=== PATIENT | male | born 1940 | race Caucasian/White ===

== ENCOUNTER 2017-06-15 11:55 | Day surgery (SDC) | payer MEDICARE, OTHER ==
[~2017-06-15] VITALS: Ht 180.3 cm; Wt 89.0 kg
[~2017-06-15 11:55] MED LIST: ACETAMINOPHEN500 MG PO; ASPI325EC PO; Aspir 8181 MG PO; CETI5 PO; CHLO25A; CHLO25A PO; CLAR500 PO; CLIN300 PO; ESOM20 PO; FEXPSEER PO; Hair, Skin & N1 EACH PO; LEVFLO500 PO; Multi-Day Vita1 EACH PO; OMEP20ER PO; ONDA8 PO; OXYC10TA19 PO; Oxycodone-Apap1 EAC3; PROC10; RITUXIMAB; TREANDA25 MG IV
[2017-06-15] MEDS ORDERED: Omeprazole20 M1 PO (12:49)
[2017-06-15] MEDS ORDERED: CITA20 PO (12:49)
[2017-06-15] MEDS ORDERED: FLONASE ALLERG9.9 ML INH (12:50)
[2018-02-11] MEDS ORDERED: Celexa20 MG PO (09:24)
[2018-02-11] MEDS ORDERED: Lomotil Tablet1 EACH PO (09:26)
[2018-02-14] MEDS ORDERED: Zofran4 MG PO (14:33)
[2018-02-14] MEDS ORDERED: CIPR500 PO (14:34)
[2018-02-14] MEDS ORDERED: VANC125 PO (14:34)
[2018-02-14] MEDS ORDERED: SACC250C PO (14:34)
[2018-03-08] MEDS ORDERED: PRED20 PO (10:24)
== END 2017-06-15 14:35 | disposition home or self-care (01) ==
LOC: ORSCSDS 11:55
PROVIDERS: Ophthalmology
PROC: 08RK3JZ Replacement of Left Lens with Synthetic Substitute, Percutaneous Approach (ICD-10-PCS; principal; 2017-06-15 13:30)
DX: H25.12 Age-related nuclear cataract, left eye (principal); Z85.72 Personal history of non-Hodgkin lymphomas; Z79.82 Long term (current) use of aspirin; Z79.899 Other long term (current) drug therapy
CPT/HCPCS: J0171; J2250; J3010; J7040; V2632

== ENCOUNTER 2017-06-30 23:08 | Inpatient (IN) | payer MEDICARE, OTHER ==
[~2017-06-30] VITALS: Ht 182.9 cm; Wt 90.6 kg
[~2017-06-30 23:08] MED LIST changes: +CITA20 PO; +FLONASE ALLERG9.9 ML INH; +Omeprazole20 M1 PO
[2017-06-30 23:32] LABS: BASOPHILS ABSOLUTE AUTO 0.01 K/mm3 (0.00-0.23); BASOPHILS PERCENT AUTO 0 % (0-2); EOSINOPHILS ABSOLUTE AUTO 0.05 K/mm3 (0.00-0.68); EOSINOPHILS PERCENT AUTO 1 % (0-6); Hematocrit 32.8 % (37.0-53.0); Hemoglobin 10.8 g/dL (13.5-17.5); IMMATURE GRAN ABSOLUTE AUTO 0.05 K/mm3 (0.00-0.10); IMMATURE GRAN PERCENT AUTO 1 % (0-1); LYMPHOCYTES PERCENT AUTO 8 % (21-46); MONOCYTES ABSOLUTE AUTO 0.93 K/mm3 (0.16-1.47); MONOCYTES PERCENT AUTO 19 % (4-13); Mean Corpuscular HGB 29.4 pg (26.0-34.0); Mean Corpuscular HGB Conc 32.9 g/dL (31.5-36.5); Mean Corpuscular Volume 89 fL (80-100); Mean Platelet Volume 8.5 fL (9.1-12.4); NEUTROPHILS PERCENT AUTO 71 % (41-73); Platelet Count 204 K/mm3 (150-400); RDW Coefficient Variation 13.5 % (11.7-14.2); RDW Standard Deviation 44.4 fL (35.1-46.3); Red Blood Cell Count 3.67 M/mm3 (4.30-5.90); White Blood Cell Count 4.94 K/mm3 (4.00-11.30)
[2017-06-30 23:47] LABS: Alanine Aminotransfer (ALT/SGP 15 U/L (12-78); Albumin, Blood 2.3 g/dL (3.4-5.0); Albumin/Globulin Ratio 0.5 (0.8-1.8); Alk Phos 73 U/L (50-136); Anion Gap 6 mmol/L (6-16); Aspartate Aminotrans (AST/SGOT 23 U/L (12-37); Bilirubin, Total 0.3 mg/dL (0.1-1.0); Blood Urea Nitrogen 13 mg/dL (8-24); Bun/Creatinine Ratio 19.9 (12.0-20.0); CO2, Blood 28 mmol/L (21-32); Calcium, Blood 7.9 mg/dL (8.5-10.1); Chloride, Blood 101 mmol/L (98-108); Creatinine, Blood 0.65 mg/dL (0.60-1.20); Globulin, Blood 4.6 g/dL (2.2-4.0); Glomerular Filtration Rate >60 (60-); Glucose, Blood 102 mg/dL (70-99); Potassium, Blood 4.3 mmol/L (3.5-5.5); Sodium, Blood 135 mmol/L (136-145); Total Protein, Blood 6.9 g/dL (6.4-8.2)
[2017-06-30 23:50] LABS: Influenza A Negative (NEGATIVE); Influenza B Negative (NEGATIVE)
[2017-07-01] LABS: International Normalized Ratio 1.03; Prothrombin Time Results 10.7 Sec (9.7-11.5)
[2017-07-01 00:09] LABS: Troponin I <0.015 ng/mL (0.000-0.040)
[2017-07-01 00:53] LABS: Source, Urine Clean Catch
[2017-07-01 00:55] LABS: Bilirubin, Urine Neg (Neg); Blood, Urine 1+ (Neg); Glucose Qualitative, Urine Neg (Neg); Ketones, Urine 2+ (Neg); Leukocyte Esterase, Urine Neg (Neg); Nitrite, Urine Neg (Neg); Protein, Urine 2+ (Neg); Urobilinogen, Urine NORM (Normal); pH, Urine 6.5 (5.0-8.0)
[2017-07-01 01:03] LABS: Amorphous Light (0-Heavy); Appearance, Urine Clear (Clear); Bacteria Not Seen /hpf; Color, Urine Yellow (P-Yellow); Mucus Light (0-Heavy); Red Blood Cells, Urine Rare /hpf (0-2); Squamous Epithelial Cells Rare /hpf (Few); White Blood Cells, Urine Not Seen /hpf (0-5)
[2017-07-01 06:18] LABS: BASOPHILS ABSOLUTE AUTO 0.01 K/mm3 (0.00-0.23); BASOPHILS PERCENT AUTO 0 % (0-2); EOSINOPHILS ABSOLUTE AUTO 0.01 K/mm3 (0.00-0.68); EOSINOPHILS PERCENT AUTO 0 % (0-6); Hematocrit 29.4 % (37.0-53.0); Hemoglobin 9.9 g/dL (13.5-17.5); IMMATURE GRAN ABSOLUTE AUTO 0.03 K/mm3 (0.00-0.10); IMMATURE GRAN PERCENT AUTO 1 % (0-1); LYMPHOCYTES PERCENT AUTO 17 % (21-46); MONOCYTES ABSOLUTE AUTO 0.63 K/mm3 (0.16-1.47); MONOCYTES PERCENT AUTO 22 % (4-13); Mean Corpuscular HGB 29.7 pg (26.0-34.0); Mean Corpuscular HGB Conc 33.7 g/dL (31.5-36.5); Mean Corpuscular Volume 88 fL (80-100); Mean Platelet Volume 8.6 fL (9.1-12.4); NEUTROPHILS ABSOLUTE AUTO 1.71 K/mm3 (1.96-9.15); NEUTROPHILS PERCENT AUTO 59 % (41-73); Platelet Count 201 K/mm3 (150-400); RDW Coefficient Variation 13.5 % (11.7-14.2); RDW Standard Deviation 43.5 fL (35.1-46.3); Red Blood Cell Count 3.33 M/mm3 (4.30-5.90); White Blood Cell Count 2.89 K/mm3 (4.00-11.30)
[2017-07-01 06:28] LABS: Alanine Aminotransfer (ALT/SGP 13 U/L (12-78); Albumin, Blood 2.1 g/dL (3.4-5.0); Albumin/Globulin Ratio 0.5 (0.8-1.8); Alk Phos 66 U/L (50-136); Anion Gap 8 mmol/L (6-16); Aspartate Aminotrans (AST/SGOT 15 U/L (12-37); Bilirubin, Total 0.2 mg/dL (0.1-1.0); Blood Urea Nitrogen 12 mg/dL (8-24); Bun/Creatinine Ratio 18.8 (12.0-20.0); CO2, Blood 26 mmol/L (21-32); Chloride, Blood 103 mmol/L (98-108); Creatinine, Blood 0.64 mg/dL (0.60-1.20); Globulin, Blood 4.2 g/dL (2.2-4.0); Glomerular Filtration Rate >60 (60-); Glucose, Blood 102 mg/dL (70-99); Potassium, Blood 3.8 mmol/L (3.5-5.5); Sodium, Blood 137 mmol/L (136-145); Total Protein, Blood 6.3 g/dL (6.4-8.2)
[2017-07-02 05:14] LABS: Hematocrit 30.2 % (37.0-53.0); Hemoglobin 10.1 g/dL (13.5-17.5); Mean Corpuscular HGB 29.5 pg (26.0-34.0); Mean Corpuscular HGB Conc 33.4 g/dL (31.5-36.5); Mean Corpuscular Volume 88 fL (80-100); Mean Platelet Volume 8.6 fL (9.1-12.4); Platelet Count 195 K/mm3 (150-400); RDW Coefficient Variation 13.7 % (11.7-14.2); RDW Standard Deviation 44.1 fL (35.1-46.3); Red Blood Cell Count 3.42 M/mm3 (4.30-5.90); White Blood Cell Count 3.91 K/mm3 (4.00-11.30)
[2017-07-03 05:13] LABS: Hemoglobin 10.4 g/dL (13.5-17.5); Mean Corpuscular HGB 29.1 pg (26.0-34.0); Mean Corpuscular HGB Conc 33.5 g/dL (31.5-36.5); Mean Corpuscular Volume 87 fL (80-100); Mean Platelet Volume 8.6 fL (9.1-12.4); Platelet Count 195 K/mm3 (150-400); RDW Coefficient Variation 13.6 % (11.7-14.2); RDW Standard Deviation 43.2 fL (35.1-46.3); Red Blood Cell Count 3.58 M/mm3 (4.30-5.90); White Blood Cell Count 3.65 K/mm3 (4.00-11.30)
[2017-07-04] MEDS ORDERED: LEVO750 PO (10:46)
[2017-07-04] MEDS ORDERED: Pred Forte1 ML LEFTEYE (10:46)
[2018-02-11] MEDS ORDERED: Celexa20 MG PO (09:24)
[2018-02-11] MEDS ORDERED: Lomotil Tablet1 EACH PO (09:26)
[2018-02-14] MEDS ORDERED: Zofran4 MG PO (14:33)
[2018-02-14] MEDS ORDERED: VANC125 PO (14:34)
[2018-02-14] MEDS ORDERED: CIPR500 PO (14:34)
[2018-02-14] MEDS ORDERED: SACC250C PO (14:34)
[2018-03-08] MEDS ORDERED: PRED20 PO (10:24)
== END 2017-07-04 12:09 | disposition home health service (06) | DRG 871 ==
LOC: ER 23:08 → MEDS 23:09 → ENPENDDIS 07-04 10:11 → MEDS 07-04 12:09
PROVIDERS: Emergency Medicine; Internal Medicine; Physician Assistant
DX: A41.9 Sepsis, unspecified organism (principal); J18.9 Pneumonia, unspecified organism; C85.90 Non-Hodgkin lymphoma, unspecified, unspecified site; K21.9 Gastro-esophageal reflux disease without esophagitis; Z88.1 Allergy status to other antibiotic agents; Z88.0 Allergy status to penicillin; Z79.82 Long term (current) use of aspirin; Z79.899 Other long term (current) drug therapy
CPT/HCPCS: 36415; 71046; 80053; 81001; 83605; 83615; 84165; 84436; 84443; 84484; 85025; 85027; 85610; 85651; 85730; 85810; 86334; 87040; 87070; 87076; 87086; 87205; 87804; 93005; 93010; 96365; 96375; 97116; 97161; 99285; G0378; G8978; G8979; J0456; J0696; J1650; J1956; J3370; J3490; J7030; J7050

== ENCOUNTER 2017-08-30 12:12 | Inpatient (IN) | payer MEDICARE, OTHER ==
[~2017-08-30] VITALS: Ht 182.9 cm; Wt 88.1 kg
[~2017-08-30 12:12] MED LIST changes: +LEVO750 PO; +Pred Forte1 ML LEFTEYE
[2017-08-30 14:15] LABS: Hematocrit 34.9 % (37.0-53.0); Hemoglobin 11.4 g/dL (13.5-17.5); Mean Corpuscular HGB 29.4 pg (26.0-34.0); Mean Corpuscular HGB Conc 32.7 g/dL (31.5-36.5); Mean Corpuscular Volume 90 fL (80-100); Mean Platelet Volume 8.7 fL (9.1-12.4); Platelet Count 238 K/mm3 (150-400); RDW Coefficient Variation 14.2 % (11.7-14.2); RDW Standard Deviation 46.8 fL (35.1-46.3); Red Blood Cell Count 3.88 M/mm3 (4.30-5.90); White Blood Cell Count 3.31 K/mm3 (4.00-11.30)
[2017-08-30] MEDS ORDERED: CITA20 PO (14:19)
[2017-08-30 14:24] LABS: International Normalized Ratio 1.03; Prothrombin Time Results 10.7 Sec (9.7-11.5)
[2017-08-30 14:35] LABS: BAND PERCENT MAN 2 % (0-8); BASOPHILS PERCENT MAN 0 % (0-2); EOSINOPHILS ABSOLUTE MAN 0.03 K/mm3 (0.00-0.68); EOSINOPHILS PERCENT MAN 1 % (0-6); LYMPHOCYTES ABSOLUTE MAN 0.43 K/mm3 (0.84-5.20); LYMPHOCYTES PERCENT MAN 13 % (21-46); MONOCYTES ABSOLUTE MAN 0.43 K/mm3 (0.16-1.47); MONOCYTES PERCENT MAN 13 % (4-13); NEUTROPHILS ABSOLUTE MAN 2.41 K/mm3 (1.96-9.15); SEG NEUTROPHILS PERCENT MAN 71 % (41-73); TOTAL CELLS COUNTED 100
[2017-08-30 14:41] LABS: Alanine Aminotransfer (ALT/SGP 12 U/L (12-78); Albumin, Blood 2.7 g/dL (3.4-5.0); Albumin/Globulin Ratio 0.6 (0.8-1.8); Alk Phos 86 U/L (50-136); Anion Gap 5 mmol/L (6-16); Aspartate Aminotrans (AST/SGOT 17 U/L (12-37); Bilirubin, Total 0.3 mg/dL (0.1-1.0); Blood Urea Nitrogen 12 mg/dL (8-24); Bun/Creatinine Ratio 17.8 (12.0-20.0); CO2, Blood 27 mmol/L (21-32); Calcium, Blood 8.7 mg/dL (8.5-10.1); Chloride, Blood 106 mmol/L (98-108); Creatinine, Blood 0.67 mg/dL (0.60-1.20); Globulin, Blood 4.4 g/dL (2.2-4.0); Glomerular Filtration Rate >60 (60-); Glucose, Blood 90 mg/dL (70-99); Potassium, Blood 3.9 mmol/L (3.5-5.5); Sodium, Blood 138 mmol/L (136-145); Total Protein, Blood 7.1 g/dL (6.4-8.2)
[2017-08-31 04:38] LABS: BASOPHILS ABSOLUTE AUTO 0.02 K/mm3 (0.00-0.23); BASOPHILS PERCENT AUTO 1 % (0-2); EOSINOPHILS ABSOLUTE AUTO 0.02 K/mm3 (0.00-0.68); EOSINOPHILS PERCENT AUTO 1 % (0-6); Hematocrit 29.6 % (37.0-53.0); IMMATURE GRAN ABSOLUTE AUTO 0.02 K/mm3 (0.00-0.10); IMMATURE GRAN PERCENT AUTO 1 % (0-1); LYMPHOCYTES ABSOLUTE AUTO 0.86 K/mm3 (0.84-5.20); LYMPHOCYTES PERCENT AUTO 21 % (21-46); MONOCYTES ABSOLUTE AUTO 0.93 K/mm3 (0.16-1.47); MONOCYTES PERCENT AUTO 22 % (4-13); Mean Corpuscular HGB 29.4 pg (26.0-34.0); Mean Corpuscular HGB Conc 33.8 g/dL (31.5-36.5); Mean Platelet Volume 8.7 fL (9.1-12.4); NEUTROPHILS ABSOLUTE AUTO 2.31 K/mm3 (1.96-9.15); NEUTROPHILS PERCENT AUTO 55 % (41-73); Platelet Count 230 K/mm3 (150-400); RDW Coefficient Variation 14.4 % (11.7-14.2); RDW Standard Deviation 46.1 fL (35.1-46.3); White Blood Cell Count 4.16 K/mm3 (4.00-11.30)
[2017-08-31 04:52] LABS: Mean Corpuscular Volume 87 fL (80-100)
[2017-08-31 05:11] LABS: Very Low Density Lipoprot Chol 14 mg/dL (6-32)
[2017-08-31 05:20] LABS: Alanine Aminotransfer (ALT/SGP 10 U/L (12-78); Albumin, Blood 2.4 g/dL (3.4-5.0); Albumin/Globulin Ratio 0.6 (0.8-1.8); Alk Phos 77 U/L (50-136); Anion Gap 5 mmol/L (6-16); Aspartate Aminotrans (AST/SGOT 14 U/L (12-37); Bilirubin, Total 0.4 mg/dL (0.1-1.0); Blood Urea Nitrogen 13 mg/dL (8-24); Bun/Creatinine Ratio 21.5 (12.0-20.0); CHOL/HDL RATIO 3.1; CO2, Blood 26 mmol/L (21-32); Calcium, Blood 8.1 mg/dL (8.5-10.1); Chloride, Blood 104 mmol/L (98-108); Cholesterol 99 mg/dL (50-200); Creatinine, Blood 0.61 mg/dL (0.60-1.20); Glomerular Filtration Rate >60 (60-); Glucose, Blood 88 mg/dL (70-99); HDL Cholesterol 32 mg/dL (>39); LDL/HDL RATIO 1.7; Low Density Lipoprotein Chol 53 mg/dL (0-110); Potassium, Blood 3.7 mmol/L (3.5-5.5); Sodium, Blood 135 mmol/L (136-145); Thyroid Stimulating Hormone 0.648 uIU/mL (0.360-4.800); Total Protein, Blood 6.4 g/dL (6.4-8.2); Triglycerides 71 mg/dL (30-160)
[2017-09-01 05:01] LABS: BASOPHILS ABSOLUTE AUTO 0.02 K/mm3 (0.00-0.23); BASOPHILS PERCENT AUTO 1 % (0-2); EOSINOPHILS ABSOLUTE AUTO 0.16 K/mm3 (0.00-0.68); EOSINOPHILS PERCENT AUTO 4 % (0-6); Hemoglobin 10.5 g/dL (13.5-17.5); IMMATURE GRAN ABSOLUTE AUTO 0.02 K/mm3 (0.00-0.10); IMMATURE GRAN PERCENT AUTO 1 % (0-1); LYMPHOCYTES ABSOLUTE AUTO 0.51 K/mm3 (0.84-5.20); LYMPHOCYTES PERCENT AUTO 14 % (21-46); MONOCYTES ABSOLUTE AUTO 0.85 K/mm3 (0.16-1.47); MONOCYTES PERCENT AUTO 23 % (4-13); Mean Corpuscular HGB 29.2 pg (26.0-34.0); Mean Corpuscular HGB Conc 32.8 g/dL (31.5-36.5); Mean Corpuscular Volume 89 fL (80-100); Mean Platelet Volume 9.6 fL (9.1-12.4); NEUTROPHILS ABSOLUTE AUTO 2.12 K/mm3 (1.96-9.15); NEUTROPHILS PERCENT AUTO 58 % (41-73); Platelet Count 234 K/mm3 (150-400); RDW Coefficient Variation 14.4 % (11.7-14.2); RDW Standard Deviation 45.9 fL (35.1-46.3); Red Blood Cell Count 3.59 M/mm3 (4.30-5.90); White Blood Cell Count 3.68 K/mm3 (4.00-11.30)
[2017-09-01 06:08] LABS: Anion Gap 5 mmol/L (6-16); Blood Urea Nitrogen 16 mg/dL (8-24); Bun/Creatinine Ratio 22.6 (12.0-20.0); CO2, Blood 27 mmol/L (21-32); Calcium, Blood 8.2 mg/dL (8.5-10.1); Chloride, Blood 105 mmol/L (98-108); Creatinine, Blood 0.71 mg/dL (0.60-1.20); Glomerular Filtration Rate >60 (60-); Glucose, Blood 92 mg/dL (70-99); Sodium, Blood 137 mmol/L (136-145)
[2017-09-01 06:29] LABS: Percent Saturation 15.4 % (20.0-50.0)
[2017-09-02 05:22] LABS: BASOPHILS ABSOLUTE AUTO 0.02 K/mm3 (0.00-0.23); BASOPHILS PERCENT AUTO 1 % (0-2); EOSINOPHILS ABSOLUTE AUTO 0.14 K/mm3 (0.00-0.68); EOSINOPHILS PERCENT AUTO 4 % (0-6); Hematocrit 31.3 % (37.0-53.0); Hemoglobin 10.3 g/dL (13.5-17.5); IMMATURE GRAN ABSOLUTE AUTO 0.01 K/mm3 (0.00-0.10); IMMATURE GRAN PERCENT AUTO 0 % (0-1); LYMPHOCYTES ABSOLUTE AUTO 0.51 K/mm3 (0.84-5.20); LYMPHOCYTES PERCENT AUTO 15 % (21-46); MONOCYTES ABSOLUTE AUTO 0.72 K/mm3 (0.16-1.47); MONOCYTES PERCENT AUTO 22 % (4-13); Mean Corpuscular HGB 29.4 pg (26.0-34.0); Mean Corpuscular HGB Conc 32.9 g/dL (31.5-36.5); Mean Corpuscular Volume 89 fL (80-100); Mean Platelet Volume 8.7 fL (9.1-12.4); NEUTROPHILS ABSOLUTE AUTO 1.94 K/mm3 (1.96-9.15); NEUTROPHILS PERCENT AUTO 58 % (41-73); Platelet Count 220 K/mm3 (150-400); RDW Coefficient Variation 14.5 % (11.7-14.2); RDW Standard Deviation 46.5 fL (35.1-46.3); White Blood Cell Count 3.34 K/mm3 (4.00-11.30)
[2017-09-02 05:44] LABS: Anion Gap 5 mmol/L (6-16); Blood Urea Nitrogen 16 mg/dL (8-24); CO2, Blood 28 mmol/L (21-32); Calcium, Blood 8.2 mg/dL (8.5-10.1); Chloride, Blood 104 mmol/L (98-108); Glomerular Filtration Rate >60 (60-); Glucose, Blood 84 mg/dL (70-99); Potassium, Blood 4.1 mmol/L (3.5-5.5); Sodium, Blood 137 mmol/L (136-145)
[2017-09-02] MEDS ORDERED: Tylenol325 MG PO (11:18)
[2017-09-02] MEDS ORDERED: ATOR40TA PO (11:19)
== END 2017-09-02 13:30 | disposition home health service (06) | DRG 69 ==
LOC: ER 12:12 → PCU 12:13 → MEDS 17:45 → PCU 18:00 → MEDS 08-31 14:06 → PCU 08-31 14:07 → MEDS 08-31 18:44
PROVIDERS: Emergency Medicine; Internal Medicine
DX: G45.9 Transient cerebral ischemic attack, unspecified (principal); C85.90 Non-Hodgkin lymphoma, unspecified, unspecified site; R47.01 Aphasia; C61 Malignant neoplasm of prostate; K21.9 Gastro-esophageal reflux disease without esophagitis; R47.81 Slurred speech; R29.810 Facial weakness; I10 Essential (primary) hypertension; H91.90 Unspecified hearing loss, unspecified ear; Z88.1 Allergy status to other antibiotic agents; Z88.0 Allergy status to penicillin; Z79.82 Long term (current) use of aspirin; Z79.899 Other long term (current) drug therapy
CPT/HCPCS: 36415; 70450; 70496; 70498; 70551; 80048; 80053; 80061; 82728; 83540; 83550; 84443; 85025; 85610; 93005; 93010; 93306; 97116; 97162; 97166; 97530; 97535; 99285; C1751; G8978; G8979; G8980; G8987; G8988; G8989; J1650; J7030; Q9967

== ENCOUNTER 2017-09-22 11:03 | Emergency (ER) | payer MEDICARE, OTHER ==
[~2017-09-22] VITALS: Ht 182.9 cm; Wt 91.2 kg
[~2017-09-22 11:03] MED LIST changes: +ATOR40TA PO; +Tylenol325 MG PO
[2017-09-22] MEDS ORDERED: DESV50 PO (12:17)
[2017-09-22] MEDS ORDERED: Fludrocortison0.1 MG PO (12:17)
[2017-09-22] MEDS ORDERED: Coq-10100 MG PO (12:18)
[2017-09-22] MEDS ORDERED: CENTRUM COMPLE1 EACH PO (12:18)
[2017-09-22 13:33] LABS: BASOPHILS ABSOLUTE AUTO 0.02 K/mm3 (0.00-0.23); BASOPHILS PERCENT AUTO 1 % (0-2); EOSINOPHILS PERCENT AUTO 2 % (0-6); Hematocrit 29.9 % (37.0-53.0); IMMATURE GRAN ABSOLUTE AUTO 0.04 K/mm3 (0.00-0.10); IMMATURE GRAN PERCENT AUTO 1 % (0-1); LYMPHOCYTES PERCENT AUTO 19 % (21-46); MONOCYTES ABSOLUTE AUTO 1.04 K/mm3 (0.16-1.47); MONOCYTES PERCENT AUTO 25 % (4-13); Mean Corpuscular HGB 28.8 pg (26.0-34.0); Mean Corpuscular HGB Conc 33.4 g/dL (31.5-36.5); Mean Corpuscular Volume 86 fL (80-100); Mean Platelet Volume 8.6 fL (9.1-12.4); NEUTROPHILS PERCENT AUTO 52 % (41-73); Platelet Count 226 K/mm3 (150-400); RDW Coefficient Variation 14.1 % (11.7-14.2); RDW Standard Deviation 44.1 fL (35.1-46.3); Red Blood Cell Count 3.47 M/mm3 (4.30-5.90)
[2017-09-22 13:44] LABS: International Normalized Ratio 1.07; Prothrombin Time Results 11.1 Sec (9.7-11.5)
[2017-09-22 13:51] LABS: Alanine Aminotransfer (ALT/SGP 12 U/L (12-78); Albumin, Blood 2.3 g/dL (3.4-5.0); Albumin/Globulin Ratio 0.6 (0.8-1.8); Alk Phos 79 U/L (50-136); Anion Gap 7 mmol/L (6-16); Aspartate Aminotrans (AST/SGOT 14 U/L (12-37); Bilirubin, Total 0.2 mg/dL (0.1-1.0); Blood Urea Nitrogen 11 mg/dL (8-24); Bun/Creatinine Ratio 18.3 (12.0-20.0); CO2, Blood 27 mmol/L (21-32); Chloride, Blood 105 mmol/L (98-108); Globulin, Blood 3.9 g/dL (2.2-4.0); Glomerular Filtration Rate >60 (60-); Glucose, Blood 95 mg/dL (70-99); Potassium, Blood 3.8 mmol/L (3.5-5.5); Sodium, Blood 139 mmol/L (136-145); Total Protein, Blood 6.2 g/dL (6.4-8.2)
[2017-09-22] MEDS ORDERED: CLOP75 PO (15:41)
== END 2017-09-22 16:25 | disposition home or self-care (01) ==
LOC: ER 11:03
PROVIDERS: Physician Assistant
DX: G45.9 Transient cerebral ischemic attack, unspecified (principal); K21.9 Gastro-esophageal reflux disease without esophagitis; Z88.0 Allergy status to penicillin; Z88.1 Allergy status to other antibiotic agents; Z79.899 Other long term (current) drug therapy; Z79.82 Long term (current) use of aspirin
CPT/HCPCS: 36415; 70450; 80053; 81000; 82947; 84484; 85025; 85610; 93005; 93010; 99284

== ENCOUNTER 2017-09-24 23:10 | Emergency (ER) | payer MEDICARE, OTHER ==
[~2017-09-24] VITALS: Ht 180.3 cm; Wt 91.2 kg
[~2017-09-24 23:10] MED LIST changes: +CENTRUM COMPLE1 EACH PO; +CLOP75 PO; +Coq-10100 MG PO; +DESV50 PO; +Fludrocortison0.1 MG PO
== END 2017-09-25 00:41 | disposition home or self-care (01) ==
LOC: ER 23:10
DX: S40.011A Contusion of right shoulder, initial encounter (principal); K21.9 Gastro-esophageal reflux disease without esophagitis; Z88.0 Allergy status to penicillin; Z88.1 Allergy status to other antibiotic agents; Z79.899 Other long term (current) drug therapy; Z79.82 Long term (current) use of aspirin; Z79.01 Long term (current) use of anticoagulants; Z86.73 Personal history of transient ischemic attack (TIA), and cerebral infarction without residual deficits; W01.0XXA Fall on same level from slipping, tripping and stumbling without subsequent striking against object, initial encounter
CPT/HCPCS: 71046; 99284

== ENCOUNTER 2017-10-03 10:24 | Inpatient (IN) | payer MEDICARE, OTHER ==
[~2017-10-03] VITALS: Ht 180.3 cm; Wt 86.8 kg
[2017-10-03] MEDS ORDERED: ASPI81CH PO (10:52)
[2017-10-03 11:01] LABS: BASOPHILS ABSOLUTE AUTO 0.02 K/mm3 (0.00-0.23); BASOPHILS PERCENT AUTO 0 % (0-2); EOSINOPHILS ABSOLUTE AUTO 0.18 K/mm3 (0.00-0.68); EOSINOPHILS PERCENT AUTO 4 % (0-6); Hematocrit 31.8 % (37.0-53.0); Hemoglobin 10.6 g/dL (13.5-17.5); IMMATURE GRAN ABSOLUTE AUTO 0.02 K/mm3 (0.00-0.10); IMMATURE GRAN PERCENT AUTO 0 % (0-1); LYMPHOCYTES ABSOLUTE AUTO 0.67 K/mm3 (0.84-5.20); LYMPHOCYTES PERCENT AUTO 15 % (21-46); MONOCYTES ABSOLUTE AUTO 0.84 K/mm3 (0.16-1.47); MONOCYTES PERCENT AUTO 19 % (4-13); Mean Corpuscular HGB 28.7 pg (26.0-34.0); Mean Corpuscular HGB Conc 33.3 g/dL (31.5-36.5); Mean Platelet Volume 8.4 fL (9.1-12.4); NEUTROPHILS ABSOLUTE AUTO 2.77 K/mm3 (1.96-9.15); NEUTROPHILS PERCENT AUTO 62 % (41-73); Platelet Count 301 K/mm3 (150-400); RDW Coefficient Variation 13.9 % (11.7-14.2); RDW Standard Deviation 43.8 fL (35.1-46.3); Red Blood Cell Count 3.69 M/mm3 (4.30-5.90)
[2017-10-03 11:03] LABS: Mean Corpuscular Volume 86 fL (80-100)
[2017-10-03 11:26] LABS: Alanine Aminotransfer (ALT/SGP 17 U/L (12-78); Albumin, Blood 2.3 g/dL (3.4-5.0); Albumin/Globulin Ratio 0.5 (0.8-1.8); Alk Phos 76 U/L (50-136); Anion Gap 5 mmol/L (6-16); Aspartate Aminotrans (AST/SGOT 31 U/L (12-37); Bilirubin, Total 0.3 mg/dL (0.1-1.0); Blood Urea Nitrogen 12 mg/dL (8-24); Bun/Creatinine Ratio 20.9 (12.0-20.0); CO2, Blood 29 mmol/L (21-32); Calcium, Blood 8.2 mg/dL (8.5-10.1); Chloride, Blood 98 mmol/L (98-108); Creatinine, Blood 0.58 mg/dL (0.60-1.20); Globulin, Blood 4.5 g/dL (2.2-4.0); Glomerular Filtration Rate >60 (60-); Glucose, Blood 95 mg/dL (70-99); Potassium, Blood 4.1 mmol/L (3.5-5.5); Sodium, Blood 132 mmol/L (136-145); Total Protein, Blood 6.8 g/dL (6.4-8.2)
[2017-10-03 14:11] LABS: Source, Urine Catheter
[2017-10-03 14:19] LABS: Bilirubin, Urine Neg (Neg); Blood, Urine Neg (Neg); Glucose Qualitative, Urine Neg (Neg); Ketones, Urine Neg (Neg); Leukocyte Esterase, Urine Neg (Neg); Nitrite, Urine Neg (Neg); Protein, Urine Neg (Neg); Specific Gravity, Urine 1.015 (1.003-1.022); Urobilinogen, Urine NORM (Normal)
[2017-10-03 14:39] LABS: Appearance, Urine Clear (Clear); Color, Urine Pale Yellow (P-Yellow)
[2017-10-04 08:29] LABS: BASOPHILS ABSOLUTE AUTO 0.02 K/mm3 (0.00-0.23); BASOPHILS PERCENT AUTO 1 % (0-2); EOSINOPHILS ABSOLUTE AUTO 0.19 K/mm3 (0.00-0.68); EOSINOPHILS PERCENT AUTO 5 % (0-6); Hematocrit 31.6 % (37.0-53.0); Hemoglobin 10.5 g/dL (13.5-17.5); IMMATURE GRAN ABSOLUTE AUTO 0.02 K/mm3 (0.00-0.10); IMMATURE GRAN PERCENT AUTO 1 % (0-1); LYMPHOCYTES ABSOLUTE AUTO 0.59 K/mm3 (0.84-5.20); LYMPHOCYTES PERCENT AUTO 14 % (21-46); MONOCYTES ABSOLUTE AUTO 0.68 K/mm3 (0.16-1.47); MONOCYTES PERCENT AUTO 16 % (4-13); Mean Corpuscular HGB 29.1 pg (26.0-34.0); Mean Corpuscular HGB Conc 33.2 g/dL (31.5-36.5); Mean Corpuscular Volume 88 fL (80-100); Mean Platelet Volume 8.2 fL (9.1-12.4); NEUTROPHILS ABSOLUTE AUTO 2.69 K/mm3 (1.96-9.15); NEUTROPHILS PERCENT AUTO 64 % (41-73); Platelet Count 300 K/mm3 (150-400); RDW Coefficient Variation 13.9 % (11.7-14.2); RDW Standard Deviation 44.4 fL (35.1-46.3); Red Blood Cell Count 3.61 M/mm3 (4.30-5.90); White Blood Cell Count 4.19 K/mm3 (4.00-11.30)
[2017-10-04 08:46] LABS: Anion Gap 8 mmol/L (6-16); Blood Urea Nitrogen 12 mg/dL (8-24); Bun/Creatinine Ratio 20.4 (12.0-20.0); CO2, Blood 26 mmol/L (21-32); Calcium, Blood 8.2 mg/dL (8.5-10.1); Chloride, Blood 98 mmol/L (98-108); Creatinine, Blood 0.59 mg/dL (0.60-1.20); Glomerular Filtration Rate >60 (60-); Glucose, Blood 95 mg/dL (70-99); Potassium, Blood 4.2 mmol/L (3.5-5.5); Sodium, Blood 132 mmol/L (136-145)
[2017-10-05 06:32] LABS: Hemoglobin 9.8 g/dL (13.5-17.5); Mean Corpuscular HGB 29.3 pg (26.0-34.0); Mean Corpuscular HGB Conc 33.8 g/dL (31.5-36.5); Mean Corpuscular Volume 87 fL (80-100); Mean Platelet Volume 8.2 fL (9.1-12.4); Platelet Count 313 K/mm3 (150-400); RDW Coefficient Variation 13.7 % (11.7-14.2); RDW Standard Deviation 43.2 fL (35.1-46.3); Red Blood Cell Count 3.34 M/mm3 (4.30-5.90); White Blood Cell Count 8.48 K/mm3 (4.00-11.30)
[2017-10-05 07:05] LABS: Anion Gap 4 mmol/L (6-16); Blood Urea Nitrogen 20 mg/dL (8-24); Bun/Creatinine Ratio 30.9 (12.0-20.0); CO2, Blood 30 mmol/L (21-32); Calcium, Blood 8.3 mg/dL (8.5-10.1); Chloride, Blood 101 mmol/L (98-108); Creatinine, Blood 0.65 mg/dL (0.60-1.20); Glomerular Filtration Rate >60 (60-); Glucose, Blood 103 mg/dL (70-99); Potassium, Blood 4.1 mmol/L (3.5-5.5); Sodium, Blood 135 mmol/L (136-145)
[2017-10-05 18:07] LABS: Alanine Aminotransfer (ALT/SGP 16 U/L (12-78); Albumin, Blood 2.2 g/dL (3.4-5.0); Albumin/Globulin Ratio 0.5 (0.8-1.8); Alk Phos 72 U/L (50-136); Anion Gap 9 mmol/L (6-16); Aspartate Aminotrans (AST/SGOT 23 U/L (12-37); Bilirubin, Total 0.3 mg/dL (0.1-1.0); Blood Urea Nitrogen 21 mg/dL (8-24); Bun/Creatinine Ratio 32.5 (12.0-20.0); CO2, Blood 26 mmol/L (21-32); Calcium, Blood 8.3 mg/dL (8.5-10.1); Chloride, Blood 100 mmol/L (98-108); Creatinine, Blood 0.65 mg/dL (0.60-1.20); Globulin, Blood 4.2 g/dL (2.2-4.0); Glomerular Filtration Rate >60 (60-); Glucose, Blood 102 mg/dL (70-99); Potassium, Blood 4.4 mmol/L (3.5-5.5); Sodium, Blood 135 mmol/L (136-145); Total Protein, Blood 6.4 g/dL (6.4-8.2)
[2017-10-06 06:17] LABS: BASOPHILS ABSOLUTE AUTO 0.02 K/mm3 (0.00-0.23); BASOPHILS PERCENT AUTO 0 % (0-2); EOSINOPHILS ABSOLUTE AUTO 0.36 K/mm3 (0.00-0.68); EOSINOPHILS PERCENT AUTO 6 % (0-6); Hemoglobin 9.6 g/dL (13.5-17.5); IMMATURE GRAN ABSOLUTE AUTO 0.02 K/mm3 (0.00-0.10); IMMATURE GRAN PERCENT AUTO 0 % (0-1); LYMPHOCYTES ABSOLUTE AUTO 0.38 K/mm3 (0.84-5.20); LYMPHOCYTES PERCENT AUTO 7 % (21-46); MONOCYTES ABSOLUTE AUTO 0.65 K/mm3 (0.16-1.47); MONOCYTES PERCENT AUTO 11 % (4-13); Mean Corpuscular HGB 28.7 pg (26.0-34.0); Mean Corpuscular HGB Conc 33.1 g/dL (31.5-36.5); Mean Corpuscular Volume 87 fL (80-100); Mean Platelet Volume 8.3 fL (9.1-12.4); NEUTROPHILS ABSOLUTE AUTO 4.25 K/mm3 (1.96-9.15); NEUTROPHILS PERCENT AUTO 75 % (41-73); Platelet Count 303 K/mm3 (150-400); RDW Coefficient Variation 14.4 % (11.7-14.2); RDW Standard Deviation 45.2 fL (35.1-46.3); Red Blood Cell Count 3.34 M/mm3 (4.30-5.90); White Blood Cell Count 5.68 K/mm3 (4.00-11.30)
[2017-10-06 06:33] LABS: Anion Gap 7 mmol/L (6-16); Blood Urea Nitrogen 22 mg/dL (8-24); Bun/Creatinine Ratio 31.3 (12.0-20.0); CO2, Blood 27 mmol/L (21-32); Calcium, Blood 7.8 mg/dL (8.5-10.1); Chloride, Blood 102 mmol/L (98-108); Glomerular Filtration Rate >60 (60-); Glucose, Blood 94 mg/dL (70-99); Potassium, Blood 4.3 mmol/L (3.5-5.5); Sodium, Blood 136 mmol/L (136-145)
[2017-10-06] MEDS ORDERED: LEVFLO500 PO (09:31)
== END 2017-10-06 17:03 | DRG 194 ==
LOC: ER 10:24 → MEDS 15:23
PROVIDERS: Emergency Medicine; Internal Medicine; Internal Medicine Hematology & Oncology
PROC: 02HV33Z Insertion of Infusion Device into Superior Vena Cava, Percutaneous Approach (ICD-10-PCS; principal; 2017-10-04)
DX: J18.9 Pneumonia, unspecified organism (principal); E87.1 Hypo-osmolality and hyponatremia; C88.0 Waldenstrom macroglobulinemia; E86.0 Dehydration; K21.9 Gastro-esophageal reflux disease without esophagitis; F32.9 Major depressive disorder, single episode, unspecified; R53.81 Other malaise; F41.9 Anxiety disorder, unspecified; Z86.73 Personal history of transient ischemic attack (TIA), and cerebral infarction without residual deficits; Z79.02 Long term (current) use of antithrombotics/antiplatelets; Z79.82 Long term (current) use of aspirin; Z79.52 Long term (current) use of systemic steroids; Z79.899 Other long term (current) drug therapy; Z88.0 Allergy status to penicillin; Z88.8 Allergy status to other drugs, medicaments and biological substances; Z91.81 History of falling; Z85.46 Personal history of malignant neoplasm of prostate
CPT/HCPCS: 36415; 71046; 80048; 80053; 81003; 85025; 85027; 87040; 92610; 93005; 93010; 94640; 94760; 96361; 96365; 96368; 97162; 97165; 97530; 97535; 99285; G8978; G8979; G8987; G8988; G8996; G8997; G8998; J0696; J1100; J1650; J1956; J7030; J7050; J9070

== ENCOUNTER 2017-10-23 19:00 | Emergency (ER) | payer MEDICARE, OTHER ==
[~2017-10-23] VITALS: Ht 182.9 cm; Wt 81.7 kg
[~2017-10-23 19:00] MED LIST changes: +ASPI81CH PO
== END 2017-10-23 21:07 | disposition home or self-care (01) ==
LOC: ER 19:00
DX: S20.419A Abrasion of unspecified back wall of thorax, initial encounter (principal); K21.9 Gastro-esophageal reflux disease without esophagitis; Z88.0 Allergy status to penicillin; Z88.1 Allergy status to other antibiotic agents; Z79.899 Other long term (current) drug therapy; Z79.82 Long term (current) use of aspirin; Z79.01 Long term (current) use of anticoagulants; Z86.73 Personal history of transient ischemic attack (TIA), and cerebral infarction without residual deficits; W19.XXXA Unspecified fall, initial encounter; Y92.002 Bathroom of unspecified non-institutional (private) residence as the place of occurrence of the external cause
CPT/HCPCS: 72080; 99283

== ENCOUNTER 2017-11-04 09:33 | Emergency (ER) | payer MEDICARE, OTHER ==
[~2017-11-04] VITALS: Ht 180.3 cm; Wt 81.7 kg
[2017-11-04 10:08] LABS: BASOPHILS ABSOLUTE AUTO 0.02 K/mm3 (0.00-0.23); BASOPHILS PERCENT AUTO 1 % (0-2); EOSINOPHILS ABSOLUTE AUTO 0.43 K/mm3 (0.00-0.68); EOSINOPHILS PERCENT AUTO 10 % (0-6); Hematocrit 32.5 % (37.0-53.0); Hemoglobin 10.9 g/dL (13.5-17.5); IMMATURE GRAN ABSOLUTE AUTO 0.03 K/mm3 (0.00-0.10); IMMATURE GRAN PERCENT AUTO 1 % (0-1); LYMPHOCYTES ABSOLUTE AUTO 0.65 K/mm3 (0.84-5.20); LYMPHOCYTES PERCENT AUTO 16 % (21-46); MONOCYTES ABSOLUTE AUTO 0.74 K/mm3 (0.16-1.47); MONOCYTES PERCENT AUTO 18 % (4-13); Mean Corpuscular HGB 29.4 pg (26.0-34.0); Mean Corpuscular HGB Conc 33.5 g/dL (31.5-36.5); Mean Corpuscular Volume 88 fL (80-100); Mean Platelet Volume 8.8 fL (9.1-12.4); NEUTROPHILS ABSOLUTE AUTO 2.32 K/mm3 (1.96-9.15); NEUTROPHILS PERCENT AUTO 55 % (41-73); Platelet Count 243 K/mm3 (150-400); RDW Coefficient Variation 15.1 % (11.7-14.2); RDW Standard Deviation 48.6 fL (35.1-46.3); Red Blood Cell Count 3.71 M/mm3 (4.30-5.90); White Blood Cell Count 4.19 K/mm3 (4.00-11.30)
[2017-11-04 10:24] LABS: Alanine Aminotransfer (ALT/SGP 13 U/L (12-78); Albumin, Blood 2.4 g/dL (3.4-5.0); Albumin/Globulin Ratio 0.7 (0.8-1.8); Alk Phos 81 U/L (50-136); Anion Gap 7 mmol/L (6-16); Aspartate Aminotrans (AST/SGOT 14 U/L (12-37); Bilirubin, Total 0.4 mg/dL (0.1-1.0); Blood Urea Nitrogen 11 mg/dL (8-24); Bun/Creatinine Ratio 20.4 (12.0-20.0); CO2, Blood 29 mmol/L (21-32); Calcium, Blood 8.1 mg/dL (8.5-10.1); Chloride, Blood 105 mmol/L (98-108); Creatinine, Blood 0.54 mg/dL (0.60-1.20); Ethanol (Alcohol), Blood, Med <3 mg/dL; Globulin, Blood 3.6 g/dL (2.2-4.0); Glomerular Filtration Rate >60 (60-); Glucose, Blood 88 mg/dL (70-99); International Normalized Ratio 1.04; Potassium, Blood 4.1 mmol/L (3.5-5.5); Prothrombin Time Results 10.7 Sec (9.7-11.5); Sodium, Blood 141 mmol/L (136-145); Troponin I <0.015 ng/mL (0.000-0.040)
[2017-11-04 12:40] LABS: Source, Urine Clean Catch
[2017-11-04 12:47] LABS: Bilirubin, Urine Neg (Neg); Blood, Urine Neg (Neg); Glucose Qualitative, Urine Neg (Neg); Ketones, Urine Neg (Neg); Leukocyte Esterase, Urine Neg (Neg); Nitrite, Urine Neg (Neg); Protein, Urine Neg (Neg); Specific Gravity, Urine 1.015 (1.003-1.022); Urobilinogen, Urine NORM (Normal)
[2017-11-04 13:05] LABS: Color, Urine Yellow (P-Yellow)
[2017-11-04 13:06] LABS: Appearance, Urine Cloudy (Clear); Bacteria Not Seen /hpf; Red Blood Cells, Urine Not Seen /hpf (0-2); Squamous Epithelial Cells Few /hpf (Few); White Blood Cells, Urine Not Seen /hpf (0-5)
[2017-11-04 13:07] LABS: Amorphous Heavy (0-Heavy); Calcium Oxalate Crystals Rare /hpf
== END 2017-11-04 13:40 | disposition home or self-care (01) ==
LOC: ER 09:33
PROVIDERS: Emergency Medicine
DX: R07.9 Chest pain, unspecified (principal); E86.0 Dehydration; K21.9 Gastro-esophageal reflux disease without esophagitis; Z86.73 Personal history of transient ischemic attack (TIA), and cerebral infarction without residual deficits; Z88.0 Allergy status to penicillin; Z88.1 Allergy status to other antibiotic agents; Z79.899 Other long term (current) drug therapy; Z79.82 Long term (current) use of aspirin
CPT/HCPCS: 70450; 71046; 80053; 81001; 84484; 85025; 85610; 93005; 93010; 96360; 99284; G0480; J7030

== ENCOUNTER 2017-11-22 01:55 | Emergency (ER) | payer MEDICARE, OTHER ==
[~2017-11-22] VITALS: Ht 182.9 cm; Wt 90.7 kg
[2017-11-22 02:21] LABS: BASOPHILS ABSOLUTE AUTO 0.01 K/mm3 (0.00-0.23); BASOPHILS PERCENT AUTO 0 % (0-2); EOSINOPHILS ABSOLUTE AUTO 0.27 K/mm3 (0.00-0.68); EOSINOPHILS PERCENT AUTO 5 % (0-6); Hematocrit 32.3 % (37.0-53.0); Hemoglobin 10.5 g/dL (13.5-17.5); IMMATURE GRAN ABSOLUTE AUTO 0.04 K/mm3 (0.00-0.10); IMMATURE GRAN PERCENT AUTO 1 % (0-1); LYMPHOCYTES PERCENT AUTO 11 % (21-46); MONOCYTES ABSOLUTE AUTO 0.93 K/mm3 (0.16-1.47); MONOCYTES PERCENT AUTO 18 % (4-13); Mean Corpuscular HGB 28.5 pg (26.0-34.0); Mean Corpuscular HGB Conc 32.5 g/dL (31.5-36.5); Mean Corpuscular Volume 88 fL (80-100); NEUTROPHILS ABSOLUTE AUTO 3.43 K/mm3 (1.96-9.15); NEUTROPHILS PERCENT AUTO 65 % (41-73); NRBC ABSOLUTE 0.02 K/mm3 (0.00-0.02); NRBC Auto 0.4 /100 WBC (0.0-0.2); RDW Coefficient Variation 16.1 % (11.7-14.2); RDW Standard Deviation 52.5 fL (35.1-46.3); Red Blood Cell Count 3.69 M/mm3 (4.30-5.90); White Blood Cell Count 5.28 K/mm3 (4.00-11.30)
[2017-11-22 02:22] LABS: Mean Platelet Volume 10.3 fL (9.1-12.4); Platelet Count 194 K/mm3 (150-400)
[2017-11-22 02:37] LABS: Alanine Aminotransfer (ALT/SGP 15 U/L (12-78); Albumin, Blood 2.7 g/dL (3.4-5.0); Albumin/Globulin Ratio 0.8 (0.8-1.8); Alk Phos 90 U/L (50-136); Anion Gap 8 mmol/L (6-16); Aspartate Aminotrans (AST/SGOT 15 U/L (12-37); Bilirubin, Total 0.7 mg/dL (0.1-1.0); Blood Urea Nitrogen 12 mg/dL (8-24); Bun/Creatinine Ratio 20.4 (12.0-20.0); CO2, Blood 28 mmol/L (21-32); Calcium, Blood 8.7 mg/dL (8.5-10.1); Chloride, Blood 103 mmol/L (98-108); Creatinine, Blood 0.59 mg/dL (0.60-1.20); Globulin, Blood 3.4 g/dL (2.2-4.0); Glomerular Filtration Rate >60 (60-); Glucose, Blood 117 mg/dL (70-99); Potassium, Blood 3.8 mmol/L (3.5-5.5); Sodium, Blood 139 mmol/L (136-145); Total Protein, Blood 6.1 g/dL (6.4-8.2)
== END 2017-11-22 05:10 | disposition short-term general hospital (02) ==
LOC: ER 01:55
PROVIDERS: Emergency Medicine
DX: S06.5X0A Traumatic subdural hemorrhage without loss of consciousness, initial encounter (principal); W01.198A Fall on same level from slipping, tripping and stumbling with subsequent striking against other object, initial encounter; K21.9 Gastro-esophageal reflux disease without esophagitis; Z86.73 Personal history of transient ischemic attack (TIA), and cerebral infarction without residual deficits; Z88.0 Allergy status to penicillin; Z88.1 Allergy status to other antibiotic agents; Z79.899 Other long term (current) drug therapy; Z79.82 Long term (current) use of aspirin
CPT/HCPCS: 70450; 72125; 80053; 85025; 93005; 93010; 99285-25; J7030

== ENCOUNTER 2018-04-13 16:23 | Inpatient (IN) | payer MEDICARE, OTHER ==
[~2018-04-13] VITALS: Ht 188 cm; Wt 76.7 kg
[~2018-04-13 16:23] MED LIST changes: +CIPR500 PO; +Celexa20 MG PO; +Lomotil Tablet1 EACH PO; +PRED20 PO; +SACC250C PO; +VANC125 PO; +Zofran4 MG PO
[2018-04-13 19:09] LABS: BASOPHILS ABSOLUTE AUTO 0.03 K/mm3 (0.00-0.23); BASOPHILS PERCENT AUTO 1 % (0-2); EOSINOPHILS ABSOLUTE AUTO 0.37 K/mm3 (0.00-0.68); EOSINOPHILS PERCENT AUTO 6 % (0-6); Hematocrit 32.5 % (37.0-53.0); Hemoglobin 10.3 g/dL (13.5-17.5); IMMATURE GRAN ABSOLUTE AUTO 0.06 K/mm3 (0.00-0.10); IMMATURE GRAN PERCENT AUTO 1 % (0-1); LYMPHOCYTES ABSOLUTE AUTO 0.51 K/mm3 (0.84-5.20); LYMPHOCYTES PERCENT AUTO 9 % (21-46); MONOCYTES ABSOLUTE AUTO 1.22 K/mm3 (0.16-1.47); MONOCYTES PERCENT AUTO 21 % (4-13); Mean Corpuscular HGB 27.9 pg (26.0-34.0); Mean Corpuscular HGB Conc 31.7 g/dL (31.5-36.5); Mean Corpuscular Volume 88 fL (80-100); Mean Platelet Volume 8.9 fL (9.1-12.4); NEUTROPHILS ABSOLUTE AUTO 3.63 K/mm3 (1.96-9.15); NEUTROPHILS PERCENT AUTO 62 % (41-73); Platelet Count 332 K/mm3 (150-400); RDW Coefficient Variation 15.9 % (11.7-14.2); RDW Standard Deviation 51.5 fL (35.1-46.3); Red Blood Cell Count 3.69 M/mm3 (4.30-5.90); White Blood Cell Count 5.82 K/mm3 (4.00-11.30)
[2018-04-13 19:18] LABS: Alanine Aminotransfer (ALT/SGP 10 U/L (12-78); Albumin, Blood 2.2 g/dL (3.4-5.0); Albumin/Globulin Ratio 0.6 (0.8-1.8); Alk Phos 72 U/L (50-136); Anion Gap 6 mmol/L (6-16); Aspartate Aminotrans (AST/SGOT 8 U/L (12-37); Bilirubin, Total 0.5 mg/dL (0.1-1.0); Blood Urea Nitrogen 15 mg/dL (8-24); Bun/Creatinine Ratio 27.8 (12.0-20.0); CO2, Blood 30 mmol/L (21-32); Calcium, Blood 8.5 mg/dL (8.5-10.1); Chloride, Blood 99 mmol/L (98-108); Creatinine, Blood 0.54 mg/dL (0.60-1.20); Glomerular Filtration Rate >60 (60-); Glucose, Blood 100 mg/dL (70-99); Potassium, Blood 4.2 mmol/L (3.5-5.5); Sodium, Blood 135 mmol/L (136-145); Total Protein, Blood 6.2 g/dL (6.4-8.2)
[2018-04-13 19:26] LABS: International Normalized Ratio 1.02; Prothrombin Time Results 10.5 Sec (9.7-11.5)
[2018-04-13 20:18] LABS: Source, Urine Catheter
[2018-04-13 20:20] LABS: Bilirubin, Urine Neg (Neg); Blood, Urine 1+ (Neg); Glucose Qualitative, Urine Neg (Neg); Ketones, Urine Neg (Neg); Leukocyte Esterase, Urine Neg (Neg); Nitrite, Urine Neg (Neg); Protein, Urine 1+ (Neg); Specific Gravity, Urine 1.015 (1.003-1.022); Urobilinogen, Urine NORM (Normal); pH, Urine 6.5 (5.0-8.0)
[2018-04-13 20:26] LABS: Appearance, Urine Clear (Clear); Color, Urine Yellow (P-Yellow)
[2018-04-13 20:27] LABS: Hyaline Casts 0-2 /lpf (0-2)
[2018-04-13 20:28] LABS: Bacteria Not Seen /hpf; Squamous Epithelial Cells Not Seen /hpf (Few); White Blood Cells, Urine Not Seen /hpf (0-5)
[2018-04-13 21:18] LABS: Influenza A Negative (NEGATIVE); Influenza B Negative (NEGATIVE)
[2018-04-13 22:00] LABS: U Amphetamine Screen Not Detected; U Barbituate Screen Not Detected; U Benzodiazapine Screen Not Detected; U Buprenorphine Screen Not Detected; U Cannabinoids Screen Not Detected; U Cocaine Screen Not Detected; U Methadone Screen Not Detected; U Methamphetamine Screen Not Detected; U Opiates Screen Not Detected; U Oxycodone Screen Not Detected; U Phencyclidine Screen Not Detected; U Propoxyphene Screen Not Detected
[2018-04-14 05:24] LABS: Hematocrit 34.5 % (37.0-53.0); Hemoglobin 10.6 g/dL (13.5-17.5); Mean Corpuscular HGB 28.6 pg (26.0-34.0); Mean Corpuscular HGB Conc 30.7 g/dL (31.5-36.5); Mean Platelet Volume 8.6 fL (9.1-12.4); Platelet Count 294 K/mm3 (150-400); RDW Coefficient Variation 16.1 % (11.7-14.2); RDW Standard Deviation 55.6 fL (35.1-46.3)
[2018-04-14 05:26] LABS: Mean Corpuscular Volume 93 fL (80-100)
[2018-04-14 05:46] LABS: Anion Gap 6 mmol/L (6-16); Blood Urea Nitrogen 14 mg/dL (8-24); Bun/Creatinine Ratio 26.9 (12.0-20.0); CO2, Blood 28 mmol/L (21-32); Calcium, Blood 8.4 mg/dL (8.5-10.1); Chloride, Blood 102 mmol/L (98-108); Creatinine, Blood 0.52 mg/dL (0.60-1.20); Glomerular Filtration Rate >60 (60-); Glucose, Blood 90 mg/dL (70-99); Potassium, Blood 4.4 mmol/L (3.5-5.5); Sodium, Blood 136 mmol/L (136-145)
[2018-04-16 10:57] LABS: BASOPHILS ABSOLUTE AUTO 0.02 K/mm3 (0.00-0.23); BASOPHILS PERCENT AUTO 1 % (0-2); EOSINOPHILS ABSOLUTE AUTO 0.23 K/mm3 (0.00-0.68); EOSINOPHILS PERCENT AUTO 6 % (0-6); Hematocrit 31.3 % (37.0-53.0); Hemoglobin 10.1 g/dL (13.5-17.5); IMMATURE GRAN ABSOLUTE AUTO 0.03 K/mm3 (0.00-0.10); IMMATURE GRAN PERCENT AUTO 1 % (0-1); LYMPHOCYTES ABSOLUTE AUTO 0.39 K/mm3 (0.84-5.20); LYMPHOCYTES PERCENT AUTO 10 % (21-46); MONOCYTES PERCENT AUTO 22 % (4-13); Mean Corpuscular HGB 28.2 pg (26.0-34.0); Mean Corpuscular HGB Conc 32.3 g/dL (31.5-36.5); NEUTROPHILS ABSOLUTE AUTO 2.44 K/mm3 (1.96-9.15); NEUTROPHILS PERCENT AUTO 61 % (41-73); Platelet Count 304 K/mm3 (150-400); RDW Coefficient Variation 15.8 % (11.7-14.2); RDW Standard Deviation 50.3 fL (35.1-46.3); Red Blood Cell Count 3.58 M/mm3 (4.30-5.90); White Blood Cell Count 4.01 K/mm3 (4.00-11.30)
[2018-04-16 11:02] LABS: Mean Corpuscular Volume 87 fL (80-100)
[2018-04-16 11:20] LABS: Anion Gap 6 mmol/L (6-16); Blood Urea Nitrogen 11 mg/dL (8-24); Bun/Creatinine Ratio 24.7 (12.0-20.0); CO2, Blood 31 mmol/L (21-32); Calcium, Blood 8.4 mg/dL (8.5-10.1); Chloride, Blood 98 mmol/L (98-108); Creatinine, Blood 0.45 mg/dL (0.60-1.20); Glomerular Filtration Rate >60 (60-); Glucose, Blood 141 mg/dL (70-99); Potassium, Blood 3.8 mmol/L (3.5-5.5); Sodium, Blood 135 mmol/L (136-145)
== END 2018-04-19 12:19 | DRG 92 ==
LOC: ER 16:23 → MEDS 16:24 → ENPENDDIS 04-19 10:05 → MEDS 04-19 12:19
PROVIDERS: Emergency Medicine; Internal Medicine; Nurse Practitioner Acute Care; Physician Assistant
DX: G92 Toxic encephalopathy (principal); R65.10 Systemic inflammatory response syndrome (SIRS) of non-infectious origin without acute organ dysfunction; C85.90 Non-Hodgkin lymphoma, unspecified, unspecified site; T45.1X5A Adverse effect of antineoplastic and immunosuppressive drugs, initial encounter; C88.0 Waldenstrom macroglobulinemia; Z86.73 Personal history of transient ischemic attack (TIA), and cerebral infarction without residual deficits; K21.9 Gastro-esophageal reflux disease without esophagitis; Z85.46 Personal history of malignant neoplasm of prostate; Z51.5 Encounter for palliative care; F41.8 Other specified anxiety disorders; K59.00 Constipation, unspecified; F03.90 Unspecified dementia, unspecified severity, without behavioral disturbance, psychotic disturbance, mood disturbance, and anxiety; R13.10 Dysphagia, unspecified; D64.9 Anemia, unspecified
CPT/HCPCS: 36415; 70450; 71046; 74176; 80048; 80053; 81001; 82947; 83605; 85025; 85027; 85610; 87040; 87086; 87804; 92526; 92610; 93005; 93010; 94762; 97110; 97162; 97166; 97530; 99285-25; G8978; G8979; G8987; G8988; G8996; G8997; J1650; J7030

== ENCOUNTER 2018-05-14 14:01 | Inpatient (IN) | payer MEDICARE, OTHER ==
[~2018-05-14] VITALS: Ht 185.4 cm; Wt 76.0 kg
[2018-05-14] MEDS ORDERED: Trexall10 MG PO (14:18)
[2018-05-14 15:32] LABS: Hematocrit 34.6 % (37.0-53.0); Hemoglobin 11.1 g/dL (13.5-17.5); Mean Corpuscular HGB 27.7 pg (26.0-34.0); Mean Corpuscular HGB Conc 32.1 g/dL (31.5-36.5); Mean Corpuscular Volume 86 fL (80-100); Mean Platelet Volume 8.9 fL (9.1-12.4); Platelet Count 365 K/mm3 (150-400); RDW Coefficient Variation 16.2 % (11.7-14.2); RDW Standard Deviation 50.9 fL (35.1-46.3); Red Blood Cell Count 4.01 M/mm3 (4.30-5.90)
[2018-05-14 15:44] LABS: Alanine Aminotransfer (ALT/SGP 13 U/L (12-78); Albumin, Blood 2.5 g/dL (3.4-5.0); Albumin/Globulin Ratio 0.5 (0.8-1.8); Alk Phos 86 U/L (50-136); Anion Gap 7 mmol/L (6-16); Aspartate Aminotrans (AST/SGOT 12 U/L (12-37); Bilirubin, Total 0.5 mg/dL (0.1-1.0); Blood Urea Nitrogen 16 mg/dL (8-24); Bun/Creatinine Ratio 29.1 (12.0-20.0); CO2, Blood 28 mmol/L (21-32); Calcium, Blood 8.7 mg/dL (8.5-10.1); Chloride, Blood 96 mmol/L (98-108); Creatinine, Blood 0.55 mg/dL (0.60-1.20); Globulin, Blood 4.7 g/dL (2.2-4.0); Glomerular Filtration Rate >60 (60-); Glucose, Blood 177 mg/dL (70-99); International Normalized Ratio 1.03; Potassium, Blood 4.9 mmol/L (3.5-5.5); Prothrombin Time Results 10.6 Sec (9.7-11.5); Sodium, Blood 131 mmol/L (136-145); Total Protein, Blood 7.2 g/dL (6.4-8.2)
[2018-05-14 15:51] LABS: Troponin I <0.015 ng/mL (0.000-0.040)
[2018-05-14 15:55] LABS: BAND PERCENT MAN 1 % (0-8); BASOPHILS PERCENT MAN 0 % (0-2); EOSINOPHILS PERCENT MAN 0 % (0-6); LYMPHOCYTES PERCENT MAN 3 % (21-46); MONOCYTES ABSOLUTE MAN 0.92 K/mm3 (0.16-1.47); MONOCYTES PERCENT MAN 9 % (4-13); NEUTROPHILS ABSOLUTE MAN 9.06 K/mm3 (1.96-9.15); SEG NEUTROPHILS PERCENT MAN 87 % (41-73); TOTAL CELLS COUNTED 100
[2018-05-15 04:52] LABS: Source, Urine Clean Catch
[2018-05-15 04:54] LABS: Bilirubin, Urine Neg (Neg); Blood, Urine Neg (Neg); Glucose Qualitative, Urine Neg (Neg); Ketones, Urine Neg (Neg); Leukocyte Esterase, Urine Neg (Neg); Nitrite, Urine Neg (Neg); Protein, Urine 1+ (Neg); Urobilinogen, Urine NORM (Normal)
[2018-05-15 04:59] LABS: Appearance, Urine Clear (Clear); Color, Urine Yellow (P-Yellow)
--- NOTE | 2018-05-15 05:12 | NUR ---
*SHIFT SUMMARY* PATIENT IS ALERT AND ORIENTED. PATIENT HAS SUPPLEMENTAL OXYGEN AT BEDISDE THAT PT TAKES OFF AND ON NEEDED. PATIENT IS WEARING A CONTINUOUS PULSE OXIMETER. PATIENT HAS CPAP FOR SLEEP. PATIENT REQUESTED PAIN MEDICATIONS TWICE THROUGHOUT THE NIGHT AND WAS MEDICATED ORDERED. PATIENT ALSO HAD NAUSEA THIS MORNING AND WAS MEDICATED ORDERED SEE EMAR. PATIENT IS INCONTINENT AT TIMES. AT NIGHT HE REQUESTS TO USE THE URINAL. PATIENT IS REPORTED TO BE A SBA WITH FWW. PATIENT SLEPT THROUGHOUT MOST OF THE NIGHT. USES CALL LIGHT APPROPRIATELY. BED LOWERED AND LOCKED. RECIEVED ORDER FROM HOSPITALIST FOR PRM NYSTATIN POWDER FOR RASH UNDER PANNUS.
[2018-05-15 05:32] LABS: BASOPHILS ABSOLUTE AUTO 0.01 K/mm3 (0.00-0.23); BASOPHILS PERCENT AUTO 0 % (0-2); EOSINOPHILS ABSOLUTE AUTO 0.05 K/mm3 (0.00-0.68); EOSINOPHILS PERCENT AUTO 1 % (0-6); Hematocrit 27.1 % (37.0-53.0); Hemoglobin 8.6 g/dL (13.5-17.5); IMMATURE GRAN ABSOLUTE AUTO 0.02 K/mm3 (0.00-0.10); IMMATURE GRAN PERCENT AUTO 0 % (0-1); LYMPHOCYTES ABSOLUTE AUTO 0.68 K/mm3 (0.84-5.20); LYMPHOCYTES PERCENT AUTO 12 % (21-46); MONOCYTES ABSOLUTE AUTO 0.78 K/mm3 (0.16-1.47); MONOCYTES PERCENT AUTO 14 % (4-13); Mean Corpuscular HGB 27.6 pg (26.0-34.0); Mean Corpuscular HGB Conc 31.7 g/dL (31.5-36.5); Mean Corpuscular Volume 87 fL (80-100); Mean Platelet Volume 8.9 fL (9.1-12.4); NEUTROPHILS ABSOLUTE AUTO 3.97 K/mm3 (1.96-9.15); NEUTROPHILS PERCENT AUTO 72 % (41-73); Platelet Count 258 K/mm3 (150-400); RDW Coefficient Variation 16.2 % (11.7-14.2); RDW Standard Deviation 51.1 fL (35.1-46.3); Red Blood Cell Count 3.12 M/mm3 (4.30-5.90); White Blood Cell Count 5.51 K/mm3 (4.00-11.30)
[2018-05-15 05:48] LABS: Anion Gap 7 mmol/L (6-16); Blood Urea Nitrogen 14 mg/dL (8-24); Bun/Creatinine Ratio 28.2 (12.0-20.0); CO2, Blood 27 mmol/L (21-32); Calcium, Blood 8.1 mg/dL (8.5-10.1); Chloride, Blood 102 mmol/L (98-108); Glomerular Filtration Rate >60 (60-); Glucose, Blood 88 mg/dL (70-99); Potassium, Blood 3.8 mmol/L (3.5-5.5); Sodium, Blood 136 mmol/L (136-145)
--- NOTE | 2018-05-15 06:29 | NUR ---
*SHIFT SUMMARY* PATIENT BROUGHT TO THE FLOOR VIA STRETCHER FROM ER. PATIENT AWAKE BUT NOT SPEAKING TO STAFF. PATIENTS FAMILY WAS AT BEDSIDE, FAMILY STAYED TO ANSWER QUESTIONS. PATIENT NORMALLY LIVES AT HOME WITH AND DAUGHTER BUT HAS BEEN STAYING AT [facility]. PATIENT SLEPT MOST OF THE NIGHT. PATIENT DID WAKE UP AND PULL IV OUT OF LEFT THUMB. NEW IV STARTED IN RIGHT FOREARM. STOOL AND URINE SAMPLE SENT TO LAB ORDERED. PATIENT DOES NOT USE CALL LIGHT APPROPRIATELY. BED ALARM ON. PATIENT TOOK PILLS WHOLE. ER DOCTOR CONSULTED FOR DR. WAYNE IN ONCOLOGY. PATIENT IS ON 2L NASAL CANNULA. BED LOWERED AND LOCKED WITH CALL LIGHT IN REACH.
--- NOTE | 2018-05-15 19:05 | NUR ---
PATIENT VISITED BY DR. WAYNE. NEW MEDICATION ORDERED AND PLACED IN LOCKING DRAWER. FAMILY AT BEDSIDE MOST OF DAY. 4 BOWEL MOVEMENTS THIS SHIFT. WILL CONTINUE TO MONITOR
--- NOTE | 2018-05-16 04:54 | NUR ---
*SHIFT SUMMARY* PATIENT AWAKE AND RESPONDS TO QUESTIONS AT TIMES. PATIENT SLEPT THROUGHOUT THE NIGHT. PATIENT HAS A PRODUCTIVE COUGH. PATIENT SEEMS TO BE MORE AWAKE TODAY THAN YESTERDAY. PATIENT IS INCONTINENT. PATIENT DOES NOT USE CALL LIGHT. PATIENT DENIES ANY PAIN. NO NEW ACUTE CHANGES TO PATIENTS STATUS. BED LOWERED AND LOCKED. WITH CALL LIGHT IN REACH.
--- NOTE | 2018-05-16 17:02 | NUR ---
SHIFT SUMMARY- PT AXO TO SELF. PT WITHDRAWN WITH FLAT AFFECT. PT REFUSES TO ANSWER SOME QUESTIONS. DOES NOT USE CALL LIGHT. BED ALARM ON. BED IN LOWST POSITION. CALL LIGHT IN REACH. PT DENIES PAIN. DENIES N/V. DENIES SOB. RESP E/U ON 1L O2 NC. PT HAS BEEN TAKING HIS O2 OFF T/O THE DAY. PT REPEATEDLY REMINDED HE NEEDS TO KEEP HIS O2 ON. BEDREST AT THIS TIME. TURNS Q2H. FAMILY IN TO SEE PT TODAY. NO OTHER SIGNIFICANT CHANGES THIS SHIFT.
--- NOTE | 2018-05-17 06:31 | NUR ---
*SHIFT SUMMARY* PATIENT RESPONDS TO VERBAL STIMULI. PATIENT IS CONFUSED, HOWEVER PATIENT IS MORE RESPONSIVE TODAY THAN YESTERDAY. PATIENT ANSWERS QUESTIONS TODAY AND LAUGHED WITH STAFF. PATIENT ALSO FOLLOWED COMMANDS APPROPRIATELY. PATIENT SLEPT THROUGHOUT MOST OF THE NIGHT. PATIENT DID TRY TO GET OUT OF BED TWICE THROUGHOUT SHIFT STATING HE NEEDED TO GET INTO THE OTHER ROOM. BED ALARM HAS BEEN ON. CALL LIGHT IN REACH, PATIENT DOES NOT USE APPROPRIATELY. BED LOWERED AND LOCKED. NO NEW CHANGES TO PATIENTS STATUS.
--- NOTE | 2018-05-17 17:11 | NUR ---
SHIFT SUMMARY THE PATIENT PRESENTED THIS MORNING WITH VITALS WNL, A&O X2 AND LUNGS THAT WERE CLEAR, DIMINISHED THROUGHOUT. THE PATIENT HAS HAD TWO BM'S TODAY BOTH VERY FIRM AND FORMED. THE PATIENT HAS BEEN UP TO HIS CHAIR FOR MEALS. THE PATIENT'S FAMILY HAS BEEN IN TO VISIT TODAY FOR SEVERAL HOURS. THE PATIENT IS RESTING AT THIS TIME, WILL CONTINUE TO MONITOR.
--- NOTE | 2018-05-18 04:49 | NUR ---
SHIFT SUMMARY NO ACUTE CHANGES NOTED T/O NIGHT. PT BRIEF CHANGE Q 2 HRS AND REPOSITION. WILL CONTINUE TO MONITOR.
[2018-05-18] MEDS ORDERED: SACC250C PO (15:08)
--- NOTE | 2018-05-18 16:13 | NUR ---
PATIENT TRANSFER THE PATIENT WAS TRANSFERRED TO [facility] AFTER REPORT WAS CALLED TO HARLAN VALDIVIA. THE PATIENT WAS TRANSPORTED VIA AMBULANCE. THE PATIENT'S CHEMO MEDICATION WAS SENT WITH THE PATIENT.
== END 2018-05-18 16:02 | DRG 871 ==
LOC: ER 14:01 → MEDS 20:12 → ENPENDDIS 05-18 14:31 → MEDS 05-18 16:02
PROVIDERS: Emergency Medicine; Nurse Practitioner Acute Care; ADMIT Internal Medicine
DX: A41.9 Sepsis, unspecified organism (principal); J96.01 Acute respiratory failure with hypoxia; J69.0 Pneumonitis due to inhalation of food and vomit; A04.72 Enterocolitis due to Clostridium difficile, not specified as recurrent; C83.00 Small cell B-cell lymphoma, unspecified site; R65.20 Severe sepsis without septic shock; C88.0 Waldenstrom macroglobulinemia; K21.9 Gastro-esophageal reflux disease without esophagitis; Z88.1 Allergy status to other antibiotic agents; Z88.0 Allergy status to penicillin; Z88.8 Allergy status to other drugs, medicaments and biological substances; Z79.82 Long term (current) use of aspirin; Z79.02 Long term (current) use of antithrombotics/antiplatelets; Z79.52 Long term (current) use of systemic steroids; Z79.899 Other long term (current) drug therapy; Z86.73 Personal history of transient ischemic attack (TIA), and cerebral infarction without residual deficits; Z85.46 Personal history of malignant neoplasm of prostate
CPT/HCPCS: 36415; 71046; 80048; 80053; 83605; 83690; 84145; 84484; 85025; 85610; 87040; 87449; 87493; 93005; 93010; 96361; 96365; 96367; 97163; 97530; 99285-25; J0692; J0696; J1650; J7030; J7050; J8610

== ENCOUNTER 2018-09-22 23:44 | Emergency (ER) | payer MEDICARE, OTHER ==
[~2018-09-22] VITALS: Ht 182.9 cm; Wt 86.2 kg
[~2018-09-22 23:44] MED LIST changes: +Trexall10 MG PO
[2018-09-22 23:59] LABS: Source, Urine Catheter
[2018-09-23] LABS: Bilirubin, Urine Neg (Neg); Blood, Urine 5+ (Neg); Glucose Qualitative, Urine Neg (Neg); Ketones, Urine Neg (Neg); Leukocyte Esterase, Urine 2+ (Neg); Nitrite, Urine Neg (Neg); Protein, Urine 2+ (Neg); Specific Gravity, Urine 1.005 (1.003-1.022); Urobilinogen, Urine NORM (Normal)
[2018-09-23] MEDS ORDERED: IMBRUVICA420 MG PO (00:10)
[2018-09-23 00:11] LABS: Appearance, Urine Hazy (Clear); Color, Urine Red (P-Yellow); White Blood Cells, Urine 0-2 /hpf (0-5)
[2018-09-23 00:12] LABS: Bacteria Rare /hpf; Red Blood Cells, Urine TNTC /hpf (0-2); Squamous Epithelial Cells Not Seen /hpf (Few)
[2018-09-23 00:46] LABS: International Normalized Ratio 1.08; Prothrombin Time Results 11.4 Sec (9.7-11.5)
== END 2018-09-23 02:08 | disposition short-term general hospital (02) ==
LOC: ER 23:44
PROVIDERS: Emergency Medicine
DX: R33.9 Retention of urine, unspecified (principal); Z88.1 Allergy status to other antibiotic agents; Z88.8 Allergy status to other drugs, medicaments and biological substances; Z88.0 Allergy status to penicillin; Z79.899 Other long term (current) drug therapy; Z79.82 Long term (current) use of aspirin; K21.9 Gastro-esophageal reflux disease without esophagitis; Z86.73 Personal history of transient ischemic attack (TIA), and cerebral infarction without residual deficits
CPT/HCPCS: 81001; 85610; 87086; 99284

== ENCOUNTER 2018-10-10 16:22 | Emergency (ER) | payer MEDICARE, OTHER ==
[~2018-10-10] VITALS: Ht 180.3 cm; Wt 85.7 kg
[~2018-10-10 16:22] MED LIST changes: +IMBRUVICA420 MG PO
[2018-10-10 17:29] LABS: Alanine Aminotransfer (ALT/SGP 15 U/L (12-78); Albumin, Blood 3.7 g/dL (3.4-5.0); Albumin/Globulin Ratio 1.4 (0.8-1.8); Alk Phos 105 U/L (50-136); Anion Gap 6 mmol/L (6-16); Aspartate Aminotrans (AST/SGOT 13 U/L (12-37); Bilirubin, Total 0.8 mg/dL (0.1-1.0); Blood Urea Nitrogen 14 mg/dL (8-24); Bun/Creatinine Ratio 17.8 (12.0-20.0); CO2, Blood 26 mmol/L (21-32); Calcium, Blood 8.8 mg/dL (8.5-10.1); Chloride, Blood 108 mmol/L (98-108); Creatinine, Blood 0.79 mg/dL (0.60-1.20); Globulin, Blood 2.7 g/dL (2.2-4.0); Glomerular Filtration Rate >60 (60-); Glucose, Blood 77 mg/dL (70-99); Sodium, Blood 140 mmol/L (136-145); Total Protein, Blood 6.4 g/dL (6.4-8.2); Troponin I <0.015 ng/mL (0.000-0.040)
[2018-10-10 17:32] LABS: BASOPHILS ABSOLUTE AUTO 0.04 K/mm3 (0.00-0.23); BASOPHILS PERCENT AUTO 1 % (0-2); EOSINOPHILS ABSOLUTE AUTO 0.11 K/mm3 (0.00-0.68); EOSINOPHILS PERCENT AUTO 1 % (0-6); Hematocrit 43.2 % (37.0-53.0); Hemoglobin 14.1 g/dL (13.5-17.5); IMMATURE GRAN ABSOLUTE AUTO 0.02 K/mm3 (0.00-0.10); IMMATURE GRAN PERCENT AUTO 0 % (0-1); LYMPHOCYTES PERCENT AUTO 10 % (21-46); MONOCYTES PERCENT AUTO 9 % (4-13); Mean Corpuscular HGB 29.1 pg (26.0-34.0); Mean Corpuscular HGB Conc 32.6 g/dL (31.5-36.5); Mean Corpuscular Volume 89 fL (80-100); Mean Platelet Volume 11.5 fL (9.1-12.4); NEUTROPHILS ABSOLUTE AUTO 6.11 K/mm3 (1.96-9.15); NEUTROPHILS PERCENT AUTO 79 % (41-73); Platelet Count 147 K/mm3 (150-400); RDW Standard Deviation 53.1 fL (35.1-46.3); Red Blood Cell Count 4.85 M/mm3 (4.30-5.90); White Blood Cell Count 7.78 K/mm3 (4.00-11.30)
[2018-10-10 18:33] LABS: Source, Urine Catheter
[2018-10-10 18:56] LABS: Bilirubin, Urine Neg (Neg); Blood, Urine 4+ (Neg); Glucose Qualitative, Urine Neg (Neg); Ketones, Urine Neg (Neg); Leukocyte Esterase, Urine 3+ (Neg); Nitrite, Urine Neg (Neg); Protein, Urine 2+ (Neg); Specific Gravity, Urine 1.015 (1.003-1.022); Urobilinogen, Urine NORM (Normal)
[2018-10-10 19:24] LABS: Appearance, Urine Hazy (Clear); Color, Urine Yellow (P-Yellow)
[2018-10-10 19:25] LABS: Amorphous Light (0-Heavy); Bacteria Many /hpf; Squamous Epithelial Cells Rare /hpf (Few); White Blood Cells, Urine 50-100 /hpf (0-5)
[2018-10-10] MEDS ORDERED: CEPH500 PO (19:56)
== END 2018-10-10 20:32 | disposition home or self-care (01) ==
LOC: ER 16:22
PROVIDERS: Physician Assistant
DX: N39.0 Urinary tract infection, site not specified (principal); Z88.8 Allergy status to other drugs, medicaments and biological substances; Z88.1 Allergy status to other antibiotic agents; Z88.0 Allergy status to penicillin; Z79.899 Other long term (current) drug therapy; Z79.82 Long term (current) use of aspirin; K21.9 Gastro-esophageal reflux disease without esophagitis; Z86.73 Personal history of transient ischemic attack (TIA), and cerebral infarction without residual deficits
CPT/HCPCS: 36415; 51702; 51798; 80053; 81001; 83880; 84484; 85025; 87077; 87086; 87186; 93005; 93010; 96365-59; 99283-25; J0696

== ENCOUNTER 2018-10-14 18:13 | Emergency (ER) | payer MEDICARE, OTHER ==
[~2018-10-14] VITALS: Ht 182.9 cm; Wt 86.2 kg
[~2018-10-14 18:13] MED LIST changes: -ASPI81CH PO; +CEPH500 PO; +LO-DOSE ASPIRIN81 MG PO
[2018-10-14 18:47] LABS: BASOPHILS ABSOLUTE AUTO 0.05 K/mm3 (0.00-0.23); BASOPHILS PERCENT AUTO 1 % (0-2); EOSINOPHILS ABSOLUTE AUTO 0.16 K/mm3 (0.00-0.68); EOSINOPHILS PERCENT AUTO 2 % (0-6); Hematocrit 38.7 % (37.0-53.0); Hemoglobin 12.1 g/dL (13.5-17.5); IMMATURE GRAN ABSOLUTE AUTO 0.04 K/mm3 (0.00-0.10); IMMATURE GRAN PERCENT AUTO 1 % (0-1); LYMPHOCYTES ABSOLUTE AUTO 0.93 K/mm3 (0.84-5.20); LYMPHOCYTES PERCENT AUTO 14 % (21-46); MONOCYTES ABSOLUTE AUTO 0.65 K/mm3 (0.16-1.47); MONOCYTES PERCENT AUTO 10 % (4-13); Mean Corpuscular HGB 28.3 pg (26.0-34.0); Mean Corpuscular HGB Conc 31.3 g/dL (31.5-36.5); Mean Corpuscular Volume 91 fL (80-100); Mean Platelet Volume 11.8 fL (9.1-12.4); NEUTROPHILS ABSOLUTE AUTO 4.73 K/mm3 (1.96-9.15); NEUTROPHILS PERCENT AUTO 72 % (41-73); Platelet Count 127 K/mm3 (150-400); RDW Coefficient Variation 15.7 % (11.7-14.2); RDW Standard Deviation 51.9 fL (35.1-46.3); Red Blood Cell Count 4.27 M/mm3 (4.30-5.90); White Blood Cell Count 6.56 K/mm3 (4.00-11.30)
[2018-10-14] MEDS ORDERED: FURO40 PO (19:03)
[2018-10-14] MEDS ORDERED: POTCHL20ER PO (19:03)
[2018-10-14 19:13] LABS: Alanine Aminotransfer (ALT/SGP 14 U/L (12-78); Albumin, Blood 2.8 g/dL (3.4-5.0); Albumin/Globulin Ratio 1.1 (0.8-1.8); Alk Phos 96 U/L (50-136); Anion Gap 6 mmol/L (6-16); Aspartate Aminotrans (AST/SGOT 18 U/L (12-37); Bilirubin, Total 0.4 mg/dL (0.1-1.0); Blood Urea Nitrogen 16 mg/dL (8-24); Bun/Creatinine Ratio 21.3 (12.0-20.0); CO2, Blood 28 mmol/L (21-32); Chloride, Blood 105 mmol/L (98-108); Creatinine, Blood 0.75 mg/dL (0.60-1.20); Globulin, Blood 2.6 g/dL (2.2-4.0); Glomerular Filtration Rate >60 (60-); Glucose, Blood 119 mg/dL (70-99); Potassium, Blood 3.4 mmol/L (3.5-5.5); Sodium, Blood 139 mmol/L (136-145); Total Protein, Blood 5.4 g/dL (6.4-8.2); Troponin I <0.015 ng/mL (0.000-0.040)
[2018-10-27] MEDS ORDERED: Zithromax250 MG PO (13:23)
== END 2018-10-14 22:00 | disposition home or self-care (01) ==
LOC: ER 18:13
PROVIDERS: Emergency Medicine
DX: R07.9 Chest pain, unspecified (principal); R11.10 Vomiting, unspecified; Z88.8 Allergy status to other drugs, medicaments and biological substances; Z88.1 Allergy status to other antibiotic agents; Z88.0 Allergy status to penicillin; Z79.899 Other long term (current) drug therapy; Z79.82 Long term (current) use of aspirin; K21.9 Gastro-esophageal reflux disease without esophagitis; Z86.73 Personal history of transient ischemic attack (TIA), and cerebral infarction without residual deficits; Z85.46 Personal history of malignant neoplasm of prostate
CPT/HCPCS: 36415; 71046; 80053; 84484; 85025; 93005; 93010; 99285-25

== ENCOUNTER 2018-10-17 17:47 | Emergency (ER) | payer MEDICARE, OTHER ==
[~2018-10-17] VITALS: Ht 182.9 cm; Wt 85.7 kg
[~2018-10-17 17:47] MED LIST changes: +FURO40 PO; +POTCHL20ER PO
[2018-10-17] MEDS ORDERED: Kristalose20 GM PO (20:45)
[2018-10-27] MEDS ORDERED: Zithromax250 MG PO (13:23)
== END 2018-10-17 21:20 | disposition home or self-care (01) ==
LOC: ER 17:47
DX: N39.0 Urinary tract infection, site not specified (principal); K59.00 Constipation, unspecified; Z88.8 Allergy status to other drugs, medicaments and biological substances; Z88.0 Allergy status to penicillin; Z79.899 Other long term (current) drug therapy; Z88.1 Allergy status to other antibiotic agents; Z79.82 Long term (current) use of aspirin; Z86.73 Personal history of transient ischemic attack (TIA), and cerebral infarction without residual deficits; K21.9 Gastro-esophageal reflux disease without esophagitis
CPT/HCPCS: 51798; 99283-25

== ENCOUNTER 2018-10-21 20:08 | Emergency (ER) | payer MEDICARE, OTHER ==
[~2018-10-21] VITALS: Ht 182.9 cm; Wt 88.5 kg
[~2018-10-21 20:08] MED LIST changes: +Kristalose20 GM PO
[2018-10-21 20:51] LABS: Source, Urine Catheter
[2018-10-21 20:53] LABS: Bilirubin, Urine Neg (Neg); Blood, Urine 4+ (Neg); Color, Urine Yellow (P-Yellow); Glucose Qualitative, Urine Neg (Neg); Ketones, Urine Neg (Neg); Leukocyte Esterase, Urine 1+ (Neg); Nitrite, Urine Neg (Neg); Protein, Urine 1+ (Neg); Urobilinogen, Urine NORM (Normal)
[2018-10-21 20:54] LABS: Appearance, Urine Clear (Clear)
[2018-10-21 20:56] LABS: BASOPHILS ABSOLUTE AUTO 0.03 K/mm3 (0.00-0.23); BASOPHILS PERCENT AUTO 0 % (0-2); EOSINOPHILS ABSOLUTE AUTO 0.03 K/mm3 (0.00-0.68); EOSINOPHILS PERCENT AUTO 0 % (0-6); Hematocrit 26.3 % (37.0-53.0); Hemoglobin 8.9 g/dL (13.5-17.5); IMMATURE GRAN ABSOLUTE AUTO 0.07 K/mm3 (0.00-0.10); IMMATURE GRAN PERCENT AUTO 0 % (0-1); LYMPHOCYTES ABSOLUTE AUTO 1.35 K/mm3 (0.84-5.20); LYMPHOCYTES PERCENT AUTO 8 % (21-46); MONOCYTES ABSOLUTE AUTO 1.22 K/mm3 (0.16-1.47); MONOCYTES PERCENT AUTO 7 % (4-13); Mean Corpuscular HGB 29.8 pg (26.0-34.0); Mean Corpuscular HGB Conc 33.8 g/dL (31.5-36.5); Mean Corpuscular Volume 88 fL (80-100); Mean Platelet Volume 11.5 fL (9.1-12.4); NEUTROPHILS ABSOLUTE AUTO 15.16 K/mm3 (1.96-9.15); NEUTROPHILS PERCENT AUTO 85 % (41-73); Platelet Count 199 K/mm3 (150-400); RDW Coefficient Variation 15.4 % (11.7-14.2); RDW Standard Deviation 49.6 fL (35.1-46.3); Red Blood Cell Count 2.99 M/mm3 (4.30-5.90); White Blood Cell Count 17.86 K/mm3 (4.00-11.30)
[2018-10-21 20:59] LABS: Bacteria Mod /hpf; Hyaline Casts 0-2 /lpf (0-2); Squamous Epithelial Cells Not Seen /hpf (Few); White Blood Cells, Urine 0-2 /hpf (0-5)
[2018-10-21 21:12] LABS: Alanine Aminotransfer (ALT/SGP 24 U/L (12-78); Albumin, Blood 2.7 g/dL (3.4-5.0); Albumin/Globulin Ratio 1.1 (0.8-1.8); Alk Phos 129 U/L (50-136); Anion Gap 7 mmol/L (6-16); Aspartate Aminotrans (AST/SGOT 14 U/L (12-37); Bilirubin, Total 0.4 mg/dL (0.1-1.0); Blood Urea Nitrogen 18 mg/dL (8-24); Bun/Creatinine Ratio 29.3 (12.0-20.0); CO2, Blood 28 mmol/L (21-32); Calcium, Blood 8.2 mg/dL (8.5-10.1); Chloride, Blood 103 mmol/L (98-108); Creatinine, Blood 0.62 mg/dL (0.60-1.20); Globulin, Blood 2.5 g/dL (2.2-4.0); Glomerular Filtration Rate >60 (60-); Glucose, Blood 106 mg/dL (70-99); Potassium, Blood 2.9 mmol/L (3.5-5.5); Sodium, Blood 138 mmol/L (136-145); Total Protein, Blood 5.2 g/dL (6.4-8.2)
[2018-10-27] MEDS ORDERED: Zithromax250 MG PO (13:23)
== END 2018-10-22 01:06 | disposition home or self-care (01) ==
LOC: ER 20:08
PROVIDERS: Emergency Medicine
DX: E86.0 Dehydration (principal); R19.7 Diarrhea, unspecified; Z46.6 Encounter for fitting and adjustment of urinary device; K21.9 Gastro-esophageal reflux disease without esophagitis; Z88.8 Allergy status to other drugs, medicaments and biological substances; Z88.0 Allergy status to penicillin; Z88.1 Allergy status to other antibiotic agents; Z79.899 Other long term (current) drug therapy; Z79.82 Long term (current) use of aspirin
CPT/HCPCS: 36415; 71046; 80053; 81001; 83735; 85025; 87086; 93005; 93010; 96365; 99284-25; J3480; J7120

== ENCOUNTER 2018-10-28 11:37 | Inpatient (IN) | payer MEDICARE, OTHER ==
[~2018-10-28] VITALS: Ht 182.9 cm; Wt 81.2 kg
[~2018-10-28 11:37] MED LIST changes: +Zithromax250 MG PO
[2018-10-28 12:19] LABS: Source, Urine Catheter
[2018-10-28 12:26] LABS: Bilirubin, Urine Neg (Neg); Blood, Urine Neg (Neg); Glucose Qualitative, Urine Neg (Neg); Ketones, Urine Neg (Neg); Leukocyte Esterase, Urine Neg (Neg); Nitrite, Urine Neg (Neg); Protein, Urine Neg (Neg); Urobilinogen, Urine NORM (Normal)
[2018-10-28 12:27] LABS: Appearance, Urine Clear (Clear); Color, Urine Yellow (P-Yellow)
[2018-10-28 13:15] LABS: Alanine Aminotransfer (ALT/SGP 14 U/L (12-78); Albumin, Blood 2.6 g/dL (3.4-5.0); Alk Phos 97 U/L (50-136); Anion Gap 7 mmol/L (6-16); Aspartate Aminotrans (AST/SGOT 18 U/L (12-37); Bilirubin, Total 0.3 mg/dL (0.1-1.0); Blood Urea Nitrogen 8 mg/dL (8-24); Bun/Creatinine Ratio 11.6 (12.0-20.0); CO2, Blood 26 mmol/L (21-32); Calcium, Blood 7.6 mg/dL (8.5-10.1); Chloride, Blood 105 mmol/L (98-108); Creatinine, Blood 0.69 mg/dL (0.60-1.20); Globulin, Blood 2.6 g/dL (2.2-4.0); Glomerular Filtration Rate >60 (60-); Glucose, Blood 82 mg/dL (70-99); Potassium, Blood 3.6 mmol/L (3.5-5.5); Sodium, Blood 138 mmol/L (136-145); Total Protein, Blood 5.2 g/dL (6.4-8.2)
[2018-10-28] MEDS ORDERED: Fludrocortison0.1 MG PO (13:55)
[2018-10-28 14:07] LABS: Hematocrit 27.7 % (37.0-53.0); Hemoglobin 9.1 g/dL (13.5-17.5); Mean Corpuscular HGB 28.8 pg (26.0-34.0); Mean Corpuscular HGB Conc 32.9 g/dL (31.5-36.5); Mean Corpuscular Volume 88 fL (80-100); Mean Platelet Volume 10.5 fL (9.1-12.4); Platelet Count 238 K/mm3 (150-400); RDW Coefficient Variation 15.2 % (11.7-14.2); Red Blood Cell Count 3.16 M/mm3 (4.30-5.90); White Blood Cell Count 12.12 K/mm3 (4.00-11.30)
[2018-10-28 14:50] LABS: BAND PERCENT MAN 2 % (0-8); BASOPHILS PERCENT MAN 0 % (0-2); EOSINOPHILS PERCENT MAN 0 % (0-6); LYMPHOCYTES PERCENT MAN 5 % (21-46); MONOCYTES ABSOLUTE MAN 0.24 K/mm3 (0.16-1.47); MONOCYTES PERCENT MAN 2 % (4-13); NEUTROPHILS ABSOLUTE MAN 11.27 K/mm3 (1.96-9.15); SEG NEUTROPHILS PERCENT MAN 91 % (41-73); TOTAL CELLS COUNTED 100
[2018-10-29 04:41] LABS: Hematocrit 25.4 % (37.0-53.0); Hemoglobin 8.2 g/dL (13.5-17.5); Mean Corpuscular HGB 28.6 pg (26.0-34.0); Mean Corpuscular HGB Conc 32.3 g/dL (31.5-36.5); Mean Corpuscular Volume 89 fL (80-100); Mean Platelet Volume 10.3 fL (9.1-12.4); Platelet Count 223 K/mm3 (150-400); RDW Coefficient Variation 15.2 % (11.7-14.2); RDW Standard Deviation 49.3 fL (35.1-46.3); Red Blood Cell Count 2.87 M/mm3 (4.30-5.90); White Blood Cell Count 10.17 K/mm3 (4.00-11.30)
[2018-10-29 05:01] LABS: Anion Gap 6 mmol/L (6-16); Blood Urea Nitrogen 11 mg/dL (8-24); Bun/Creatinine Ratio 17.9 (12.0-20.0); CO2, Blood 28 mmol/L (21-32); Calcium, Blood 7.5 mg/dL (8.5-10.1); Chloride, Blood 106 mmol/L (98-108); Creatinine, Blood 0.62 mg/dL (0.60-1.20); Glomerular Filtration Rate >60 (60-); Glucose, Blood 85 mg/dL (70-99); Percent Saturation 4.6 % (20.0-50.0); Potassium, Blood 3.4 mmol/L (3.5-5.5); Sodium, Blood 140 mmol/L (136-145)
--- NOTE | 2018-10-29 06:30 | NUR ---
SHIFT SUMMARY PT TIRED AND ILL APPEARING. WAKES AND ANSWERS QUESTIONS APPROPRIATELY. LUNG SOUNDS COARSE. MOIST HACKING COUGH WITH LARGE AMOUNTS OF SPUTUM PRODUCTION. SPUTUM IS THICK AND GREEN. PT USING SUCTION AT BEDSIDE INDEPENDENTLY. PT INCONTINENT. ATTENDS IN PLACE. NO COMPLAINTS OF PAIN. SLEPT WELL THROUGH MUCH OF THE NIGHT. VSS. WILL CONTINUE TO MONITOR.
--- NOTE | 2018-10-29 11:46 | NUR ---
Patient is lying in bed and sleeping when I entered the patient's room. Patient struggled to open his eyes and struggled to keep them open more than a minute or so. Patient answered a few questions but volunteered no information. I asked patient if I could pray for him. Patient said, "Yes." I gladly provided prayer. I am not certain but I think patient fell a asleep during the prayer. I will continue to remain available to patient and family.
--- NOTE | 2018-10-29 18:19 | NUR ---
ALERT. LUNGS COARSE. USES SUCTION FOR THICK SECRETIONS. INCONTINENT. IV PATENT. PATIENT AT 90 DEGREES FOR MEDS AND FOOD. NO STRAWS. SATS HAVE BEEN LOW 90'S OFF OXYGEN. BED IN LOW POSITION. CALL LIGHT WITHIN REACH .[facility].
--- NOTE | 2018-10-30 03:44 | NUR ---
SHIFT SUMMARY PT ADMITTED FOR SPESIS SECONDARY TO LLL PNEUMONIA. FULL CODE. REGULAR DIET WITH ASPIRATION PRECAUTIONS, NO STRAW, NO GRAPEFRUIT OR ORANGE THIS CAUSES ISSUES WITH THE PATIENTES CANCER MEDICATIONS PER REPORT. CANCER MEDICATIONS ARE HOME MEDS THAT ARE IN THE PTS DRAWER. UP IN CHAIR AT 90 DEGREES FOR ALL EATING AND DRINKING. SCDS FOR DVT PROPHYLAXIS. 20G IV TO R WRIST. TAKES MEDICATIONS WHOLE. THE PT PRESENTED WITH C/O FEVER AND WEAKNESS VIA EMS. 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 THE PT IS COOPERATIVE, PRESENTS VERY FATIGUED, WITH FLAT AFFECT. THE PT HAS APPEARED TO SLEEP COMFORTABLY MOST OF THE NIGHT. FREQUENT VISUAL CHECKS IT IS UNCLEAR IF PT WILL USE THE CALL LIGHT WHEN NEEDING ASSISTANCE. NO APPARENT SIGNS OF ACUTE DISTRESS. WILL CONTINUE TO MONITOR.
[2018-10-30 04:56] LABS: Hemoglobin 7.8 g/dL (13.5-17.5); Mean Corpuscular HGB 28.6 pg (26.0-34.0); Mean Corpuscular HGB Conc 32.5 g/dL (31.5-36.5); Mean Corpuscular Volume 88 fL (80-100); Mean Platelet Volume 10.6 fL (9.1-12.4); Platelet Count 197 K/mm3 (150-400); RDW Coefficient Variation 15.3 % (11.7-14.2); RDW Standard Deviation 49.1 fL (35.1-46.3); Red Blood Cell Count 2.73 M/mm3 (4.30-5.90)
[2018-10-30 05:13] LABS: Anion Gap 4 mmol/L (6-16); Blood Urea Nitrogen 12 mg/dL (8-24); Bun/Creatinine Ratio 16.4 (12.0-20.0); CO2, Blood 29 mmol/L (21-32); Calcium, Blood 7.6 mg/dL (8.5-10.1); Chloride, Blood 106 mmol/L (98-108); Creatinine, Blood 0.73 mg/dL (0.60-1.20); Glomerular Filtration Rate >60 (60-); Glucose, Blood 81 mg/dL (70-99); Potassium, Blood 3.8 mmol/L (3.5-5.5); Sodium, Blood 139 mmol/L (136-145)
--- NOTE | 2018-10-30 10:55 | NUR ---
LEFT MESSAGE ON VOICE MAIL; NO IV ASSESS W/ULTRASOUND ALSO CHECKING, HAVE NOT GIVEN IV IRON, NO FOOT VEINS. WONDERING ABOUT MEDIPORT? ALSO RELATIVES WANT CONTACTED FOR POSSIBLE LABS FROM HIM.AWAITING ORDERS
[2018-10-30 12:33] LABS: Percent Saturation 15.1 % (20.0-50.0)
[2018-10-31 00:18] LABS: Stool Occult Blood Guaiac 1 Pos (Neg)
--- NOTE | 2018-10-31 03:54 | NUR ---
NOC SHIFT SUMMARY PT HAS BEEN PLEASANT AND COOPERATIVE WITH CARE THIS NIGHT. VSS. HE DID HAVE A VERY LARGE BM AND STOOL WAS POSITIVE FOR OCCULT BLOOD. HE IS A BIT CONFUSED BUT KNOWS WHO HE IS AND CAN ANSWERE QUESTIONS APPROPRIATELY. FOLLOWS DIRECTIONS WELL. HE HAS SLEPT FOR MOST OF NIGHT AND APPEARS IN NO ACUTE DISTRESS AT THIS TIME. WILL CONTINUE TO MONITOR.
[2018-10-31 05:04] LABS: BASOPHILS ABSOLUTE AUTO 0.02 K/mm3 (0.00-0.23); BASOPHILS PERCENT AUTO 0 % (0-2); EOSINOPHILS ABSOLUTE AUTO 0.05 K/mm3 (0.00-0.68); EOSINOPHILS PERCENT AUTO 1 % (0-6); Hematocrit 27.4 % (37.0-53.0); Hemoglobin 9.2 g/dL (13.5-17.5); IMMATURE GRAN ABSOLUTE AUTO 0.13 K/mm3 (0.00-0.10); IMMATURE GRAN PERCENT AUTO 2 % (0-1); LYMPHOCYTES PERCENT AUTO 16 % (21-46); MONOCYTES ABSOLUTE AUTO 0.52 K/mm3 (0.16-1.47); MONOCYTES PERCENT AUTO 8 % (4-13); Mean Corpuscular HGB 28.7 pg (26.0-34.0); Mean Corpuscular HGB Conc 33.6 g/dL (31.5-36.5); Mean Platelet Volume 10.3 fL (9.1-12.4); NEUTROPHILS ABSOLUTE AUTO 4.53 K/mm3 (1.96-9.15); NEUTROPHILS PERCENT AUTO 73 % (41-73); Platelet Count 206 K/mm3 (150-400); RDW Standard Deviation 47.3 fL (35.1-46.3); Red Blood Cell Count 3.21 M/mm3 (4.30-5.90); White Blood Cell Count 6.25 K/mm3 (4.00-11.30)
[2018-10-31 05:09] LABS: Mean Corpuscular Volume 85 fL (80-100)
[2018-10-31 05:22] LABS: Albumin, Blood 2.1 g/dL (3.4-5.0); Anion Gap 5 mmol/L (6-16); Blood Urea Nitrogen 15 mg/dL (8-24); Bun/Creatinine Ratio 21.6 (12.0-20.0); CO2, Blood 27 mmol/L (21-32); Calcium, Blood 7.6 mg/dL (8.5-10.1); Chloride, Blood 106 mmol/L (98-108); Glomerular Filtration Rate >60 (60-); Glucose, Blood 77 mg/dL (70-99); Phosphorus, Blood 2.8 mg/dL (2.5-4.9); Potassium, Blood 3.9 mmol/L (3.5-5.5); Sodium, Blood 138 mmol/L (136-145)
--- NOTE | 2018-10-31 19:05 | NUR ---
SHIFT SUMMARY PT HAS HAD NO COMPLAINTS THIS SHIFT. PT VERY SLEEPY MOST OF THE SHIFT. PT WORKED WITH PT THIS AM. SAT IN CHAIR FOR MEALS AND HAD A GOOD APPETITE FOR LUNCH AND DINNER. NO ACUTE CHANGES THIS SHIFT. CALL LIGHT IN REACH. WILL CONTINUE TO MONITOR AND REPORT TO ONCOMING RN.
--- NOTE | 2018-10-31 19:40 | NUR ---
Family left for evening. Pt looks markedly thinner and frail compared to last encounter. will see what oncology plan is and speak with daughter. Last review they wanted full treatment. will see if this visit they will bring hearing aids and see if they work and if pt will engage.
[2018-11-01 04:59] LABS: BASOPHILS ABSOLUTE AUTO 0.03 K/mm3 (0.00-0.23); BASOPHILS PERCENT AUTO 1 % (0-2); EOSINOPHILS PERCENT AUTO 2 % (0-6); Hematocrit 28.9 % (37.0-53.0); Hemoglobin 9.5 g/dL (13.5-17.5); IMMATURE GRAN PERCENT AUTO 2 % (0-1); LYMPHOCYTES ABSOLUTE AUTO 0.83 K/mm3 (0.84-5.20); LYMPHOCYTES PERCENT AUTO 16 % (21-46); MONOCYTES ABSOLUTE AUTO 0.43 K/mm3 (0.16-1.47); MONOCYTES PERCENT AUTO 8 % (4-13); Mean Corpuscular HGB 28.5 pg (26.0-34.0); Mean Corpuscular HGB Conc 32.9 g/dL (31.5-36.5); Mean Corpuscular Volume 87 fL (80-100); Mean Platelet Volume 10.4 fL (9.1-12.4); NEUTROPHILS ABSOLUTE AUTO 3.77 K/mm3 (1.96-9.15); NEUTROPHILS PERCENT AUTO 72 % (41-73); Platelet Count 212 K/mm3 (150-400); RDW Coefficient Variation 15.3 % (11.7-14.2); RDW Standard Deviation 48.6 fL (35.1-46.3); Red Blood Cell Count 3.33 M/mm3 (4.30-5.90); White Blood Cell Count 5.26 K/mm3 (4.00-11.30)
[2018-11-01 05:33] LABS: Albumin, Blood 2.2 g/dL (3.4-5.0); Anion Gap 4 mmol/L (6-16); Blood Urea Nitrogen 20 mg/dL (8-24); Bun/Creatinine Ratio 29.1 (12.0-20.0); CO2, Blood 29 mmol/L (21-32); Calcium, Blood 7.8 mg/dL (8.5-10.1); Chloride, Blood 108 mmol/L (98-108); Creatinine, Blood 0.69 mg/dL (0.60-1.20); Glomerular Filtration Rate >60 (60-); Glucose, Blood 80 mg/dL (70-99); Phosphorus, Blood 2.9 mg/dL (2.5-4.9); Potassium, Blood 4.2 mmol/L (3.5-5.5); Sodium, Blood 141 mmol/L (136-145)
--- NOTE | 2018-11-01 06:36 | NUR ---
SHIFT SUMMARY PT IS A 78 Y/O MALE, ADMITTED FOR SEPSIS. HE IS A&O X 2, AND ON BEDREST. NO COMPLAINTS OF PAIN, NAUSEA OR SOB, AND PT SLEPT WELL THROUGH THE NIGHT. VITALS REMAINED STABLE. NO ACUTE CHANGES IN PT CONDITION NOTED. WILL CONTINUE TO MONITOR AND TREAT PER EMAR UNTIL HAND OFF TO DAY SHIFT.
--- NOTE | 2018-11-01 18:32 | NUR ---
SHIFT SUMMARY PT WORKED WITH PHYSICAL AND OCCUPATIONAL THERAPY THIS SHIFT. PT UP TO CHAIR FOR ALL MEALS. PT'S APPETITE BETTER IN THE AFTERNOON AND AND EVENING. NO COMPLAINTS OF PAIN. IV PATENT AND INFUSING W/O DIFFICULTY. CHEST XRAY THIS SHIFT AND WAITING FOR RESULTS. NO ACUTE CHANGES THIS SHIFT. CALL LIGHT IN REACH. WILL CONTINUE TO MONITOR AND REPORT TO ONCOMING RN.
--- NOTE | 2018-11-02 06:26 | NUR ---
SHIFT SUMMARY PT IS A 78 Y/O MALE, ADMITTED FOR SEPSIS. HE IS A&O X 2, OCCASIONALLY FORGETFUL/CONFUSED. NO COMPLAINTS OF PAIN, NAUSEA OR DYSPNEA. PT SLEPT WELL THROUGH THE NIGHT. VITALS REMAINED STABLE. NO ACUTE CHANGES IN PT CONDITION NOTED. WILL CONTINUE TO MONITOR AND TREAT PER EMAR UNTIL HAND OFF TO DAY SHIFT.
--- NOTE | 2018-11-02 14:49 | NUR ---
Patient is alert when I enter patient's room. I ask patient questions about what doctors are saying about him and he says that they don't know and I asked what the plan was for his next steps and he stated that he has no idea. I asked if his family has visited and he says that his and daughter visit him everyday. I asked patient if I could pray for him and he nods affirmingly. I gladly provide prayer and voices appreciation for the prayer and I depart. I will continue to remain available to patient and family.
--- NOTE | 2018-11-02 18:16 | NUR ---
SHIFT SUMMARY ELLIOTT GOT UP TO CHAIR FOR MEALS. AND DAUGHTER VISITED. WALKED WITH AO1 TO BR WITH WALKER. CHAIR ALARM AND BED ALARM ON THIS SHIFT. MENTALLY FUZZY, FORGETFUL, WHICH FAMILY SAYS HAS BEEN NORMAL. L POWERGLID C/D/I. INCONTINENT URINE THIS SHIFT AND ONE VERY SMALL BM (BLACK), INCONTINENT. SUCTIONS HIMSELF WITH YANKAUR. SLEEPY MOST OF THE SHIFT, LOW MOTIVATION, ONLY WANTS TO SLEEP. CALLED ONCOLOGY CONSULT, STILL AWAITING HIS ARRIVAL. DENIED PAIN. TOOK PILLS USING ASPIRATION PRECAUTIONS. CALL LIGHT IN REACH. [facility]
--- NOTE | 2018-11-03 04:49 | NUR ---
SHIFT SUMMARY PT HAS BEEN SLEEPING T/O SHIFT. PT HAS BEEN TURNED AND CHANGED ORDERED. PT HAD NO COMPLAINTS OR ISSUES NOTED. PT CURRENTLY SLEEPING AND BREATHING EASY.
[2018-11-03 05:15] LABS: BASOPHILS ABSOLUTE AUTO 0.03 K/mm3 (0.00-0.23); BASOPHILS PERCENT AUTO 1 % (0-2); EOSINOPHILS ABSOLUTE AUTO 0.15 K/mm3 (0.00-0.68); EOSINOPHILS PERCENT AUTO 3 % (0-6); Hematocrit 28.5 % (37.0-53.0); Hemoglobin 9.2 g/dL (13.5-17.5); IMMATURE GRAN ABSOLUTE AUTO 0.27 K/mm3 (0.00-0.10); IMMATURE GRAN PERCENT AUTO 5 % (0-1); LYMPHOCYTES ABSOLUTE AUTO 1.07 K/mm3 (0.84-5.20); LYMPHOCYTES PERCENT AUTO 21 % (21-46); MONOCYTES ABSOLUTE AUTO 0.46 K/mm3 (0.16-1.47); MONOCYTES PERCENT AUTO 9 % (4-13); Mean Corpuscular HGB 28.5 pg (26.0-34.0); Mean Corpuscular HGB Conc 32.3 g/dL (31.5-36.5); Mean Corpuscular Volume 88 fL (80-100); Mean Platelet Volume 10.3 fL (9.1-12.4); NEUTROPHILS ABSOLUTE AUTO 3.25 K/mm3 (1.96-9.15); NEUTROPHILS PERCENT AUTO 62 % (41-73); Platelet Count 203 K/mm3 (150-400); RDW Standard Deviation 50.4 fL (35.1-46.3); Red Blood Cell Count 3.23 M/mm3 (4.30-5.90); White Blood Cell Count 5.23 K/mm3 (4.00-11.30)
[2018-11-03 05:37] LABS: Albumin, Blood 2.3 g/dL (3.4-5.0); Anion Gap 5 mmol/L (6-16); Blood Urea Nitrogen 27 mg/dL (8-24); Bun/Creatinine Ratio 34.3 (12.0-20.0); CO2, Blood 29 mmol/L (21-32); Calcium, Blood 7.8 mg/dL (8.5-10.1); Chloride, Blood 109 mmol/L (98-108); Creatinine, Blood 0.79 mg/dL (0.60-1.20); Glomerular Filtration Rate >60 (60-); Glucose, Blood 81 mg/dL (70-99); Phosphorus, Blood 3.2 mg/dL (2.5-4.9); Sodium, Blood 143 mmol/L (136-145)
--- NOTE | 2018-11-03 18:22 | NUR ---
SHIFT SUMMARY ELLIOTT HAD FAMILY VISIT TODAY. WHEN FAMILY NOT PRESENT, HE DECLINES TO GET OOB OR EAT FOOD. WITH THEM PRESENT, HE ALLOWS US TO GET HIM UP TO CHAIR WITH AO1. INCONTINENT URINE AND STOOL. RED COCCYX, MEPILEX IN PLACE. L POWERGLIDE C/D/I. ASPIRATION PRECAUTIONS FOLLOWED. CONFUSED ON SITUATION AT TIMES, UNSURE IF IT IS DINNER OR BREAKFAST, ETC. CALL LIGHT IN REACH. [facility]CT[facility]
--- NOTE | 2018-11-04 04:28 | NUR ---
SHIFT SUMMARY PT HAD NO ISSUES NOTED DURING SHIFT. PT CHANGED AND REPOSITIONED FREQUENTLY. PT ABLE TO FOLLOW DIRECTION AND ANSWER QUESTIONS. PT SLEPT T/O SHIFT W/O COMPLAINT. PT CURRENTLY SLEEPING AND BREATHING EASY. CALL LIGHT IN REACH.
[2018-11-04 06:16] LABS: Hematocrit 29.1 % (37.0-53.0); Hemoglobin 9.3 g/dL (13.5-17.5)
[2018-11-04 06:34] LABS: Albumin, Blood 2.4 g/dL (3.4-5.0); Anion Gap 4 mmol/L (6-16); Blood Urea Nitrogen 29 mg/dL (8-24); Bun/Creatinine Ratio 39.5 (12.0-20.0); CO2, Blood 29 mmol/L (21-32); Calcium, Blood 7.8 mg/dL (8.5-10.1); Chloride, Blood 112 mmol/L (98-108); Creatinine, Blood 0.73 mg/dL (0.60-1.20); Glomerular Filtration Rate >60 (60-); Glucose, Blood 82 mg/dL (70-99); Phosphorus, Blood 2.8 mg/dL (2.5-4.9); Potassium, Blood 4.1 mmol/L (3.5-5.5); Sodium, Blood 145 mmol/L (136-145)
--- NOTE | 2018-11-04 09:40 | NUR ---
DR RAMIREZ REQUESTING THAT AFTERNOON ABX, ROCEPHIN AND ZITHROMAX BE GIVEN EARLY SHE PLANS ON DISCHARGING PT HOME, CHECK WITH PHARMACY AND OK TO HANG AT THIS TIME.
[2018-11-04] MEDS ORDERED: ASCO500 PO (12:56)
[2018-11-04] MEDS ORDERED: Colace100 MG PO (12:56)
[2018-11-04] MEDS ORDERED: FERSU300 PO (12:58)
[2018-11-04] MEDS ORDERED: PANT40 PO (12:59)
[2018-11-04] MEDS ORDERED: CODEINE-GUAIFE120 ML PO (13:00)
--- NOTE | 2018-11-04 16:35 | NUR ---
DISCHARGE DISCHARGE INSTRUCTIONS, MEDICATION LIST AND FOLLOW UP APPOINTMENTS REVIEWED WITH PT AND FAMILY, QUESTIONS/CONCERNS ANSWERED. PT AND FAMILY VERBALLY INDICATED UNDERSTANDING OF ALL INSTRUCTIONS RECEIVED. PT ESCORTED OUT BY DIRECTOR OF QUANTITATIVE RESEARCH VIA W/C
== END 2018-11-04 16:33 | disposition home health service (06) | DRG 871 ==
LOC: ER 11:37 → MEDS 15:03 → ENPENDDIS 11-04 11:10 → MEDS 11-04 16:33
PROVIDERS: Emergency Medicine; Internal Medicine; Internal Medicine Gastroenterology; ADMIT Internal Medicine
DX: A41.9 Sepsis, unspecified organism (principal); J18.9 Pneumonia, unspecified organism; C85.90 Non-Hodgkin lymphoma, unspecified, unspecified site; D62 Acute posthemorrhagic anemia; Z79.82 Long term (current) use of aspirin; Z86.73 Personal history of transient ischemic attack (TIA), and cerebral infarction without residual deficits; K21.9 Gastro-esophageal reflux disease without esophagitis; G96.8 Other specified disorders of central nervous system; Z90.79 Acquired absence of other genital organ(s); Z85.46 Personal history of malignant neoplasm of prostate; C88.0 Waldenstrom macroglobulinemia; E88.09 Other disorders of plasma-protein metabolism, not elsewhere classified; E86.0 Dehydration; R53.81 Other malaise
CPT/HCPCS: 36415; 36430; 51701; 71046; 80048; 80053; 80069; 81003; 82270; 82272; 82728; 83540; 83550; 83605; 83880; 85014; 85018; 85025; 85027; 86850; 86900; 86901; 86923; 87040; 87070; 87205; 92610; 93005; 93010; 96361; 96365; 96367; 97110; 97162; 97166; 97530; 97535; 99284-25; 99285-25; A9270; C1751; J0456; J0696; J2916; J7030; J7050; J7120; P9016

== ENCOUNTER 2019-02-12 13:32 | Emergency (ER) | payer MEDICARE, OTHER ==
[~2019-02-12] VITALS: Ht 182.9 cm; Wt 85.3 kg
[~2019-02-12 13:32] MED LIST changes: +ASCO500 PO; +CODEINE-GUAIFE120 ML PO; +Colace100 MG PO; +FERSU300 PO; +PANT40 PO
[2019-02-12] MEDS ORDERED: CLOBETTC TOP (13:48)
[2019-02-12 15:10] LABS: BASOPHILS ABSOLUTE AUTO 0.04 K/mm3 (0.00-0.23); BASOPHILS PERCENT AUTO 1 % (0-2); EOSINOPHILS ABSOLUTE AUTO 0.21 K/mm3 (0.00-0.68); EOSINOPHILS PERCENT AUTO 3 % (0-6); Hematocrit 37.3 % (37.0-53.0); Hemoglobin 11.9 g/dL (13.5-17.5); IMMATURE GRAN ABSOLUTE AUTO 0.02 K/mm3 (0.00-0.10); IMMATURE GRAN PERCENT AUTO 0 % (0-1); LYMPHOCYTES ABSOLUTE AUTO 0.77 K/mm3 (0.84-5.20); LYMPHOCYTES PERCENT AUTO 12 % (21-46); MONOCYTES PERCENT AUTO 12 % (4-13); Mean Corpuscular HGB 29.2 pg (26.0-34.0); Mean Corpuscular HGB Conc 31.9 g/dL (31.5-36.5); Mean Corpuscular Volume 92 fL (80-100); Mean Platelet Volume 10.9 fL (9.1-12.4); NEUTROPHILS PERCENT AUTO 72 % (41-73); Platelet Count 177 K/mm3 (150-400); RDW Coefficient Variation 15.1 % (11.7-14.2); RDW Standard Deviation 50.6 fL (35.1-46.3); Red Blood Cell Count 4.07 M/mm3 (4.30-5.90); White Blood Cell Count 6.64 K/mm3 (4.00-11.30)
[2019-02-12 15:31] LABS: Troponin I <0.015 ng/mL (0.000-0.040)
[2019-02-12 15:32] LABS: Alanine Aminotransfer (ALT/SGP 11 U/L (12-78); Albumin, Blood 2.7 g/dL (3.4-5.0); Alk Phos 78 U/L (50-136); Anion Gap 7 mmol/L (6-16); Aspartate Aminotrans (AST/SGOT 12 U/L (12-37); Bilirubin, Total 0.2 mg/dL (0.1-1.0); Blood Urea Nitrogen 15 mg/dL (8-24); Bun/Creatinine Ratio 21.1 (12.0-20.0); CO2, Blood 28 mmol/L (21-32); Calcium, Blood 8.2 mg/dL (8.5-10.1); Chloride, Blood 107 mmol/L (98-108); Creatinine, Blood 0.71 mg/dL (0.60-1.20); Globulin, Blood 2.8 g/dL (2.2-4.0); Glomerular Filtration Rate >60 (60-); Glucose, Blood 79 mg/dL (70-99); Potassium, Blood 3.7 mmol/L (3.5-5.5); Sodium, Blood 142 mmol/L (136-145); Total Protein, Blood 5.5 g/dL (6.4-8.2)
[2019-02-12] MEDS ORDERED: Norco 5-325 Ta1 EACH PO (16:14)
== END 2019-02-12 16:52 | disposition home or self-care (01) ==
LOC: ER 13:32
PROVIDERS: Emergency Medicine
DX: R07.9 Chest pain, unspecified (principal); M25.512 Pain in left shoulder; Z88.8 Allergy status to other drugs, medicaments and biological substances; Z88.0 Allergy status to penicillin; Z91.018 Allergy to other foods; Z79.899 Other long term (current) drug therapy; Z79.82 Long term (current) use of aspirin; K21.9 Gastro-esophageal reflux disease without esophagitis
CPT/HCPCS: 36415; 71046; 80053; 84484; 85025; 93005; 93010; 99284-25; A9270-GY

== ENCOUNTER 2019-04-14 07:42 | Emergency (ER) | payer MEDICARE, OTHER ==
[~2019-04-14] VITALS: Ht 182.9 cm; Wt 108.9 kg
[~2019-04-14 07:42] MED LIST changes: +CLOBETTC TOP; +Norco 5-325 Ta1 EACH PO
[2019-04-14 09:47] LABS: BASOPHILS ABSOLUTE AUTO 0.03 K/mm3 (0.00-0.23); BASOPHILS PERCENT AUTO 0 % (0-2); EOSINOPHILS ABSOLUTE AUTO 0.13 K/mm3 (0.00-0.68); EOSINOPHILS PERCENT AUTO 2 % (0-6); Hematocrit 34.5 % (37.0-53.0); Hemoglobin 11.1 g/dL (13.5-17.5); IMMATURE GRAN ABSOLUTE AUTO 0.03 K/mm3 (0.00-0.10); IMMATURE GRAN PERCENT AUTO 0 % (0-1); LYMPHOCYTES ABSOLUTE AUTO 0.79 K/mm3 (0.84-5.20); LYMPHOCYTES PERCENT AUTO 12 % (21-46); MONOCYTES ABSOLUTE AUTO 0.74 K/mm3 (0.16-1.47); MONOCYTES PERCENT AUTO 11 % (4-13); Mean Corpuscular HGB Conc 32.2 g/dL (31.5-36.5); Mean Corpuscular Volume 90 fL (80-100); Mean Platelet Volume 10.9 fL (9.1-12.4); NEUTROPHILS ABSOLUTE AUTO 4.95 K/mm3 (1.96-9.15); NEUTROPHILS PERCENT AUTO 74 % (41-73); Platelet Count 178 K/mm3 (150-400); RDW Coefficient Variation 14.8 % (11.7-14.2); RDW Standard Deviation 48.8 fL (35.1-46.3); Red Blood Cell Count 3.83 M/mm3 (4.30-5.90); White Blood Cell Count 6.67 K/mm3 (4.00-11.30)
[2019-04-14 09:59] LABS: Alanine Aminotransfer (ALT/SGP 11 U/L (12-78); Albumin, Blood 2.7 g/dL (3.4-5.0); Albumin/Globulin Ratio 0.9 (0.8-1.8); Alk Phos 78 U/L (50-136); Anion Gap 3 mmol/L (6-16); Aspartate Aminotrans (AST/SGOT 11 U/L (12-37); Bilirubin, Total 0.5 mg/dL (0.1-1.0); Blood Urea Nitrogen 21 mg/dL (8-24); Bun/Creatinine Ratio 27.7 (12.0-20.0); CO2, Blood 31 mmol/L (21-32); Calcium, Blood 8.6 mg/dL (8.5-10.1); Chloride, Blood 105 mmol/L (98-108); Creatinine, Blood 0.76 mg/dL (0.60-1.20); Glomerular Filtration Rate >60 (60-); Glucose, Blood 79 mg/dL (70-99); Potassium, Blood 3.7 mmol/L (3.5-5.5); Sodium, Blood 139 mmol/L (136-145); Total Protein, Blood 5.7 g/dL (6.4-8.2); Troponin I <0.015 ng/mL (0.000-0.040)
[2019-04-14] MEDS ORDERED: Nitrostat0.4 MG SL (11:45)
== END 2019-04-14 12:28 | disposition home or self-care (01) ==
LOC: ER 07:42
PROVIDERS: Emergency Medicine
DX: R07.9 Chest pain, unspecified (principal); F03.90 Unspecified dementia, unspecified severity, without behavioral disturbance, psychotic disturbance, mood disturbance, and anxiety; C88.0 Waldenstrom macroglobulinemia; K21.9 Gastro-esophageal reflux disease without esophagitis; F41.8 Other specified anxiety disorders; Z88.8 Allergy status to other drugs, medicaments and biological substances; Z88.0 Allergy status to penicillin; Z88.1 Allergy status to other antibiotic agents; Z91.018 Allergy to other foods; Z79.899 Other long term (current) drug therapy; Z79.82 Long term (current) use of aspirin
CPT/HCPCS: 36415; 71046; 80053; 83690; 84484; 85025; 93005; 93010; 93971; 96374; 99284-25; J2405; J7120

== ENCOUNTER 2019-04-14 18:46 | Emergency (ER) | payer MEDICARE, OTHER ==
[~2019-04-14] VITALS: Ht 180.3 cm; Wt 95.2 kg
[~2019-04-14 18:46] MED LIST changes: +Nitrostat0.4 MG SL
[2019-04-14 20:12] LABS: BASOPHILS ABSOLUTE AUTO 0.03 K/mm3 (0.00-0.23); BASOPHILS PERCENT AUTO 1 % (0-2); EOSINOPHILS ABSOLUTE AUTO 0.16 K/mm3 (0.00-0.68); EOSINOPHILS PERCENT AUTO 3 % (0-6); Hemoglobin 10.9 g/dL (13.5-17.5); IMMATURE GRAN ABSOLUTE AUTO 0.02 K/mm3 (0.00-0.10); IMMATURE GRAN PERCENT AUTO 0 % (0-1); LYMPHOCYTES ABSOLUTE AUTO 0.78 K/mm3 (0.84-5.20); LYMPHOCYTES PERCENT AUTO 14 % (21-46); MONOCYTES ABSOLUTE AUTO 0.76 K/mm3 (0.16-1.47); MONOCYTES PERCENT AUTO 14 % (4-13); Mean Corpuscular HGB 28.6 pg (26.0-34.0); Mean Corpuscular HGB Conc 31.1 g/dL (31.5-36.5); Mean Corpuscular Volume 92 fL (80-100); Mean Platelet Volume 10.8 fL (9.1-12.4); NEUTROPHILS ABSOLUTE AUTO 3.69 K/mm3 (1.96-9.15); NEUTROPHILS PERCENT AUTO 68 % (41-73); Platelet Count 184 K/mm3 (150-400); RDW Coefficient Variation 14.7 % (11.7-14.2); RDW Standard Deviation 49.5 fL (35.1-46.3); Red Blood Cell Count 3.81 M/mm3 (4.30-5.90); White Blood Cell Count 5.44 K/mm3 (4.00-11.30)
[2019-04-14 20:17] LABS: Alanine Aminotransfer (ALT/SGP 13 U/L (12-78); Albumin, Blood 2.7 g/dL (3.4-5.0); Albumin/Globulin Ratio 0.9 (0.8-1.8); Alk Phos 75 U/L (50-136); Anion Gap 3 mmol/L (6-16); Aspartate Aminotrans (AST/SGOT 14 U/L (12-37); Bilirubin, Total 0.3 mg/dL (0.1-1.0); Blood Urea Nitrogen 19 mg/dL (8-24); Bun/Creatinine Ratio 22.7 (12.0-20.0); CO2, Blood 29 mmol/L (21-32); Calcium, Blood 8.5 mg/dL (8.5-10.1); Chloride, Blood 107 mmol/L (98-108); Creatinine, Blood 0.84 mg/dL (0.60-1.20); Globulin, Blood 2.9 g/dL (2.2-4.0); Glomerular Filtration Rate >60 (60-); Glucose, Blood 106 mg/dL (70-99); Potassium, Blood 4.2 mmol/L (3.5-5.5); Sodium, Blood 139 mmol/L (136-145); Total Protein, Blood 5.6 g/dL (6.4-8.2)
== END 2019-04-14 22:03 | disposition home or self-care (01) ==
LOC: ER 18:46
PROVIDERS: Emergency Medicine
DX: S09.90XA Unspecified injury of head, initial encounter (principal); K21.9 Gastro-esophageal reflux disease without esophagitis; F32.9 Major depressive disorder, single episode, unspecified; F41.9 Anxiety disorder, unspecified; Z88.8 Allergy status to other drugs, medicaments and biological substances; Z88.0 Allergy status to penicillin; Z88.1 Allergy status to other antibiotic agents; Z91.018 Allergy to other foods; Z79.899 Other long term (current) drug therapy; Z79.82 Long term (current) use of aspirin; Z86.73 Personal history of transient ischemic attack (TIA), and cerebral infarction without residual deficits; W18.30XA Fall on same level, unspecified, initial encounter
CPT/HCPCS: 70450; 80053; 85025; 93005; 93010; 99284-25

== ENCOUNTER 2019-05-11 11:19 | Emergency (ER) | payer MEDICARE, OTHER ==
[~2019-05-11] VITALS: Ht 182.9 cm; Wt 83.9 kg
[2019-05-11] MEDS ORDERED: SACC250C (11:33)
[2019-05-11 13:11] LABS: Hematocrit 34.4 % (37.0-53.0); Hemoglobin 10.8 g/dL (13.5-17.5); Mean Corpuscular HGB 28.3 pg (26.0-34.0); Mean Corpuscular HGB Conc 31.4 g/dL (31.5-36.5); Mean Corpuscular Volume 90 fL (80-100); Mean Platelet Volume 10.7 fL (9.1-12.4); Platelet Count 189 K/mm3 (150-400); RDW Coefficient Variation 14.6 % (11.7-14.2); RDW Standard Deviation 48.5 fL (35.1-46.3); Red Blood Cell Count 3.81 M/mm3 (4.30-5.90); White Blood Cell Count 6.08 K/mm3 (4.00-11.30)
[2019-05-11 13:25] LABS: Source, Urine Catheter
[2019-05-11 13:29] LABS: Alanine Aminotransfer (ALT/SGP 14 U/L (12-78); Albumin, Blood 2.7 g/dL (3.4-5.0); Albumin/Globulin Ratio 0.9 (0.8-1.8); Alk Phos 71 U/L (50-136); Anion Gap 5 mmol/L (6-16); Aspartate Aminotrans (AST/SGOT 14 U/L (12-37); Bilirubin, Total 0.4 mg/dL (0.1-1.0); Blood Urea Nitrogen 25 mg/dL (8-24); Bun/Creatinine Ratio 24.3 (12.0-20.0); CO2, Blood 31 mmol/L (21-32); Calcium, Blood 8.5 mg/dL (8.5-10.1); Chloride, Blood 107 mmol/L (98-108); Creatinine, Blood 1.03 mg/dL (0.60-1.20); Glomerular Filtration Rate >60 (60-); Glucose, Blood 77 mg/dL (70-99); Potassium, Blood 3.7 mmol/L (3.5-5.5); Sodium, Blood 143 mmol/L (136-145); Total Protein, Blood 5.7 g/dL (6.4-8.2); Troponin I <0.015 ng/mL (0.000-0.040)
[2019-05-11 13:36] LABS: BASOPHILS PERCENT MAN 0 % (0-2); EOSINOPHILS ABSOLUTE MAN 0.24 K/mm3 (0.00-0.68); EOSINOPHILS PERCENT MAN 4 % (0-6); LYMPHOCYTES ABSOLUTE MAN 0.18 K/mm3 (0.84-5.20); LYMPHOCYTES PERCENT MAN 3 % (21-46); MONOCYTES PERCENT MAN 5 % (4-13); NEUTROPHILS ABSOLUTE MAN 5.35 K/mm3 (1.96-9.15); SEG NEUTROPHILS PERCENT MAN 88 % (41-73); TOTAL CELLS COUNTED 100
[2019-05-11 13:40] LABS: Bilirubin, Urine Neg (Neg); Blood, Urine 4+ (Neg); Glucose Qualitative, Urine Neg (Neg); Ketones, Urine Neg (Neg); Leukocyte Esterase, Urine 3+ (Neg); Nitrite, Urine Neg (Neg); Protein, Urine 2+ (Neg); Urobilinogen, Urine NORM (Normal)
[2019-05-11 13:47] LABS: Appearance, Urine Hazy (Clear); Color, Urine Yellow (P-Yellow)
[2019-05-11 13:52] LABS: Bacteria Few /hpf; Squamous Epithelial Cells Not Seen /hpf (Few); White Blood Cells, Urine 50-100 /hpf (0-5)
[2019-05-11] MEDS ORDERED: CEFP200 PO (14:16)
== END 2019-05-11 15:47 | disposition home or self-care (01) ==
LOC: ER 11:19
PROVIDERS: Physician Assistant
DX: N39.0 Urinary tract infection, site not specified (principal); K21.9 Gastro-esophageal reflux disease without esophagitis; G47.30 Sleep apnea, unspecified; Z88.8 Allergy status to other drugs, medicaments and biological substances; Z88.0 Allergy status to penicillin; Z88.1 Allergy status to other antibiotic agents; Z91.018 Allergy to other foods; Z79.899 Other long term (current) drug therapy; Z79.82 Long term (current) use of aspirin; W19.XXXA Unspecified fall, initial encounter
CPT/HCPCS: 36415; 51701; 70450; 71046; 72125; 80053; 81001; 84484; 85025; 87077; 87086; 87186; 93005; 93010; 96365-59; 99285-25; J0696

== ENCOUNTER 2019-07-02 01:49 | Day surgery (SDC) | payer MEDICARE, OTHER ==
[~2019-07-02 01:49] MED LIST changes: +CEFP200 PO; +Miralax17 GM PO; +Monurol3 GM PO; +SACC250C
[2019-07-02] MEDS ORDERED: ASPIR 8181 M1 PO (16:50)
== END 2019-07-02 17:25 | disposition home or self-care (01) ==
LOC: ATC 01:49
DX: N39.0 Urinary tract infection, site not specified (principal); I12.9 Hypertensive chronic kidney disease with stage 1 through stage 4 chronic kidney disease, or unspecified chronic kidney disease; N18.2 Chronic kidney disease, stage 2 (mild); D63.1 Anemia in chronic kidney disease; I25.10 Atherosclerotic heart disease of native coronary artery without angina pectoris; Z95.1 Presence of aortocoronary bypass graft; Z88.0 Allergy status to penicillin; Z88.1 Allergy status to other antibiotic agents
CPT/HCPCS: 96365; J3370

== ENCOUNTER 2019-07-05 00:30 | Day surgery (SDC) | payer MEDICARE, OTHER ==
[~2019-07-05 00:30] MED LIST changes: +ASPIR 8181 M1 PO; -SACC250C
[2019-07-07] MEDS ORDERED: Citalopram HBr20 MG PO (15:54)
[2019-07-07] MEDS ORDERED: Dexamethasone4 MG PO (15:54)
[2019-07-07] MEDS ORDERED: MIRALAX17 GM PO (15:55)
[2019-07-07] MEDS ORDERED: FERSU300 PO (15:56)
[2019-07-07] MEDS ORDERED: NITR.4SL SL (15:56)
[2019-07-07] MEDS ORDERED: THERA1 EACH PO (15:56)
[2019-07-07] MEDS ORDERED: ACET500 PO (15:58)
[2019-07-07] MEDS ORDERED: Magnesium Citr296 ML PO (16:48)
== END 2019-07-05 18:33 | disposition home or self-care (01) ==
LOC: ATC 00:30
DX: N39.0 Urinary tract infection, site not specified (principal); I12.9 Hypertensive chronic kidney disease with stage 1 through stage 4 chronic kidney disease, or unspecified chronic kidney disease; N18.9 Chronic kidney disease, unspecified; D63.1 Anemia in chronic kidney disease; Z88.1 Allergy status to other antibiotic agents; Z88.0 Allergy status to penicillin
CPT/HCPCS: 96365; J3370

== ENCOUNTER 2019-07-11 11:19 | Observation (INO) | payer MEDICARE, OTHER ==
[~2019-07-11] VITALS: Ht 182.9 cm; Wt 77.9 kg
[~2019-07-11 11:19] MED LIST changes: +ACET500 PO; +Citalopram HBr20 MG PO; +Dexamethasone4 MG PO; +MIRALAX17 GM PO; +Magnesium Citr296 ML PO; +NITR.4SL SL; +THERA1 EACH PO
[2019-07-11 11:48] LABS: BASOPHILS ABSOLUTE AUTO 0.03 K/mm3 (0.00-0.23); BASOPHILS PERCENT AUTO 0 % (0-2); EOSINOPHILS ABSOLUTE AUTO 0.01 K/mm3 (0.00-0.68); EOSINOPHILS PERCENT AUTO 0 % (0-6); Hematocrit 44.9 % (37.0-53.0); Hemoglobin 14.5 g/dL (13.5-17.5); IMMATURE GRAN ABSOLUTE AUTO 0.07 K/mm3 (0.00-0.10); IMMATURE GRAN PERCENT AUTO 1 % (0-1); LYMPHOCYTES ABSOLUTE AUTO 0.89 K/mm3 (0.84-5.20); LYMPHOCYTES PERCENT AUTO 11 % (21-46); MONOCYTES ABSOLUTE AUTO 0.65 K/mm3 (0.16-1.47); MONOCYTES PERCENT AUTO 8 % (4-13); Mean Corpuscular HGB 28.6 pg (26.0-34.0); Mean Corpuscular HGB Conc 32.3 g/dL (31.5-36.5); Mean Corpuscular Volume 89 fL (80-100); NEUTROPHILS ABSOLUTE AUTO 6.24 K/mm3 (1.96-9.15); NEUTROPHILS PERCENT AUTO 79 % (41-73); Platelet Count 177 K/mm3 (150-400); RDW Coefficient Variation 15.7 % (11.7-14.2); RDW Standard Deviation 50.6 fL (35.1-46.3); Red Blood Cell Count 5.07 M/mm3 (4.30-5.90); White Blood Cell Count 7.89 K/mm3 (4.00-11.30)
[2019-07-11 12:07] LABS: Alanine Aminotransfer (ALT/SGP 17 U/L (12-78); Albumin, Blood 3.4 g/dL (3.4-5.0); Albumin/Globulin Ratio 1.2 (0.8-1.8); Anion Gap 6 mmol/L (6-16); Aspartate Aminotrans (AST/SGOT 14 U/L (12-37); Bilirubin, Total 0.5 mg/dL (0.1-1.0); Blood Urea Nitrogen 24 mg/dL (8-24); Bun/Creatinine Ratio 28.3 (12.0-20.0); CO2, Blood 27 mmol/L (21-32); Calcium, Blood 8.8 mg/dL (8.5-10.1); Chloride, Blood 106 mmol/L (98-108); Creatinine, Blood 0.85 mg/dL (0.60-1.20); Globulin, Blood 2.8 g/dL (2.2-4.0); Glomerular Filtration Rate >60 (60-); Glucose, Blood 82 mg/dL (70-99); Potassium, Blood 3.7 mmol/L (3.5-5.5); Sodium, Blood 139 mmol/L (136-145); Total Protein, Blood 6.2 g/dL (6.4-8.2)
[2019-07-11 12:09] LABS: Alk Phos 87 U/L (50-136); Troponin I <0.015 ng/mL (0.000-0.040)
--- NOTE | 2019-07-11 19:23 | NUR ---
SHIFT SUMMARY PT A NEW ADMISSION FROM ED. FAMILY WAS ABLE TO ASSIST WITH ANSWERING QUESTIONS. PT HAS HAD NO COMPLAINTS OF CHEST PAIN OR SHORTNESS OF BREATH. IVF INFUSING WITHOUT DIFFICULTY. PT ORIENTED TO CALL LIGHT. NO ACUTE CHANGES AT THIS TIME. CALL LIGHT IN REACH AND REPORT GIVEN TO LUKAS PINK.
--- NOTE | 2019-07-12 | NUR ---
LABS/VENECIA: PATIENT IS REFUSING TROPONIN DRAW. PATIENT HAS A HISTORY OF VENECIA AND NON COMPLIANT WITH CPAP PER DAUGHTER. DR LEWIS WAS NOTIFED AND ORDER TO ADD ON TROPONIN TO AM LABS AND VENECIA PROTOCOL.
[2019-07-12 05:57] LABS: BASOPHILS ABSOLUTE AUTO 0.03 K/mm3 (0.00-0.23); BASOPHILS PERCENT AUTO 1 % (0-2); EOSINOPHILS ABSOLUTE AUTO 0.01 K/mm3 (0.00-0.68); EOSINOPHILS PERCENT AUTO 0 % (0-6); Hematocrit 38.2 % (37.0-53.0); Hemoglobin 12.2 g/dL (13.5-17.5); IMMATURE GRAN ABSOLUTE AUTO 0.08 K/mm3 (0.00-0.10); IMMATURE GRAN PERCENT AUTO 1 % (0-1); LYMPHOCYTES ABSOLUTE AUTO 0.94 K/mm3 (0.84-5.20); LYMPHOCYTES PERCENT AUTO 15 % (21-46); MONOCYTES ABSOLUTE AUTO 0.54 K/mm3 (0.16-1.47); MONOCYTES PERCENT AUTO 9 % (4-13); Mean Corpuscular HGB 28.1 pg (26.0-34.0); Mean Corpuscular HGB Conc 31.9 g/dL (31.5-36.5); Mean Corpuscular Volume 88 fL (80-100); NEUTROPHILS ABSOLUTE AUTO 4.63 K/mm3 (1.96-9.15); NEUTROPHILS PERCENT AUTO 74 % (41-73); Platelet Count 169 K/mm3 (150-400); RDW Coefficient Variation 15.3 % (11.7-14.2); Red Blood Cell Count 4.34 M/mm3 (4.30-5.90); White Blood Cell Count 6.23 K/mm3 (4.00-11.30)
[2019-07-12 06:19] LABS: Troponin I <0.015 ng/mL (0.000-0.040)
[2019-07-12 06:20] LABS: Alanine Aminotransfer (ALT/SGP 13 U/L (12-78); Albumin, Blood 2.5 g/dL (3.4-5.0); Albumin/Globulin Ratio 1.1 (0.8-1.8); Alk Phos 68 U/L (50-136); Anion Gap 5 mmol/L (6-16); Aspartate Aminotrans (AST/SGOT 10 U/L (12-37); Bilirubin, Total 0.4 mg/dL (0.1-1.0); Blood Urea Nitrogen 25 mg/dL (8-24); CO2, Blood 25 mmol/L (21-32); Calcium, Blood 8.1 mg/dL (8.5-10.1); Chloride, Blood 110 mmol/L (98-108); Creatinine, Blood 0.72 mg/dL (0.60-1.20); Globulin, Blood 2.2 g/dL (2.2-4.0); Glomerular Filtration Rate >60 (60-); Glucose, Blood 66 mg/dL (70-99); Sodium, Blood 140 mmol/L (136-145); Total Protein, Blood 4.7 g/dL (6.4-8.2)
--- NOTE | 2019-07-12 07:29 | NUR ---
SHIFT SUMMARY: PATIENT IS A&OX2 TO SELF AND PLACE. BP IS OBSEREVED TO BE ELEVATED AFTER INC. CARE. PATIENT REPORTS NO HEAD ACHE OR BLURRED VISION. PATIENT ALLOWS LAB TO DRAW THIS AM, TROPONIN IS NOW 0.015. INC. OF LARGE AMOUNTS OF URINE, PATIENT WAS ALSO UNABLE TO TOLERATE SCD'S. BED ALARM IS ON FOR SAFETY.
--- NOTE | 2019-07-12 11:44 | NUR ---
PT DCD HOME WITH . MED REC AND INSTRUCTIONS REVIEWED WITH PT AND . ALL QUESTIONS ANSWERED. IV REMOVED WITH NO ISSUE. SENIOR PAYROLL ADMINISTRATOR ASSISTED PT TO GET DRESSED. PACKED ALL PERSONAL BELONGINGS. PT AND ARE WAITING ON DAUGHTER TO RETURN TO ROOM TO DRIVE THEM HOME.
== END 2019-07-12 12:30 | disposition home or self-care (01) ==
LOC: ER 11:19 → ERHOLD 11:20 → MEDS 17:41
PROVIDERS: Emergency Medicine; Nurse Practitioner Acute Care; ADMIT Internal Medicine
DX: R07.9 Chest pain, unspecified (principal); C88.0 Waldenstrom macroglobulinemia; G93.89 Other specified disorders of brain; F32.9 Major depressive disorder, single episode, unspecified; F41.1 Generalized anxiety disorder; R79.89 Other specified abnormal findings of blood chemistry; K21.9 Gastro-esophageal reflux disease without esophagitis; Z86.73 Personal history of transient ischemic attack (TIA), and cerebral infarction without residual deficits; Z88.1 Allergy status to other antibiotic agents; Z88.0 Allergy status to penicillin; Z88.8 Allergy status to other drugs, medicaments and biological substances; Z91.018 Allergy to other foods; Z79.82 Long term (current) use of aspirin; Z79.899 Other long term (current) drug therapy
CPT/HCPCS: 36415; 71046; 80053; 83880; 84484; 85025; 93005; 93010; 96360; 96361; 99285-25; A9270-GY; J1650; J7030

== ENCOUNTER 2019-07-29 10:07 | Emergency (ER) | payer MEDICARE, OTHER ==
[~2019-07-29] VITALS: Ht 180.3 cm; Wt 81.7 kg
[2019-07-29 10:38] LABS: Source, Urine Catheter
[2019-07-29 10:43] LABS: Bilirubin, Urine Neg (Neg); Blood, Urine 5+ (Neg); Glucose Qualitative, Urine Neg (Neg); Ketones, Urine Neg (Neg); Leukocyte Esterase, Urine 3+ (Neg); Nitrite, Urine Neg (Neg); Protein, Urine 3+ (Neg); Urobilinogen, Urine NORM (Normal)
[2019-07-29 10:55] LABS: Appearance, Urine Cloudy (Clear); Color, Urine Pale Yellow (P-Yellow); White Blood Cells, Urine TNTC /hpf (0-5)
[2019-07-29 10:56] LABS: Bacteria Many /hpf; Squamous Epithelial Cells Rare /hpf (Few)
[2019-07-29 12:21] LABS: BASOPHILS ABSOLUTE AUTO 0.04 K/mm3 (0.00-0.23); BASOPHILS PERCENT AUTO 0 % (0-2); EOSINOPHILS ABSOLUTE AUTO 0.01 K/mm3 (0.00-0.68); EOSINOPHILS PERCENT AUTO 0 % (0-6); Hematocrit 45.3 % (37.0-53.0); Hemoglobin 14.3 g/dL (13.5-17.5); IMMATURE GRAN ABSOLUTE AUTO 0.24 K/mm3 (0.00-0.10); IMMATURE GRAN PERCENT AUTO 1 % (0-1); LYMPHOCYTES ABSOLUTE AUTO 0.63 K/mm3 (0.84-5.20); LYMPHOCYTES PERCENT AUTO 4 % (21-46); MONOCYTES PERCENT AUTO 4 % (4-13); Mean Corpuscular HGB 28.2 pg (26.0-34.0); Mean Corpuscular HGB Conc 31.6 g/dL (31.5-36.5); Mean Corpuscular Volume 89 fL (80-100); Mean Platelet Volume 11.1 fL (9.1-12.4); NEUTROPHILS ABSOLUTE AUTO 14.95 K/mm3 (1.96-9.15); NEUTROPHILS PERCENT AUTO 90 % (41-73); Platelet Count 201 K/mm3 (150-400); RDW Coefficient Variation 15.8 % (11.7-14.2); RDW Standard Deviation 51.8 fL (35.1-46.3); Red Blood Cell Count 5.07 M/mm3 (4.30-5.90); White Blood Cell Count 16.57 K/mm3 (4.00-11.30)
[2019-07-29 12:34] LABS: Anion Gap 7 mmol/L (6-16); Blood Urea Nitrogen 22 mg/dL (8-24); Bun/Creatinine Ratio 32.4 (12.0-20.0); CO2, Blood 28 mmol/L (21-32); Calcium, Blood 8.4 mg/dL (8.5-10.1); Chloride, Blood 105 mmol/L (98-108); Creatinine, Blood 0.68 mg/dL (0.60-1.20); Glomerular Filtration Rate >60 (60-); Glucose, Blood 71 mg/dL (70-99); Potassium, Blood 3.9 mmol/L (3.5-5.5); Sodium, Blood 140 mmol/L (136-145)
== END 2019-07-29 13:46 | disposition home or self-care (01) ==
LOC: ER 10:07
PROVIDERS: Emergency Medicine
DX: N39.0 Urinary tract infection, site not specified (principal); F41.9 Anxiety disorder, unspecified; K21.9 Gastro-esophageal reflux disease without esophagitis; Z88.0 Allergy status to penicillin; Z88.1 Allergy status to other antibiotic agents; Z91.018 Allergy to other foods; Z79.82 Long term (current) use of aspirin; F32.9 Major depressive disorder, single episode, unspecified; Z79.899 Other long term (current) drug therapy
CPT/HCPCS: 36415; 51702; 80048; 81001; 85025; 87077; 87086; 87186; 96365-59; 99283-25; J3370

== ENCOUNTER 2019-08-01 00:18 | Day surgery (SDC) | payer MEDICARE, OTHER | END 2019-08-01 15:56 | disposition home or self-care (01) | LOC: ATC 00:18 | DX: N13.6 Pyonephrosis (principal); K21.9 Gastro-esophageal reflux disease without esophagitis; F32.9 Major depressive disorder, single episode, unspecified; F41.9 Anxiety disorder, unspecified; Z88.0 Allergy status to penicillin; Z88.1 Allergy status to other antibiotic agents; Z88.8 Allergy status to other drugs, medicaments and biological substances; Z91.018 Allergy to other foods | CPT/HCPCS: 96365; J3370 ==

== ENCOUNTER → 2019-08-03 | Outpatient (CLI) | payer MEDICARE, OTHER | END | disposition home or self-care (01) | LOC: LAB 14:08 → LAB SHORT 14:08 | DX: R30.0 Dysuria (principal) | CPT/HCPCS: 87077; 87086; 87186 ==

== ENCOUNTER 2019-08-22 10:55 | Inpatient (IN) | payer MEDICARE, OTHER ==
[~2019-08-22] VITALS: Ht 182.9 cm; Wt 83.7 kg
[~2019-08-22 10:55] MED LIST changes: -ACET500 PO; -ASPIR 8181 M1 PO
[2019-08-22 12:28] LABS: Source, Urine Catheter
[2019-08-22 12:42] LABS: BASOPHILS ABSOLUTE AUTO 0.02 K/mm3 (0.00-0.23); BASOPHILS PERCENT AUTO 0 % (0-2); Bilirubin, Urine Neg (Neg); Blood, Urine 5+ (Neg); EOSINOPHILS ABSOLUTE AUTO 0.06 K/mm3 (0.00-0.68); EOSINOPHILS PERCENT AUTO 1 % (0-6); Glucose Qualitative, Urine Neg (Neg); Hemoglobin 13.7 g/dL (13.5-17.5); IMMATURE GRAN ABSOLUTE AUTO 0.13 K/mm3 (0.00-0.10); IMMATURE GRAN PERCENT AUTO 1 % (0-1); Ketones, Urine Neg (Neg); LYMPHOCYTES PERCENT AUTO 11 % (21-46); Leukocyte Esterase, Urine 3+ (Neg); MONOCYTES ABSOLUTE AUTO 0.86 K/mm3 (0.16-1.47); MONOCYTES PERCENT AUTO 10 % (4-13); Mean Corpuscular HGB 28.3 pg (26.0-34.0); Mean Corpuscular HGB Conc 31.1 g/dL (31.5-36.5); Mean Corpuscular Volume 91 fL (80-100); Mean Platelet Volume 10.9 fL (9.1-12.4); NEUTROPHILS ABSOLUTE AUTO 6.93 K/mm3 (1.96-9.15); NEUTROPHILS PERCENT AUTO 77 % (41-73); Nitrite, Urine Neg (Neg); Platelet Count 186 K/mm3 (150-400); Protein, Urine 3+ (Neg); RDW Coefficient Variation 16.2 % (11.7-14.2); RDW Standard Deviation 54.4 fL (35.1-46.3); Red Blood Cell Count 4.84 M/mm3 (4.30-5.90); Urobilinogen, Urine NORM (Normal); pH, Urine 6.5 (5.0-8.0)
[2019-08-22 12:48] LABS: Alanine Aminotransfer (ALT/SGP 16 U/L (12-78); Albumin, Blood 2.9 g/dL (3.4-5.0); Albumin/Globulin Ratio 1.1 (0.8-1.8); Alk Phos 66 U/L (50-136); Anion Gap 3 mmol/L (6-16); Aspartate Aminotrans (AST/SGOT 15 U/L (12-37); Bilirubin, Total 0.4 mg/dL (0.1-1.0); Blood Urea Nitrogen 27 mg/dL (8-24); Bun/Creatinine Ratio 36.5 (12.0-20.0); CO2, Blood 28 mmol/L (21-32); Calcium, Blood 8.1 mg/dL (8.5-10.1); Chloride, Blood 107 mmol/L (98-108); Creatinine, Blood 0.74 mg/dL (0.60-1.20); Globulin, Blood 2.7 g/dL (2.2-4.0); Glomerular Filtration Rate >60 (60-); Glucose, Blood 65 mg/dL (70-99); Potassium, Blood 4.1 mmol/L (3.5-5.5); Sodium, Blood 138 mmol/L (136-145); Total Protein, Blood 5.6 g/dL (6.4-8.2); Troponin I <0.015 ng/mL (0.000-0.040)
[2019-08-22 12:54] LABS: Appearance, Urine Cloudy (Clear); Color, Urine Yellow (P-Yellow)
[2019-08-22 13:02] LABS: Red Blood Cells, Urine TNTC /hpf (0-2); White Blood Cells, Urine TNTC /hpf (0-5)
[2019-08-22 13:03] LABS: Bacteria Mod /hpf; Squamous Epithelial Cells Not Seen /hpf (Few)
[2019-08-22] MEDS ORDERED: Aspirin EC81 MG PO (16:05)
[2019-08-22] MEDS ORDERED: Lomotil Tablet1 EACH PO (17:16)
[2019-08-22] MEDS ORDERED: SACC250C PO (17:40)
[2019-08-22] MEDS ORDERED: TUSSIN400 MG PO (17:49)
[2019-08-22] MEDS ORDERED: ACET325 PO (17:49)
[2019-08-22] MEDS ORDERED: LACT10SY PO (17:51)
[2019-08-23 04:59] LABS: BASOPHILS ABSOLUTE AUTO 0.03 K/mm3 (0.00-0.23); BASOPHILS PERCENT AUTO 0 % (0-2); EOSINOPHILS ABSOLUTE AUTO 0.08 K/mm3 (0.00-0.68); EOSINOPHILS PERCENT AUTO 1 % (0-6); Hematocrit 41.4 % (37.0-53.0); Hemoglobin 13.5 g/dL (13.5-17.5); IMMATURE GRAN ABSOLUTE AUTO 0.07 K/mm3 (0.00-0.10); IMMATURE GRAN PERCENT AUTO 1 % (0-1); LYMPHOCYTES ABSOLUTE AUTO 0.41 K/mm3 (0.84-5.20); LYMPHOCYTES PERCENT AUTO 6 % (21-46); MONOCYTES ABSOLUTE AUTO 0.63 K/mm3 (0.16-1.47); MONOCYTES PERCENT AUTO 9 % (4-13); Mean Corpuscular HGB 29.3 pg (26.0-34.0); Mean Corpuscular HGB Conc 32.6 g/dL (31.5-36.5); Mean Corpuscular Volume 90 fL (80-100); Mean Platelet Volume 10.4 fL (9.1-12.4); NEUTROPHILS ABSOLUTE AUTO 5.86 K/mm3 (1.96-9.15); NEUTROPHILS PERCENT AUTO 83 % (41-73); Platelet Count 167 K/mm3 (150-400); RDW Standard Deviation 53.4 fL (35.1-46.3); White Blood Cell Count 7.08 K/mm3 (4.00-11.30)
[2019-08-23 05:21] LABS: Anion Gap 4 mmol/L (6-16); Blood Urea Nitrogen 15 mg/dL (8-24); Bun/Creatinine Ratio 23.1 (12.0-20.0); CO2, Blood 28 mmol/L (21-32); Calcium, Blood 8.1 mg/dL (8.5-10.1); Chloride, Blood 107 mmol/L (98-108); Creatinine, Blood 0.65 mg/dL (0.60-1.20); Glomerular Filtration Rate >60 (60-); Glucose, Blood 74 mg/dL (70-99); Sodium, Blood 139 mmol/L (136-145)
--- NOTE | 2019-08-23 17:16 | NUR ---
PATIENT A/O TO SELF AND FAMILY ONLY. FLAT AFFECT THIS SHIFT, RESPONDS WITH WORDS ONLY. SPOKE WITH DAUGHTER CHRIS WHOM PATIENT LIVES WITH TODAY. SHE BROUGHT IN PATIENTS HOME MEDICATION AND STATED THAT PATIENT WAS ABLE TO WALK 2 DAYS AGO WITH FWW INDEPENDENTLY. PATIENT WAS UNABLE TO STAND THIS SHIFT AND WAS EVEN TOO WEAK TO SIT AT THE SIDE OF THE BED INDEPENDENTLY. WYLIE TO GRAVIY, YELLOW URINE WITH MUCOUS. KEFLEX RESTARTED. VSS, ON RA. INCONTINENT OF STOOL. TOLERATING REGULAR DIET AND WAS ABLE TO FEED HIMSELF. WILL LIKELY NEED SNF AT DISCHARGE.
--- NOTE | 2019-08-24 04:38 | NUR ---
SHIFT SUMMARY ADMITTED FOR WEAKNESS AND IMPAIRED MOBILITY. FULL CODE. LIVES WITH HIS AND DAUGHTER. HE IS VERY WITHDRAWN HERE. CHRONIC WYLIE IS IN PLACE, URINE HAS VISIBLE PUS. HE WAS INDEPENDENT W/FWW AT HOME. HE WAS SENT HERE FOR PROGRESSIVELY WORSENING WEAKNESS. HE IS INCONTINENT OF STOOL. WE ARE TURNING HIM Q 2 HRS HE WILL NOT REPOSITION HIMSELF. HE IS ON ROOM AIR, TAKES PILLS WHOLE WITH WATER. AFEBRILE HERE, FAMILY STATES HE HAD A FEVER AT HOME. 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 CARE MANAGEMENT CAN HOPEFULLY OFFER SOME ASSISTANCE WITH THIS CASE.
--- NOTE | 2019-08-24 19:22 | NUR ---
SHIFT SUMMARY: NO ACUTE CHANGES TO REPORT THIS SHIFT. PT A&O X2; WITHDRAWN; CALM AND COOPERATIVE WITH CARE. NO C/O PAIN THIS SHIFT. URINE CULTURE POSITIVE FOR PSEUDOMONAS; IV ABX CHANGED; PATIENT PULLED IV THIS SHIFT; AWAITING IV ACCESS. PT & OT FOLLOWING. REPORT GIVEN TO ONCOMING RN.
--- NOTE | 2019-08-24 21:44 | NUR ---
REPORT REICEVED FROM AM NURSE. UNSUCCESSFUL IV ACESS AFTER 2 TRIES BY DIFFERENT NURSES PER AM REPORT. ICU NURSE WAS CONTACTED DURING MY SHIFT WHO CAME TO PT'S ROOM AND TOOK A LOOK IN HOPES OF POWERGLIDE OR PICC LINE. PT HAS NO GOOD VEINS PER ICU NURSE. 2129 HOSPITALIST AHSAN NOTIFIED OF THIS SITUATION. SHE SAID SHE WILL LOOK INTO IT.
--- NOTE | 2019-08-25 03:49 | NUR ---
RAILROAD CAR REPAIR SUPERVISOR SUMMARY PT SLEPT WELL TONIGHT. VALERIA Robert ICU NURSE WAS ABLE TO SUCCESSFULLY INSERT POWERGLIDE IN PT'S R UPPER ARM. PT RECIEVED FIRST DOSE OF CEFTAZIDIME AT 2335. WYLIE PATENT AND DRAINING CLOUDY DARK JANE URINE. VSS. APPEARS WITHDRAWN WITH FLAT AFFECT. PT IS COOPERATIVE.
--- NOTE | 2019-08-25 12:48 | NUR ---
FAMILY REQUESTING DC HOME RATHER THAN SNF. PT FAMILY REQUESTING PT TO BE DC'ED HOME RATHER THAN AN TO A SNF. PT FAMILY STATES HE DOES NOT PARTICIPATE IN THERAPY UNLESS PT FAMILY IS THERE AND THEY WILL NOT BE ABLE TO COME INTO A SNF AT THIS TIME. DR. JOSÉ NOTIFIED OF PT FAMILY REQUEST. THIS RN SPOKE WITH JAMIL PEREZ.
--- NOTE | 2019-08-25 16:53 | NUR ---
SHIFT SUMMARY PT REFUSED BED BATH THIS SHIFT. PT WYLIE INTACT & DRAINING WELL. NO OTHER ACUTE CHANGES IN ASSESSMENT AT THIS TIME. VSS. WILL CONTINUE TO MONITOR UNTIL TURNOVER IS COMPLETE. PT FAMILY CALLED & UPDATED ON PT CONDITION THIS SHIFT.
--- NOTE | 2019-08-26 04:26 | NUR ---
SUMMARY PT HAD NO ISSUES NOTED. PT HAS SLEPT T/O SHIFT. PT CURRENTLY SLEEPING AND IN NO DISTRESS. CALL LIGHT IN REACH.
--- NOTE | 2019-08-26 15:09 | NUR ---
Initial spiritual care note: Mr. Alvarez was eotionally withdrawn with flat affect. He did not engage with me and denied needs. I will remain available.
--- NOTE | 2019-08-26 17:32 | NUR ---
SHIFT SUMMARY NO ACUTE CHANGES IN ASSESSMENT AT THIS TIME. NEW PG PLACED. PT REFUSED GETTING OUT OF BED AND REFUSED WORKING WITH PHYSICAL THERAPY THROUGHOUT THE DAY. WILL CONTINUE TO ENCOURAGE MOBILITY AND INDEPENDENCE. NO OTHER CHANGES IN ASSESSMENT AT THIS TIME. VSS. WILL CONTINUE TO MONITOR UNTIL TURNOVER IS COMPLETE.
--- NOTE | 2019-08-27 05:05 | NUR ---
SHIFT SUMMARY PT HAS HAD NO ACUTE CHANGES THIS SHIFT, NO C/O ANY KIND, REPOST Q2 FOR COMFORT, PT SLEEPING AT THIS TIME, CALL LIGHT IN REACH, WILL CONT TO MONITOR UNTIL REPORT GIVEN TO DAY RN.
--- NOTE | 2019-08-27 10:40 | NUR ---
INITIAL CONTACT PAL CARE: Reviewed EMR of pt familiar to me from many previous admits. Spoke to CM re: darin planning and spoke with Art shaffer, prior to my visit with pt. Case conferenced with RN after my visit and passed on daughter's concerns re: pt's PO fluid intake. Made visit to room. Pt awake, turned to right side away from windows, blinds closed and lights off. He is very quiet. Pt is [place]. He is familiar to me but I am unsure if he remembered me from prev visits/admissions. Pt appears much better nutritioned than when I saw him last. He has been living at home with his deena and . , Molly has some chronic illness and dementia. Art Shaffer, is his primary cg, confirmed by daughter this am. Jayesh has a very flat affect and answers quesitons with a nod, yes, no, with no other words volunteered. When asked if he is feeling discomfort, pain, distress, anxiety, nausea, MARSHALL, sore throat he shakes his head no, to each. I discussed his fluid intake with him and offered to bring him a beverage of his choice. Pt declined. Tried to get him to sip water at the bedside but he declined. Asked pt if he would like help with a change of position or if there was anything I could do for him or bring him while I was there and he said no. I encouraged pt to participate in therapy and care. I explained rationale for maintaining adequate fluid intake, especially with UTI, indwelling duckworth, hx of UTIs and bladder retention, homegoing and success in maintaining wellness at home. Reported on my visit and conversation with pt/deena to pt's RN afterwards. No f/u planned at this time. I am unsure if advanced care planning can be done with pt as he is not participatory and this is a long standing issue. Deena states they have an appointment with urologist to w/u retention issue in the hopes that pt can get rid of indwelling duckworth cath to decrease risk and incidence of UTI's. In the past, deena has had code status changed back to FULL CODE, even when pt has expressed desire to allow nature to take its course. Pt defers to deena for all decision making for himself and , Molly.
--- NOTE | 2019-08-27 18:19 | NUR ---
SHIFT SUMMARY PT AXO TO SELF AND PLACE. DIFFICULTY RECALLING FACTS INCLUDING HIS ADULT CHILDREN'S NAMES. AFFECT FLAT AND WITHDRAWN. [place]. REFUSED OOB DESPITE MULTIPLE ATTEMPTS FROM NURSE. PO INTAKE ENCOURAGED. PATIENT AMBULATED WITH PHYSICAL THERAPY, SEE NOTE. VSS. IV PATENT AND SALINE LOCKED AT THIS TIME. NO ACUTE CHANGES THIS SHIFT. BED IN LOW POSITION, CALL LIGHT WITHIN REACH.
--- NOTE | 2019-08-28 00:49 | NUR ---
Patient unwilling to work with staff this evening. Three attempts to talk him into taking his meds and allowing me to administer his IV antibiotics. He has even refused to allow an assessment, repositioning, etc. He lays in bed as if he is sleeping until he gets very annoyed, then he yells at staff to "get out". I tried to discuss his chronic UTI, and how we are trying to make that better and that that might make him stronger, but he wouldn't respond or allow it. He pushed me away from his bedside. I told patient i would not wake him again, but i would be checking on him regularly. Call light in place, bed low and locked and alarm activated for safety.
--- NOTE | 2019-08-28 18:39 | NUR ---
SHIFT SUMMARY PT UP WITH O.T. AND AMBULATED ABOUT IN ROOM WITH NO PROBLEM BUT WOULDN'T WAKE UP FOR P.T. REFUSED TO BE REPOSITIONED APPROX 1500. SPOKE WITH PT A SHORT TIME LATER AND GAVE HIM A TIME WE WOULD BE IN TO REPOSITION HIM. HE WAS COOPERATIVE AND APPROPRIATE AT THAT TIME WITH CARE. FEEDING SELF AND COOPERATIVE WITH MEDS AND CARE BESIDES ALREADY DESCRIBED INCIDENT. TENTATIVE PLAN TO DISCHARGE HOME TOMORROW.
--- NOTE | 2019-08-28 19:05 | NUR ---
ASSUMED CARE RECEIVED REPORT FROM APRYL BEVERLY. ASSUMED CARE OF PT. RESTING IN BED AT THIS TIME, NO S/S ACUTE DISTRESS NOTED. DENIES ANY NEEDS AT THIS TIME. CALL LIGHT, POSSESSIONS IN REACH, BED IN LOWEST POSITION WITH ALARM ON. WILL CONTINUE TO MONITOR.
--- NOTE | 2019-08-29 04:23 | NUR ---
SHIFT SUMMARY PT REMAINS ASLEEP AT THIS TIME, NO S/S ACUTE DISTRESS NOTED. NO ACUTE EVENTS NOTED T/O NIGHT. WAS MONITORED EVERY 1-2 HOURS WITH NEEDS MET, DENIES NEEDS AT THIS TIME. VS STABLE, AGREEABLE TO CARES. CALL LIGHT, POSSESSIONS IN REACH. BED IN LOWEST POSITION WITH ALARM ON. WILL CONTINUE TO MONITOR UNTIL DAY RN ASSUMES CARE.
--- NOTE | 2019-08-29 15:03 | NUR ---
DISCHARGE SUMMARY PT D/C BY W/C AND TAKEN TO DAUGHTER CHRIS TO TRANSPORT HOME, HOME MEDS AND PERSONAL BELONGINGS SENT WITH PT. OUMAR RAMOS D/C. DISCHARGE INTRUCTIONS PROVIDED AND PT HAD NO ADDITIONAL QUESTIONS. PERSCRIPTION FAXED TO [email or web address].
== END 2019-08-29 14:46 | disposition home health service (06) | DRG 699 ==
LOC: ER 10:55 → MEDS 10:56 → ENPENDDIS 08-29 10:00 → MEDS 08-29 14:46
PROVIDERS: Emergency Medicine; ADMIT Internal Medicine
DX: T83.518A Infection and inflammatory reaction due to other urinary catheter, initial encounter (principal); N39.0 Urinary tract infection, site not specified; B96.5 Pseudomonas (aeruginosa) (mallei) (pseudomallei) as the cause of diseases classified elsewhere; C88.0 Waldenstrom macroglobulinemia; I67.9 Cerebrovascular disease, unspecified; R54 Age-related physical debility; Z74.09 Other reduced mobility; F32.9 Major depressive disorder, single episode, unspecified; K21.9 Gastro-esophageal reflux disease without esophagitis; Z85.46 Personal history of malignant neoplasm of prostate; Z79.82 Long term (current) use of aspirin
CPT/HCPCS: 36415; 51702; 70450; 71045; 80048; 80053; 81001; 84145; 84484; 85025; 87040; 87077; 87086; 87186; 96360-59; 96361-59; 96372; 97110; 97112; 97116; 97163; 97166; 97530; 97535; 99285-25; A9270-GY; C1751; G0378; J0713; J1650; J7030; J7050; J7120

== ENCOUNTER 2019-09-04 11:21 | Emergency (ER) | payer MEDICARE, OTHER ==
[~2019-09-04] VITALS: Ht 182.9 cm; Wt 90.7 kg
[~2019-09-04 11:21] MED LIST changes: +ACET325 PO; +Aspirin EC81 MG PO; +LACT10SY PO; +TUSSIN400 MG PO
[2019-09-04 11:46] LABS: Source, Urine Catheter
[2019-09-04 11:55] LABS: Bilirubin, Urine Neg (Neg); Blood, Urine 5+ (Neg); Glucose Qualitative, Urine Neg (Neg); Ketones, Urine Neg (Neg); Leukocyte Esterase, Urine 3+ (Neg); Nitrite, Urine Pos (Neg); Protein, Urine 3+ (Neg); Specific Gravity, Urine 1.015 (1.003-1.022); Urobilinogen, Urine NORM (Normal)
[2019-09-04 12:09] LABS: Appearance, Urine Hazy (Clear); Color, Urine Yellow (P-Yellow)
[2019-09-04 12:10] LABS: Bacteria Many /hpf; Squamous Epithelial Cells Not Seen /hpf (Few); White Blood Cells, Urine TNTC /hpf (0-5)
[2019-09-04 12:11] LABS: Alanine Aminotransfer (ALT/SGP 18 U/L (12-78); Albumin, Blood 2.7 g/dL (3.4-5.0); Albumin/Globulin Ratio 1.1 (0.8-1.8); Alk Phos 53 U/L (50-136); Anion Gap 5 mmol/L (6-16); Aspartate Aminotrans (AST/SGOT 13 U/L (12-37); Bilirubin, Total 0.4 mg/dL (0.1-1.0); Blood Urea Nitrogen 25 mg/dL (8-24); Bun/Creatinine Ratio 37.2 (12.0-20.0); CO2, Blood 27 mmol/L (21-32); Chloride, Blood 109 mmol/L (98-108); Creatinine, Blood 0.67 mg/dL (0.60-1.20); Globulin, Blood 2.4 g/dL (2.2-4.0); Glomerular Filtration Rate >60 (60-); Glucose, Blood 75 mg/dL (70-99); Potassium, Blood 3.8 mmol/L (3.5-5.5); Sodium, Blood 141 mmol/L (136-145); Total Protein, Blood 5.1 g/dL (6.4-8.2)
--- NOTE | 2019-09-04 12:27 | NUR ---
ED Palliative Care Consult. Spoke with Dr Beckwith and discussed case. Pt came to ED with concerns of possible UTI. Family may benefit from conversation regarding goals for this visit. Pt has history of rcurrent UTI's with possible colonization. Pt has history of refusing care when admitted to the hospital. Called and spoke with Pt's daughter Art. Engaged in therapeutic conversation regarding goals for Pt's visit to ED. Art reports Pt was ambulating yesterday and then suddenly became weak today and had a slight increase in his body temperature. Art expresses concerns regarding a recurrence of his UTI. Discussed Pt's long history of UTI's and educated on the possibility of being colonized. Art is agreeable with sending Pt back home with oral antibiotics if appropriate. No other concerns reported at this time. Spoke with Dr Beckwith and relayed conversation. Dr Beckwith reports plan to discharge Pt home. Spoke with Pt in his ED room. Pt is A&OX1/2 but is agreeable with discharging back home. Palliative Care will remain available.
[2019-09-04 12:51] LABS: BASOPHILS ABSOLUTE AUTO 0.04 K/mm3 (0.00-0.23); BASOPHILS PERCENT AUTO 0 % (0-2); EOSINOPHILS ABSOLUTE AUTO 0.06 K/mm3 (0.00-0.68); EOSINOPHILS PERCENT AUTO 1 % (0-6); Hematocrit 38.5 % (37.0-53.0); Hemoglobin 12.6 g/dL (13.5-17.5); IMMATURE GRAN PERCENT AUTO 2 % (0-1); LYMPHOCYTES ABSOLUTE AUTO 0.71 K/mm3 (0.84-5.20); LYMPHOCYTES PERCENT AUTO 8 % (21-46); MONOCYTES ABSOLUTE AUTO 0.79 K/mm3 (0.16-1.47); MONOCYTES PERCENT AUTO 8 % (4-13); Mean Corpuscular HGB 29.6 pg (26.0-34.0); Mean Corpuscular HGB Conc 32.7 g/dL (31.5-36.5); Mean Corpuscular Volume 90 fL (80-100); Mean Platelet Volume 11.1 fL (9.1-12.4); NEUTROPHILS ABSOLUTE AUTO 7.61 K/mm3 (1.96-9.15); NEUTROPHILS PERCENT AUTO 81 % (41-73); Platelet Count 184 K/mm3 (150-400); RDW Coefficient Variation 15.9 % (11.7-14.2); RDW Standard Deviation 52.1 fL (35.1-46.3); Red Blood Cell Count 4.26 M/mm3 (4.30-5.90); White Blood Cell Count 9.41 K/mm3 (4.00-11.30)
== END 2019-09-04 14:35 | disposition home or self-care (01) ==
LOC: ER 11:21
PROVIDERS: Emergency Medicine
DX: R53.1 Weakness (principal); B96.5 Pseudomonas (aeruginosa) (mallei) (pseudomallei) as the cause of diseases classified elsewhere; F03.90 Unspecified dementia, unspecified severity, without behavioral disturbance, psychotic disturbance, mood disturbance, and anxiety; K21.9 Gastro-esophageal reflux disease without esophagitis; F32.9 Major depressive disorder, single episode, unspecified; F41.9 Anxiety disorder, unspecified; Z86.73 Personal history of transient ischemic attack (TIA), and cerebral infarction without residual deficits; Z88.0 Allergy status to penicillin; Z88.1 Allergy status to other antibiotic agents; Z91.018 Allergy to other foods; Z88.8 Allergy status to other drugs, medicaments and biological substances; Z79.899 Other long term (current) drug therapy; Z79.82 Long term (current) use of aspirin
CPT/HCPCS: 80053; 81001; 85025; 87077; 87086; 87186; 99285; J7030

== ENCOUNTER → 2019-09-19 | Outpatient (CLI) | payer MEDICARE, OTHER | END | disposition home or self-care (01) | DX: N39.0 Urinary tract infection, site not specified (principal) ==

== ENCOUNTER → 2019-10-06 | Outpatient (CLI) | payer MEDICARE, OTHER | END | disposition home or self-care (01) | LOC: LAB SHORT 15:00 → LAB 15:00 | DX: R30.0 Dysuria (principal); R36.9 Urethral discharge, unspecified | CPT/HCPCS: 87077; 87086; 87186 ==

== ENCOUNTER 2019-10-27 12:36 | Emergency (ER) | payer MEDICARE, OTHER ==
[~2019-10-27] VITALS: Ht 180.3 cm; Wt 86.2 kg
[2019-10-27 13:12] LABS: Hemoglobin 14.3 g/dL (13.5-17.5); Mean Corpuscular HGB 29.4 pg (26.0-34.0); Mean Corpuscular HGB Conc 31.8 g/dL (31.5-36.5); Mean Corpuscular Volume 93 fL (80-100); Mean Platelet Volume 10.9 fL (9.1-12.4); Platelet Count 228 K/mm3 (150-400); RDW Coefficient Variation 14.9 % (11.7-14.2); RDW Standard Deviation 51.4 fL (35.1-46.3); Red Blood Cell Count 4.86 M/mm3 (4.30-5.90); White Blood Cell Count 11.29 K/mm3 (4.00-11.30)
[2019-10-27 13:29] LABS: Alanine Aminotransfer (ALT/SGP 16 U/L (12-78); Albumin, Blood 2.9 g/dL (3.4-5.0); Albumin/Globulin Ratio 1.1 (0.8-1.8); Alk Phos 63 U/L (50-136); Anion Gap 5 mmol/L (6-16); Aspartate Aminotrans (AST/SGOT 27 U/L (12-37); Bilirubin, Total 0.6 mg/dL (0.1-1.0); Blood Urea Nitrogen 21 mg/dL (8-24); Bun/Creatinine Ratio 30.7 (12.0-20.0); CO2, Blood 27 mmol/L (21-32); Chloride, Blood 106 mmol/L (98-108); Creatinine, Blood 0.68 mg/dL (0.60-1.20); Globulin, Blood 2.7 g/dL (2.2-4.0); Glomerular Filtration Rate >60 (60-); Glucose, Blood 119 mg/dL (70-99); Potassium, Blood 4.5 mmol/L (3.5-5.5); Sodium, Blood 138 mmol/L (136-145); Total Protein, Blood 5.6 g/dL (6.4-8.2)
[2019-10-27 13:42] LABS: BASOPHILS ABSOLUTE MAN 0.11 K/mm3 (0.00-0.23); BASOPHILS PERCENT MAN 1 % (0-2); EOSINOPHILS PERCENT MAN 0 % (0-6); LYMPHOCYTES % ATYPICAL MANUAL 1 % (0-0); LYMPHOCYTES ABSOLUTE MAN 0.79 K/mm3 (0.84-5.20); LYMPHOCYTES PERCENT MAN 6 % (21-46); MONOCYTES ABSOLUTE MAN 0.79 K/mm3 (0.16-1.47); MONOCYTES PERCENT MAN 7 % (4-13); MYELOCYTE ABSOLUTE MAN 0.11 K/mm3 (0.00-0.00); MYELOCYTE PERCENT MAN 1 % (0-0); NEUTROPHILS ABSOLUTE MAN 9.48 K/mm3 (1.96-9.15); SEG NEUTROPHILS PERCENT MAN 84 % (41-73); TOTAL CELLS COUNTED 100
[2019-10-27] MEDS ORDERED: ASCO500 PO (13:47)
[2019-10-27] MEDS ORDERED: PROBIOTIC1 EAC7 PO (13:48)
[2019-10-27] MEDS ORDERED: CITA20 PO (13:48)
[2019-10-27] MEDS ORDERED: LOPE2C (13:50)
[2019-10-27] MEDS ORDERED: CEPH500 (13:51)
== END 2019-10-27 15:17 | disposition home or self-care (01) ==
LOC: ER 12:36
PROVIDERS: Physician Assistant
DX: I77.6 Arteritis, unspecified (principal); F32.9 Major depressive disorder, single episode, unspecified; F41.9 Anxiety disorder, unspecified; K21.9 Gastro-esophageal reflux disease without esophagitis; Z88.0 Allergy status to penicillin; Z88.1 Allergy status to other antibiotic agents; Z88.8 Allergy status to other drugs, medicaments and biological substances; Z91.018 Allergy to other foods; Z79.899 Other long term (current) drug therapy; Z79.82 Long term (current) use of aspirin
CPT/HCPCS: 36415; 80053; 83605; 85025; 99283

== ENCOUNTER → 2019-12-20 | Outpatient (CLI) | payer MEDICARE, OTHER ==
[~2019-12-20] MED LIST changes: +BISA10S PR; +CALCIUM CARBON500 M1 PO; +CEPH500; +CO Q10100 MG PO; +DIPATR PO; +Klor-Con 1010 MEQ PO; +LOPE2C; +MIACALCIN200 UNIT/1; +Milk Of Ma400 MG/5 M PO; +ONDA4 PO; +PROBIOTIC1 EAC7 PO; +VISBIOME PO
[2019-12-20 19:40] LABS: Alanine Aminotransfer (ALT/SGP 14 U/L (12-78); Albumin, Blood 2.5 g/dL (3.4-5.0); Alk Phos 55 U/L (50-136); Anion Gap 8 mmol/L (6-16); Aspartate Aminotrans (AST/SGOT 14 U/L (12-37); Bilirubin, Total 0.2 mg/dL (0.1-1.0); Blood Urea Nitrogen 25 mg/dL (8-24); Bun/Creatinine Ratio 51.9 (12.0-20.0); CO2, Blood 25 mmol/L (21-32); Chloride, Blood 106 mmol/L (98-108); Creatinine, Blood 0.48 mg/dL (0.60-1.20); Globulin, Blood 2.5 g/dL (2.2-4.0); Glomerular Filtration Rate >60 (60-); Glucose, Blood 189 mg/dL (70-99); Potassium, Blood 3.8 mmol/L (3.5-5.5); Sodium, Blood 139 mmol/L (136-145)
== END ==
LOC: LAB 18:52 → LAB SHORT 18:52
PROVIDERS: Specialist
DX: C85.89 Other specified types of non-Hodgkin lymphoma, extranodal and solid organ sites (principal)
CPT/HCPCS: 80053

== ENCOUNTER → 2019-12-30 | Outpatient (CLI) | payer MEDICARE, OTHER | END | disposition home or self-care (01) | LOC: LAB 19:13 → LAB SHORT 19:13 | DX: N39.0 Urinary tract infection, site not specified (principal) | CPT/HCPCS: 87086 ==

== ENCOUNTER 2020-06-14 11:23 | Inpatient (IN) | payer MEDICARE, OTHER ==
[~2020-06-14] VITALS: Ht 180.3 cm; Wt 99.8 kg
[~2020-06-14 11:23] MED LIST changes: +MULVITA PO; -THERA1 EACH PO
[2020-06-14 12:24] LABS: BASOPHILS PERCENT AUTO 1 % (0-2); EOSINOPHILS ABSOLUTE AUTO 0.03 K/mm3 (0.00-0.68); EOSINOPHILS PERCENT AUTO 0 % (0-6); Hematocrit 46.7 % (37.0-53.0); IMMATURE GRAN ABSOLUTE AUTO 0.45 K/mm3 (0.00-0.10); IMMATURE GRAN PERCENT AUTO 4 % (0-1); LYMPHOCYTES ABSOLUTE AUTO 0.98 K/mm3 (0.84-5.20); LYMPHOCYTES PERCENT AUTO 8 % (21-46); MONOCYTES ABSOLUTE AUTO 1.01 K/mm3 (0.16-1.47); MONOCYTES PERCENT AUTO 8 % (4-13); Mean Corpuscular HGB 29.8 pg (26.0-34.0); Mean Corpuscular HGB Conc 32.1 g/dL (31.5-36.5); Mean Corpuscular Volume 93 fL (80-100); Mean Platelet Volume 11.1 fL (9.1-12.4); NEUTROPHILS ABSOLUTE AUTO 9.48 K/mm3 (1.96-9.15); NEUTROPHILS PERCENT AUTO 79 % (41-73); Platelet Count 185 K/mm3 (150-400); RDW Coefficient Variation 15.3 % (11.7-14.2); RDW Standard Deviation 51.9 fL (35.1-46.3); Red Blood Cell Count 5.03 M/mm3 (4.30-5.90); White Blood Cell Count 12.05 K/mm3 (4.00-11.30)
[2020-06-14 12:43] LABS: Alanine Aminotransfer (ALT/SGP 17 U/L (12-78); Alk Phos 70 U/L (50-136); Anion Gap 6 mmol/L (6-16); Aspartate Aminotrans (AST/SGOT 10 U/L (12-37); Bilirubin, Total 0.6 mg/dL (0.1-1.0); Blood Urea Nitrogen 22 mg/dL (8-24); Bun/Creatinine Ratio 28.3 (12.0-20.0); CO2, Blood 27 mmol/L (21-32); Calcium, Blood 8.2 mg/dL (8.5-10.1); Chloride, Blood 107 mmol/L (98-108); Creatinine, Blood 0.78 mg/dL (0.60-1.20); Globulin, Blood 3.1 g/dL (2.2-4.0); Glomerular Filtration Rate >60 (60-); Glucose, Blood 86 mg/dL (70-99); Potassium, Blood 3.8 mmol/L (3.5-5.5); Sodium, Blood 140 mmol/L (136-145); Total Protein, Blood 6.1 g/dL (6.4-8.2)
[2020-06-14 16:01] LABS: Source, Urine Clean Catch
[2020-06-14 16:12] LABS: Bilirubin, Urine Neg (Neg); Blood, Urine 3+ (Neg); Color, Urine Yellow (P-Yellow); Glucose Qualitative, Urine Neg (Neg); Ketones, Urine Neg (Neg); Leukocyte Esterase, Urine 1+ (Neg); Nitrite, Urine Neg (Neg); Protein, Urine 2+ (Neg); Urobilinogen, Urine NORM (Normal)
[2020-06-14] MEDS ORDERED: COQ-10100 MG PO (16:20)
[2020-06-14] MEDS ORDERED: IMBRUVICA420 MG PO (16:21)
[2020-06-14] MEDS ORDERED: Vitamin D2000 UNIT PO (16:21)
[2020-06-14 16:22] LABS: Appearance, Urine Hazy (Clear)
[2020-06-14 16:24] LABS: Bacteria Few /hpf; Squamous Epithelial Cells Few /hpf (Few)
[2020-06-14 16:25] LABS: Mucus Light (0-Heavy)
[2020-06-14 18:36] LABS: Influenza A, PCR NEGATIVE (NEGATIVE); Influenza B, PCR NEGATIVE (NEGATIVE); Resp Syncytial Virus, PCR NEGATIVE (NEGATIVE); SARS-Cov-2 (COVID-19) PCR, MMC NEGATIVE (NEGATIVE)
[2020-06-14] MEDS ORDERED: FURO40 PO (21:41)
[2020-06-14] MEDS ORDERED: UBID10 PO (21:42)
--- NOTE | 2020-06-15 04:44 | NUR ---
SHIFT SUMMARY NEW ADMIT THIS SHIFT W/ DX OF UTI, PREVIOUS HX OF RECENT URETHRAL STENTS, HX PROVIDED BY PATIENT'S DAUGHTER DUE TO NEW ONSET CONFUSION, PT HAS BEEN REFUSING ORDERED MEDICATIONS EXCEPT FLUIDS, PT REFUSED MORNING LAB BLOOD DRAW, WILL PASS ON TO DAY RN TO SEE IF THE PT'S DAUGHTER CAN ASSIST W/ ENCOURAGING COMPLIANCE. PT HAS NOT BEEN UP SINCE ARRIVAL, USES FWW AT BASELINE, ARRIVED W/ ATTENDS ON, PROVIDED CLEAN/DRY ATTENDS DURING ADMIT, WILL CHECK/CHANGE PRN. CALL LIGHT IN REACH, WILL CONTINUE TO MONITOR AND REPORT TO ONCOMING DAY RN.
--- NOTE | 2020-06-15 15:41 | NUR ---
SUMMARY PT IS WEAK/FATIGUED, FLAT AFFECT, VERY [place], A/O X1-2. HE IS SOMEWHAT DEFENSIVE DURING ASSESSMENTS, DOES NOT OFFER MUCH VERBAL, ANSWERS MANY QUESTIONS w "I DON'T KNOW". HE ASKED IF HE IS COMFORTABLE STATES COMFORT "I GUESS", NO S/S PAIN. DX UTI, IVPB ROCEPHIN CONTINUES. UNDELYING NONHODGEKINS LYMPHOMA, HIS DAUGHTER BROUGHT IN [place] MED IMBRUVICA, GIVEN. DX AMS, AMMONIA ELEVATED SOMEWHAT @ 40, LACTULOSE GIVEN THIS AM, HE HAS HAD TWO LRG SOFT STOOLS TODAY. INCONT OF BOWEL & URINE, IN ATTENDS. HE HAS DECLINED OOB TODAY, DECLINED PHYTHER. VSS, AFEBRILE.
--- NOTE | 2020-06-16 04:37 | NUR ---
SHIFT SUMMARY- PT. A&OX1, CONFUSED, ON BEDREST T/O THE SHIFT. INCONT, ATTENDS IN PLACE AND REPOSITONED FOR COMFORT/PRN. PT. DENIED C/O PAIN OR DISCOMFORT DURING THE NIGHT. TOLERATED ABX IV ROCEPHIN WELL. PT. HAD 2 SMALL PASTY/SOFT BM'S, ON LACTULOSE. RESTED QUIETLY T/O THE NIGHT, NO APPARENT DISTRESS NOTED. VSS. CALL LIGHT WITHIN REACH, SIDE RAILS UPX2, AND BED ALARM ON FOR SAFETY. WILL CONT TO MONITOR.
[2020-06-16 05:43] LABS: BASOPHILS ABSOLUTE AUTO 0.03 K/mm3 (0.00-0.23); BASOPHILS PERCENT AUTO 0 % (0-2); EOSINOPHILS ABSOLUTE AUTO 0.02 K/mm3 (0.00-0.68); EOSINOPHILS PERCENT AUTO 0 % (0-6); Hematocrit 41.1 % (37.0-53.0); IMMATURE GRAN ABSOLUTE AUTO 0.21 K/mm3 (0.00-0.10); IMMATURE GRAN PERCENT AUTO 3 % (0-1); LYMPHOCYTES ABSOLUTE AUTO 0.68 K/mm3 (0.84-5.20); LYMPHOCYTES PERCENT AUTO 9 % (21-46); MONOCYTES ABSOLUTE AUTO 0.66 K/mm3 (0.16-1.47); MONOCYTES PERCENT AUTO 9 % (4-13); Mean Corpuscular HGB 29.3 pg (26.0-34.0); Mean Corpuscular HGB Conc 31.6 g/dL (31.5-36.5); Mean Corpuscular Volume 93 fL (80-100); NEUTROPHILS ABSOLUTE AUTO 5.99 K/mm3 (1.96-9.15); NEUTROPHILS PERCENT AUTO 79 % (41-73); Platelet Count 149 K/mm3 (150-400); RDW Coefficient Variation 14.7 % (11.7-14.2); RDW Standard Deviation 50.6 fL (35.1-46.3); Red Blood Cell Count 4.43 M/mm3 (4.30-5.90); White Blood Cell Count 7.59 K/mm3 (4.00-11.30)
[2020-06-16 06:00] LABS: Albumin, Blood 2.4 g/dL (3.4-5.0); Anion Gap 6 mmol/L (6-16); Blood Urea Nitrogen 18 mg/dL (8-24); Bun/Creatinine Ratio 24.2 (12.0-20.0); CO2, Blood 27 mmol/L (21-32); Calcium, Blood 8.1 mg/dL (8.5-10.1); Chloride, Blood 110 mmol/L (98-108); Creatinine, Blood 0.75 mg/dL (0.60-1.20); Glomerular Filtration Rate >60 (60-); Glucose, Blood 94 mg/dL (70-99); Phosphorus, Blood 2.8 mg/dL (2.5-4.9); Potassium, Blood 3.7 mmol/L (3.5-5.5); Sodium, Blood 143 mmol/L (136-145)
[2020-06-16 10:29] LABS: Free Thyroxine 1.22 ng/dL (0.70-1.60); Thyroid Stimulating Hormone 0.988 uIU/mL (0.360-4.800)
[2020-06-16] MEDS ORDERED: Enulose10 GM/15 M PO (11:59)
[2020-06-16] MEDS ORDERED: Acetaminophen325 M1 PO (12:01)
--- NOTE | 2020-06-16 13:45 | NUR ---
DISCHARGE DR PERAZA IN TO SEE PT THIS AM, STATE BLOOD CX NEGATIVE, PT MAY GO HOME TODAY AFTER PHYTHER. PHYTHER ATTEMPT EVAL/TX HOWEVER PT AGAIN REFUSED. COMMUNICATE w PT'S DAUGHTER WHO IS CAREGIVER @ HOME. DAUGHTER STATE THIS IS PT NORM. HOMEHEALTH IS ORDERED & WILL FOLLOW @ HOME IF NECESSARY. NEW SCRIPTS FAXED TO [employer]/DAUGHTER. IV D/C INTACT. F/U APPT ARRANGED w DR BALLARD. DAUGHTER WILL BE IN LATER THIS AFTERNOON FOR TRANSPORT HOME, WILL REVIEW D/C INSTRUCT @ THAT TIME.
--- NOTE | 2020-06-16 16:28 | NUR ---
PT DAUGHTER HERE FOR TRANSPORT HOME, D/C INSTRUCT REVIEWED. PT ASSISTED TO DRESS. W/C ESCORT FROM HOSP PROVIDED. THEY EXPRESS SATISFACTION.
[2020-08-21] MEDS ORDERED: NITR.4SL SL (22:19)
== END 2020-06-16 15:38 | disposition home health service (06) | DRG 698 ==
LOC: ER 11:23 → MEDS 19:36
PROVIDERS: Emergency Medicine; Internal Medicine; ADMIT Family Medicine
DX: T83.592A Infection and inflammatory reaction due to indwelling ureteral stent, initial encounter (principal); G92 Toxic encephalopathy; N13.6 Pyonephrosis; C85.90 Non-Hodgkin lymphoma, unspecified, unspecified site; E72.20 Disorder of urea cycle metabolism, unspecified; Z20.822 Contact with and (suspected) exposure to COVID-19; C88.0 Waldenstrom macroglobulinemia; F32.9 Major depressive disorder, single episode, unspecified; F41.9 Anxiety disorder, unspecified; K21.9 Gastro-esophageal reflux disease without esophagitis; K59.00 Constipation, unspecified; Z85.46 Personal history of malignant neoplasm of prostate; Z86.73 Personal history of transient ischemic attack (TIA), and cerebral infarction without residual deficits
CPT/HCPCS: 0241U; 36415; 51702; 70450; 71046; 74176; 80053; 80069; 81001; 82140; 82607; 82728; 82746; 83540; 83550; 83735; 84439; 84443; 85025; 87086; 96365-59; 97110; 97116; 99285-25; A9270; J0696; J7120

== ENCOUNTER → 2020-07-26 | Outpatient (CLI) | payer MEDICARE, OTHER ==
[~2020-07-26] MED LIST changes: +Acetaminophen325 M1 PO; +BANATROL PLUS1 EAC1 PO; +BUME2 PO; +CEFU500T30 PO; +COQ-10100 MG PO; +Enulose10 GM/15 M PO; +GUAI600T33; +LIQUACEL PO; +METO2.5 PO; +MIRALAX17 G3; +NORVASC5 MG PO; +UBID10 PO; +Vitamin D2000 UNIT PO
== END ==
LOC: LAB 13:30 → LAB SHORT 13:30
DX: L08.9 Local infection of the skin and subcutaneous tissue, unspecified (principal)
CPT/HCPCS: 87070; 87075; 87077; 87147; 87186; 87205

== ENCOUNTER 2020-08-21 21:58 | Emergency (ER) | payer MEDICARE, OTHER ==
[~2020-08-21] VITALS: Ht 180.3 cm; Wt 99.8 kg
[~2020-08-21 21:58] MED LIST changes: -BANATROL PLUS1 EAC1 PO; -BUME2 PO; -CEFU500T30 PO; -GUAI600T33; -LIQUACEL PO; -METO2.5 PO; -MIRALAX17 G3; -MULVITA PO; -NORVASC5 MG PO; +THERA1 EACH PO
[2020-08-21] MEDS ORDERED: POTCHL20ER PO (22:18)
[2020-08-21] MEDS ORDERED: BUME2 PO (22:18)
[2020-08-21] MEDS ORDERED: NITR.4SL (22:19)
[2020-08-21] MEDS ORDERED: GUAI600T33 (22:20)
[2020-08-21] MEDS ORDERED: MIRALAX17 G3 (22:20)
[2020-08-21 23:12] LABS: BASOPHILS ABSOLUTE AUTO 0.06 K/mm3 (0.00-0.23); BASOPHILS PERCENT AUTO 1 % (0-2); EOSINOPHILS PERCENT AUTO 0 % (0-6); Hematocrit 40.5 % (37.0-53.0); Hemoglobin 13.5 g/dL (13.5-17.5); IMMATURE GRAN ABSOLUTE AUTO 0.36 K/mm3 (0.00-0.10); IMMATURE GRAN PERCENT AUTO 5 % (0-1); LYMPHOCYTES ABSOLUTE AUTO 0.63 K/mm3 (0.84-5.20); LYMPHOCYTES PERCENT AUTO 8 % (21-46); MONOCYTES ABSOLUTE AUTO 0.85 K/mm3 (0.16-1.47); MONOCYTES PERCENT AUTO 11 % (4-13); Mean Corpuscular HGB 30.5 pg (26.0-34.0); Mean Corpuscular HGB Conc 33.3 g/dL (31.5-36.5); Mean Corpuscular Volume 91 fL (80-100); Mean Platelet Volume 10.9 fL (9.1-12.4); NEUTROPHILS ABSOLUTE AUTO 6.05 K/mm3 (1.96-9.15); NEUTROPHILS PERCENT AUTO 76 % (41-73); Platelet Count 180 K/mm3 (150-400); RDW Coefficient Variation 15.2 % (11.7-14.2); RDW Standard Deviation 51.1 fL (35.1-46.3); Red Blood Cell Count 4.43 M/mm3 (4.30-5.90); White Blood Cell Count 7.95 K/mm3 (4.00-11.30)
[2020-08-21 23:30] LABS: Alanine Aminotransfer (ALT/SGP 13 U/L (12-78); Albumin, Blood 2.7 g/dL (3.4-5.0); Albumin/Globulin Ratio 1.1 (0.8-1.8); Alk Phos 58 U/L (50-136); Anion Gap 6 mmol/L (6-16); Aspartate Aminotrans (AST/SGOT 6 U/L (12-37); Bilirubin, Total 0.3 mg/dL (0.1-1.0); Blood Urea Nitrogen 26 mg/dL (8-24); Bun/Creatinine Ratio 29.3 (12.0-20.0); CO2, Blood 31 mmol/L (21-32); Calcium, Blood 8.2 mg/dL (8.5-10.1); Chloride, Blood 106 mmol/L (98-108); Creatinine, Blood 0.89 mg/dL (0.60-1.20); Globulin, Blood 2.4 g/dL (2.2-4.0); Glomerular Filtration Rate >60 (60-); Glucose, Blood 162 mg/dL (70-99); Potassium, Blood 3.5 mmol/L (3.5-5.5); Sodium, Blood 143 mmol/L (136-145); Total Protein, Blood 5.1 g/dL (6.4-8.2); Troponin I <0.015 ng/mL (0.000-0.040)
[2020-08-22 01:43] LABS: Source, Urine Clean Catch
[2020-08-22 01:46] LABS: Appearance, Urine Clear (Clear); Bilirubin, Urine Neg (Neg); Blood, Urine 5+ (Neg); Color, Urine Yellow (P-Yellow); Glucose Qualitative, Urine Neg (Neg); Ketones, Urine Neg (Neg); Leukocyte Esterase, Urine 1+ (Neg); Nitrite, Urine Neg (Neg); Protein, Urine 2+ (Neg); Urobilinogen, Urine NORM (Normal)
[2020-08-22 01:53] LABS: Amorphous Light (0-Heavy); Bacteria Few /hpf; Hyaline Casts 0-2 /lpf (0-2); Mucus Light (0-Heavy); Squamous Epithelial Cells Not Seen /hpf (Few)
== END 2020-08-22 02:13 | disposition home or self-care (01) ==
LOC: ER 21:58
PROVIDERS: Emergency Medicine
DX: R41.82 Altered mental status, unspecified (principal); Z79.899 Other long term (current) drug therapy
CPT/HCPCS: 51701; 80053; 81001; 82140; 84484; 85025; 87086; 93005; 93010; 99285-25

== ENCOUNTER 2020-10-03 16:37 | Inpatient (IN) | payer MEDICARE, OTHER ==
[~2020-10-03] VITALS: Ht 180.3 cm; Wt 101.0 kg
[~2020-10-03 16:37] MED LIST changes: +BUME2 PO; +GUAI600T33; +MIRALAX17 G3; +MULVITA PO; -THERA1 EACH PO
[2020-10-03 17:53] LABS: BASOPHILS ABSOLUTE AUTO 0.11 K/mm3 (0.00-0.23); BASOPHILS PERCENT AUTO 1 % (0-2); EOSINOPHILS PERCENT AUTO 0 % (0-6); Hemoglobin 15.8 g/dL (13.5-17.5); IMMATURE GRAN ABSOLUTE AUTO 0.72 K/mm3 (0.00-0.10); IMMATURE GRAN PERCENT AUTO 5 % (0-1); LYMPHOCYTES ABSOLUTE AUTO 0.47 K/mm3 (0.84-5.20); LYMPHOCYTES PERCENT AUTO 3 % (21-46); MONOCYTES PERCENT AUTO 6 % (4-13); Mean Corpuscular HGB 30.8 pg (26.0-34.0); Mean Corpuscular HGB Conc 34.3 g/dL (31.5-36.5); Mean Corpuscular Volume 90 fL (80-100); Mean Platelet Volume 11.4 fL (9.1-12.4); NEUTROPHILS ABSOLUTE AUTO 13.87 K/mm3 (1.96-9.15); NEUTROPHILS PERCENT AUTO 86 % (41-73); Platelet Count 230 K/mm3 (150-400); RDW Coefficient Variation 14.2 % (11.7-14.2); RDW Standard Deviation 46.2 fL (35.1-46.3); Red Blood Cell Count 5.13 M/mm3 (4.30-5.90); White Blood Cell Count 16.17 K/mm3 (4.00-11.30)
[2020-10-03 18:17] LABS: International Normalized Ratio 1.01; Prothrombin Time Results 10.9 Sec (9.7-11.5)
[2020-10-03 18:36] LABS: Alanine Aminotransfer (ALT/SGP 26 U/L (12-78); Albumin, Blood 3.3 g/dL (3.4-5.0); Alk Phos 77 U/L (50-136); Anion Gap 10 mmol/L (6-16); Aspartate Aminotrans (AST/SGOT 22 U/L (12-37); Bilirubin, Total 0.6 mg/dL (0.1-1.0); Blood Urea Nitrogen 64 mg/dL (8-24); Bun/Creatinine Ratio 55.2 (12.0-20.0); CO2, Blood 34 mmol/L (21-32); Calcium, Blood 9.6 mg/dL (8.5-10.1); Chloride, Blood 96 mmol/L (98-108); Creatinine, Blood 1.16 mg/dL (0.60-1.20); Globulin, Blood 3.2 g/dL (2.2-4.0); Glomerular Filtration Rate >60 (60-); Glucose, Blood 180 mg/dL (70-99); Potassium, Blood 2.4 mmol/L (3.5-5.5); Sodium, Blood 140 mmol/L (136-145); Total Protein, Blood 6.5 g/dL (6.4-8.2)
[2020-10-04] MEDS ORDERED: METO2.5 PO (00:20)
--- NOTE | 2020-10-04 03:02 | NUR ---
CALLED HOSPITALIST INFORMED HIM THAT WE COULD NOT GET AN IV LINE ESTABLISHED WITH THIS PT. MY CHARGE TRIED AND FAILED. ISIDORO CARDONA FROM ICU TRIED AND FAILED, SHE STATED THE PT WAS TOO DEHYDRATED. HOSPITALIST ORDERED ME TO HOLD ALL IV MEDICATIONS UNTIL AN IV LINE COULD BE ESTABLISHED ON DAY SHIFT.
--- NOTE | 2020-10-04 03:29 | NUR ---
PT HAD LARGE LOOSE BM DURING TRANSFER FROM [facility] TO MEDICAL BED. PT CLEANED AND LINENS CHANGED. PT INCONTINENT OF URINE DURING CHANGE. PT ACTIVELY VOMITING DURING ADMISSION ASSESSMENT AND BED CHANGE.
--- NOTE | 2020-10-04 03:56 | NUR ---
ADMIT NOTE (LATE ENTRY) REPORT FROM LIVAN WEINSTEIN RN. PT TRANSPORTED TO ROOM VIA GURNEY AND TRANSFERRED BY SLIDE SHEET TO BED. PT AND FAMILY ORIENTED TO UNIT. CALL LIGHT WITHIN REACH.
--- NOTE | 2020-10-04 04:10 | NUR ---
SHIFT SUMMARY ADMITTED FOR HYPOKALEMIA/VOMITING/POSSIBLE SBO. FULL CODE. PT HAS HAD MULTIPLE EPISODES OF VOMITING DURING BED CHANGES. PT HAD LARGE LOOSE BM AFTER ENEMA IN THE ED. UNABLE TO GET AN IV ON THE PT; ISIDORO CARDONA FROM ICU ATTEMPTED US IV AND WAS UNSUCCESSFUL. HOSPITALIST CONTACTED AND INSTRUCTED TO HOLD IV MEDICATIONS UNTIL TOMORROW. PT RESTING IN BED AT THIS TIME.
--- NOTE | 2020-10-04 05:41 | NUR ---
CTA/ERECTING CRANE OPERATOR I HAVE ASSESSED THIS PT. I HAVE READ THIS ERECTING CRANE OPERATOR'S DOCUMENTATION AND I AGREE. SHIFT SUMMARY IS IN ERECTING CRANE OPERATOR NOTES.
--- NOTE | 2020-10-04 08:36 | NUR ---
DECREASED 02 SATURATION WITH AM VS PT WAS NOTED TO HAVE O2 SATURATION OF 85% WHILE ON RA. PT WAS PLACED ON 5L O2 VIA NC AND INSTRUCTED TO DEEP BREATHE. O2 SATURATION IMPROVED TO >90%. ATTEMPTED TO DECREASE FROM 5L AND PT DESATURATED TO 88%. O2 AGAIN INCREASED TO 5L. PT AWAKE AND ALERT BUT SLOW TO RESPOND AND PLEASANTLY CONFUSED. LUNG SOUND COARSE ON THE L SIDE AND DIM WITH CRACKLES TO THE RIGHT. PT PLACED ON OXIMIZER BUT CONTINUES TO NEED 4L NC TO MAINTAIN SATURATION >90%. SUCTION SET UP IN ROOM. DR. BOOKER NOTIFIED SUSPECTED ASPIRATION OF EMESIS PT WAS COUGING UP BROWN/THICK THICK SPUTUM. PT HAD COFFEE GROUND EMESIS OVERNIGHT. DR. BOOKER ORDERED A CHEST XRAY, LABS AND CONTINUOUS OXIMETRY. ANGIE LANGLEY NOTIFIED OF NEED FOR CONTINUOUS OXIMETRY.
[2020-10-04 09:11] LABS: BASOPHILS ABSOLUTE AUTO 0.06 K/mm3 (0.00-0.23); BASOPHILS PERCENT AUTO 0 % (0-2); EOSINOPHILS PERCENT AUTO 0 % (0-6); Hemoglobin 16.6 g/dL (13.5-17.5); IMMATURE GRAN ABSOLUTE AUTO 0.32 K/mm3 (0.00-0.10); IMMATURE GRAN PERCENT AUTO 2 % (0-1); LYMPHOCYTES ABSOLUTE AUTO 0.39 K/mm3 (0.84-5.20); LYMPHOCYTES PERCENT AUTO 2 % (21-46); MONOCYTES ABSOLUTE AUTO 0.95 K/mm3 (0.16-1.47); MONOCYTES PERCENT AUTO 5 % (4-13); Mean Corpuscular HGB 30.6 pg (26.0-34.0); Mean Corpuscular HGB Conc 33.9 g/dL (31.5-36.5); Mean Corpuscular Volume 90 fL (80-100); Mean Platelet Volume 11.5 fL (9.1-12.4); NEUTROPHILS PERCENT AUTO 91 % (41-73); Platelet Count 263 K/mm3 (150-400); RDW Coefficient Variation 14.5 % (11.7-14.2); RDW Standard Deviation 47.7 fL (35.1-46.3); Red Blood Cell Count 5.43 M/mm3 (4.30-5.90); White Blood Cell Count 18.22 K/mm3 (4.00-11.30)
[2020-10-04 09:40] LABS: Alanine Aminotransfer (ALT/SGP 20 U/L (12-78); Albumin, Blood 3.1 g/dL (3.4-5.0); Alk Phos 72 U/L (50-136); Anion Gap 8 mmol/L (6-16); Aspartate Aminotrans (AST/SGOT 8 U/L (12-37); Blood Urea Nitrogen 63 mg/dL (8-24); Bun/Creatinine Ratio 52.9 (12.0-20.0); CO2, Blood 35 mmol/L (21-32); Calcium, Blood 9.3 mg/dL (8.5-10.1); Chloride, Blood 98 mmol/L (98-108); Creatinine, Blood 1.19 mg/dL (0.60-1.20); Glomerular Filtration Rate >60 (60-); Glucose, Blood 167 mg/dL (70-99); Potassium, Blood 2.4 mmol/L (3.5-5.5); Sodium, Blood 141 mmol/L (136-145); Total Protein, Blood 6.1 g/dL (6.4-8.2)
--- NOTE | 2020-10-04 11:18 | NUR ---
ASSUMED CARE PT TRANSFERRED TO ICU 14 FROM MEDICAL FLOOR. ARRIVED TO UNIT AT 1045 - PT IS ALERT AND ORIENTED TO SELF AMD PLACE - LETHARGIC. PT HAVING A VERY CONGESTED, AND WEAK COUGH - ORAL CAVITY AND NASAL NARES ARE VERY DIRTY WITH DARK THICK SECRETIONS. PT WAS ON 15L NRB, WITH SPO2 95%, AND WAS IN NO RESPIRATORY DISTRESS; PT DENIES SOB. HE WAS SWITCHED OVER TO 8L OXYMIZER AND IS TOLERATING IT WELL - SPO2 94-96%. PT UNABLE TO CLEAR SECRETIONS - SO NPA WAS INSERTED TO RIGHT NARE FOR NT SUCTIONING. PT RESISSTING CARE, NOT FULLY COMPREHENDING SITUATION. PT DENIES PAIN, UNTIL HIS ABDOMEN IS PALPATED. PT RECEIVING NS AT 75 ML/HR AND KCL INFUSING WELL. PT HAVING SEMI-FREQUENT PVCs. WILL CONTINUE TO MONITOR.
--- NOTE | 2020-10-04 11:40 | NUR ---
INCREASED O2 NEEDS AT APPROXIMATELY 1050, PT WAS OBSERVED TO HAVE INCREASED OXYGEN NEEDS. PT'S OXYGEN WAS INCREASED TO 10L OXIMIZER WHILE STAFF GOT A NON-REBREATHER. PT'S O2 SATURATION WHILE ON OXIMIZER WAS BETWEEN 83 AND 86%. PT WAS PLACED ON 15L NON-REBREATHER AND SLOWLY IMPROVED TO >90%. PT WAS INSTRUCTED TO COUGH AND DEEP BREATH BUT HAD DIFFICULTY FOLLOWING DIRECTIONS. GOLF SALES ASSOCIATE WAS CALLED. BASIM IPNK ASSISTED WITH SUCTIONING. DR. BOOKER ROUNDED ON PT AND ORDERED TRANSFER TO ICU. PT TRANSFERRED TO ICU AT APPROXIMATELY 1118, REPORT GIVEN TO ZENY PINK.
--- NOTE | 2020-10-04 11:55 | NUR ---
UPDATE PT DENIES NAUSEA, AND HAS NOT VOMITTED SINCE TRANSFER. PTs COUGH IS SOMEWHAT STRONGER AND IS ABLE TO CLEAR SOME WITH THE YANKAUR, BUT HE SWALLOWS SOME OF IT WELL. HE HAD A LARGE UNFORMED BROWN BM, (NO SIGNS OF BLOOD), AND SATURATED HIS ATTENDS WITH URINE. CALLED DR. BOOKER - HE STATES NO NG TUBE UNLESS PT BECOMES NAUSEATED AND STARTS VOMITTING. BUT HE IS OKAY IF A WYLIE CATHETER IS INSERTED D/T INCONTINENCE, RISK OF SKIN BREAKDOWN, AND TO MONITOR I/Os. OXYMIZER DECREASED TO 5L, PT SPO2 IN 91-95% RANGE. WILL CONTINUE TO MONITOR.
--- NOTE | 2020-10-04 15:09 | NUR ---
update NO MAJOR CHANGES, PT ON 5L OXYMIZER WITH SPO2 92-96%. PT HAVING MULTIPLE INCONTINENT BMs AND VOIDS. WYLIE CATHETER INSERTED, AND URINE SAMPLE/CULTURE DRAWN FROM CATHETER AND SENT TO LAB. WYLIE DRAINING JANE URINE - PT TOLERATED INSERTION WELL. ATTENDS CHANGED. NO SIGNS OF BLOOD/BLEEDING IN STOOL. BED LOW AND LOCKED.
[2020-10-04 15:15] LABS: Source, Urine Catheter
[2020-10-04 15:26] LABS: Appearance, Urine Clear (Clear); Bilirubin, Urine Neg (Neg); Blood, Urine 4+ (Neg); Color, Urine Amber (P-Yellow); Glucose Qualitative, Urine Neg (Neg); Ketones, Urine Neg (Neg); Leukocyte Esterase, Urine 1+ (Neg); Nitrite, Urine Neg (Neg); Protein, Urine Neg (Neg); Specific Gravity, Urine 1.015 (1.003-1.022); Urobilinogen, Urine 1+ (Normal)
[2020-10-04 15:32] LABS: Waxy Cast 0-2 /lpf (0)
[2020-10-04 15:33] LABS: Amorphous Light (0-Heavy); Bacteria Few /hpf
[2020-10-04 15:34] LABS: Squamous Epithelial Cells Not Seen /hpf (Few); Transitional Epithelial Cells Few /hpf (0-Rare)
--- NOTE | 2020-10-04 18:06 | NUR ---
UPDATE DAUGHTER VISITED PT AND DISCUSSED CONCERNS WITH THIS RN. SHE BROUGHT IN THE PTs MEDICINE HE TAKES DAILY FOR HIS CANCER - SHE TOLD DR. MEDELLIN THIS, BUT WANTED TO REITERATE THIS TO ME THAT IT IS VERY IMPORTANT THAT THE MEDICATION NOT BE TAKEN WITH ANTICOAGULATION. THIS WAS PASSED ON TO THE PCU NURSE. PT IS NPO AND HAS NOT HAD ANY PO MEDICATIONS TODAY. THE DAUGHTER ALSO INFORMED THIS RN ABOUT THE PTs SCHEDULED IV-IG TREATMENT SCHEDULED WITH DR. WAYNE OFFICE THIS MONDAY, THIS WAS ALSO PASSED ON. THE DAUGHTER WILL CALL THEIR OFFICE MONDAY TO RESCHEDULE IF NEEDED. PT TRANSFERRED TO PCU 10 AT ~1800. VSS. 5L OXYMIZER, SPO2 90-94%. PT DENIES N/V, CHEST PAIN, SOB, AND ONLY HAS ABD PAIN WITH HARD PALPATION.
--- NOTE | 2020-10-04 18:47 | NUR ---
TRANSFER FROM ICU, SHIFT SUMMARY PT ARRIVED FROM ICU TO PCU AT APPROXIMATELY 1815. PT WAS GIVEN A CLEAN BRIEF AFTER HAVING A MEDIUM SOFT BM. THE CATHETER IS PATENT AND DRAINING. PT HAS NS RUNNING AT 75ML/HR AND THE PROTONIX WAS STARTED AGAIN AFTER BEING PAUSED DUE TO LACK OF IV ACCESS AND THE NEED TO GIVE IV POTASSIUM. PT IS COOPERATIVE BUT VERY QUIET AND SEEMS TIRED, NOT VERY INTERACTIVE. PT HAS SCATTERED BRUISES AND SKIN TEARS, SCABS ACROSS ALL EXTREMETIES; SKIN IS VERY FRAIL. PT HAS A SKIN TEAR ON THE LEFT FOREARM THAT BEGAN BLEEDING UPON ARRIVAL, IT WAS CLEANED AND DRESSED APPROPRIATELY. PT IS ON 5L O2 VIA OXYMIZER AND ON CONTINUOUS OXIMETRY. PT ARRIVED WITH NPA DEVICE FOR NT SUCTION, BUT THE PT PULLED IT OUT DURING TRANSFER AND BRIEF CHANGE, CONTACTED RT FOR REPLACEMENT, RT ROSS WILL COME AND PLACE A NEW NPA. VS STABLE OTHERWISE, PT SR AT 85BPM WHEN VERIFIED TELE. PT RESTING IN BED AT THIS TIME
[2020-10-05 04:08] LABS: Hemoglobin 13.8 g/dL (13.5-17.5); Mean Corpuscular HGB 30.8 pg (26.0-34.0); Mean Corpuscular HGB Conc 33.7 g/dL (31.5-36.5); Mean Corpuscular Volume 92 fL (80-100); Mean Platelet Volume 11.4 fL (9.1-12.4); Platelet Count 207 K/mm3 (150-400); RDW Coefficient Variation 14.7 % (11.7-14.2); RDW Standard Deviation 49.5 fL (35.1-46.3); Red Blood Cell Count 4.48 M/mm3 (4.30-5.90); White Blood Cell Count 11.46 K/mm3 (4.00-11.30)
[2020-10-05 04:24] LABS: Alanine Aminotransfer (ALT/SGP 14 U/L (12-78); Albumin, Blood 2.4 g/dL (3.4-5.0); Albumin/Globulin Ratio 0.8 (0.8-1.8); Alk Phos 60 U/L (50-136); Anion Gap 4 mmol/L (6-16); Aspartate Aminotrans (AST/SGOT 10 U/L (12-37); Bilirubin, Total 0.6 mg/dL (0.1-1.0); Blood Urea Nitrogen 66 mg/dL (8-24); Bun/Creatinine Ratio 54.1 (12.0-20.0); CO2, Blood 36 mmol/L (21-32); Calcium, Blood 8.3 mg/dL (8.5-10.1); Chloride, Blood 104 mmol/L (98-108); Creatinine, Blood 1.22 mg/dL (0.60-1.20); Globulin, Blood 2.9 g/dL (2.2-4.0); Glomerular Filtration Rate >60 (60-); Glucose, Blood 120 mg/dL (70-99); Magnesium, Blood 2.5 mg/dL (1.6-2.4); Phosphorus, Blood 3.7 mg/dL (2.5-4.9); Potassium, Blood 2.8 mmol/L (3.5-5.5); Sodium, Blood 144 mmol/L (136-145); Total Protein, Blood 5.3 g/dL (6.4-8.2)
[2020-10-05 04:27] LABS: BAND PERCENT MAN 8 % (0-8); BASOPHILS PERCENT MAN 0 % (0-2); EOSINOPHILS PERCENT MAN 0 % (0-6); LYMPHOCYTES ABSOLUTE MAN 0.34 K/mm3 (0.84-5.20); LYMPHOCYTES PERCENT MAN 3 % (21-46); MONOCYTES PERCENT MAN 7 % (4-13); NEUTROPHILS ABSOLUTE MAN 10.31 K/mm3 (1.96-9.15); SEG NEUTROPHILS PERCENT MAN 82 % (41-73); TOTAL CELLS COUNTED 100
--- NOTE | 2020-10-05 05:26 | NUR ---
SHIFT SUMMARY PATIENT FOUND TO BE A DROWSY MAN WITH BASELINE DEMENTIA ONLY ORIENTED TO SELF. FOLLOWS SOME COMMANDS BUT NOT MOST. MOSTLY STARES AND STATES YES OR NO TO SIMPLE QUESTIONS. MOVES ALL EXTREMITES BUT VERY WEAK OVERALL. SR ON THE MONITOR IN THE 80'S WITH FREQUENT PVC'S. ON 5L OXYMIZER SATING LOW 90'S. ABLE TO GET HIM TO CLEAR HIS COUGH A FEW TIMES WITH FREQUENT ENCOURAGMENT AND SITTING UP HIGH IN BED. SOME BLOOD IN SECRETIONS FROM NASAL AIRWAY BEING YANKED OUT BY PATIENT. VSS. Q2H TURNS IN PLACE. LARGE BROWN BM MID MORNING. WYLIE IN PLACE DRAINING JANE URINE. HAD TO PLACE A 2ND POWERGLIDE AND THEN ABLE TO GET ABX AND ELECTROLYTES INFUSED. PROTONIX DRIP CONTINUES.NO ACUTE CONCERNS AT THIS TIME. WILL CONTINUE TO MONITOR.
--- NOTE | 2020-10-05 12:27 | NUR ---
MORNING UPDATE PT IS MORE ORIENTED THIS AFTERNOON THAN HE WAS THIS MORNING, HE IS ABLE TO NOW TELL ME WHERE HE IS AND WHAT IS NAME AND BIRTHDAY IS. PT IS NOW WORKING WITH SPEECH THERAPY. PT STRUGGLED TO TAKE HIS MEDS THIS MORNING, HE NEEDED REMINDERS TO SWALLOW AND TO PUT HIS CHIN TO HIS NECK, HE WAS UPRIGHT AT 90 DEGREES AND MEDS WERE GIVEN IN PUDDING. PT HAD ORAL CARE COMPLETED AFTERWARD WITH THE NITRATING ACID MIXER AND RT COMPLETED SUCTIONING WHEN THE PT WAS COUGHING WITH CPT. IT WAS REPORTED FROM THE PREVIOUS SHIFT THAT THIS MORNING WHEN THE PT PULLED HIS NPA TUBE HE HAD A BLOODY NOSE AND HAS HAD SOME BLOODY SECRETIONS SINCE, WHICH IS EVIDENT IN THE SUCTION CANISTER. PT HAS BEEN LETHARGIC THIS MORNING AND NEEDED TO BE SITTING UPRIGHT TO WAKE UP.
[2020-10-05 16:34] LABS: PO2 Arterial 108 mmHg (80-100); pH Blood Arterial 7.51 (7.35-7.45)
--- NOTE | 2020-10-05 17:41 | NUR ---
SHIFT SUMMARY PT HAS CONTINUED TO BE VERY DROWSY, FAMILY STATES HIS COGNITION IS AT BASELINE. PT HAS FLUIDS AND PROTONIX RUNNING. PT WAS EVALUATED BY SPEECH THERAPY TODAY AND IT WAS DETERMINED HE IS NOT SAFE TO HAVE ANYTHING BY MOUTH INCLUDING MEDICATIONS, HOSP. WAS MADE AWARE AND IS MAKING ADJUSTMENTS TO MEDS. FAMILY OF PT IS CONCERNED ABOUT HIS ORAL CHEMO MED STATING "HE ONLY GOES WITHOUT IT FOR UP TO THREE DAYS BEFORE A PROCEDURE OR DIRECTED BY THE DOCTOR" APRYL LEE EXPLAINED THAT AT THIS POINT WITH HIS ASPIRATION HISTORY IT REALLY IS NOT SAFE, AND IT COULD BE REEVALUATED IN THE NEAR FUTURE. FAMILY STATED THEY WOULD TALK TO DR. WAYNE (ONCOLOGY) TOMORROW REGARDING THE ORAL MEDICATION AND PT'S OUTPATIENT SCHEDULED IVIG INFUSION THAT WAS SUPPOSED OT BE TOMORROW. APRYL LEE OFFERED TO ASK THE DOCTOR TO CALL THE FAMILY TO HELP ANSWER QUESTIONS AND ALLOW CONCERNS TO BE VOICED, THEY AGREED DID DR RAMIREZ, STATING SHE WOULD CALL AFTER THE ABG RESULTS WERE IN. PT HAS ORAL CARE ORDERED WITH SUCTION EVERY FOUR HOURS AND IS CURRENTLY ON 2L VIA OXYMIZER. VS STABLE. PT RESTING IN BED LISTENING TO MUSIC AT THIS TIME
[2020-10-06 04:15] LABS: Hemoglobin 11.6 g/dL (13.5-17.5); Mean Corpuscular HGB 31.5 pg (26.0-34.0); Mean Corpuscular HGB Conc 33.1 g/dL (31.5-36.5); Mean Corpuscular Volume 95 fL (80-100); Mean Platelet Volume 11.5 fL (9.1-12.4); Platelet Count 160 K/mm3 (150-400); Red Blood Cell Count 3.68 M/mm3 (4.30-5.90); White Blood Cell Count 9.29 K/mm3 (4.00-11.30)
[2020-10-06 04:34] LABS: Albumin, Blood 2.2 g/dL (3.4-5.0); Anion Gap 2 mmol/L (6-16); Blood Urea Nitrogen 47 mg/dL (8-24); Bun/Creatinine Ratio 45.2 (12.0-20.0); CO2, Blood 34 mmol/L (21-32); Calcium, Blood 7.7 mg/dL (8.5-10.1); Chloride, Blood 113 mmol/L (98-108); Creatinine, Blood 1.04 mg/dL (0.60-1.20); Glomerular Filtration Rate >60 (60-); Glucose, Blood 118 mg/dL (70-99); Magnesium, Blood 2.5 mg/dL (1.6-2.4); Potassium, Blood 2.7 mmol/L (3.5-5.5); Sodium, Blood 149 mmol/L (136-145)
[2020-10-06 04:44] LABS: PCO2 Arterial 40.1 mmHg (35-45); pH Blood Arterial 7.54 (7.35-7.45)
--- NOTE | 2020-10-06 05:37 | NUR ---
SHIFT SUMMARY PATIENT FOUND TO BE A QUIET MAN WHO HAS BASELINE DEMENTIA AND ONLY ORIENTED TO SELF AND INTERMITTENTLY THE PLACE/DATE. FOLLOWS MOST COMMANDS. GENERALIZED WEAKNESS. VSS. ON 1L OXYMIZER AND CPAP LATER IN EVENING. TOLERATED CPAP WELL AND WORE MOST OF NIGHT. Q4H ORAL CARE AND PRN. COUGH IS STRONGER AND PATIENT SPITTING UP THICK WHITE SECRETIONS. SR ON THE MONITOR WITH FREQUENT PVC'S. NO CP OR DISTRESS NOTED UPON ASSESSMENT. Q2H TURNS IN PLACE. WYLIE DRAINING WELL TO GRAVITY. 2 LARGE BMS THIS SHIFT. NO ACUTE CONCERNS AT THIS TIME. WILL CONTINUE TO MONITOR UNTIL REPORT GIVEN TO DAY SHIFT RN.
--- NOTE | 2020-10-06 15:08 | NUR ---
Spiritual care visit conducted. Upon receiving and admit referral for spiritual care, I visit patient. Patient does not speak to me but does answer "yes" and "no" questions. Patient nods affirmingly when asked if he was holding up alright and "no" when asked if he is in any pain. Patient also gives a positive nod when asked if he would like a prayer said for him. I then gladly provide prayer. Patient responds well and shows signs of an elevated mood. I will continue to remain available to patient and family.
--- NOTE | 2020-10-06 18:40 | NUR ---
SHIFT SUMMARY: RECIEVED REPORT ON 10/06/2020 AT 0700. PATIENT REMAINED ON RA WHEN RETURNING FROM IMAGING. CHEST SHOWED PNEUMONIA IMPROVING. WHILE INCREASING ATELECTASIS. DEEP BREATHING AND COUGH EDUCATION WAS GIVEN AND REFUSED BY PATIENT AT THIS TIME. TELEMETRY WAS OBSERVING A COUPLE RUNS BIGEMENY PVC. SPEECH PATHOLOGY HAS STOPPED NPO TO PUREE DIET AND NECTAR THICK LIQUIDS. ADDITIONALLY CAN HAVE ORAL MEDS VIA YOGURT, AND HAS BEEN TOLERATING THIS, ENSURING NO POCKETING AND WILL BE A FEEDER FOR PUREE DIET AT THIS TIME. PATIENT HAS RECIEVED 80 MEW OF K+ DURING THE SHIFT AND REPEAT K+ WAS 3.5. PATINET HAD PT EVAL. WYLIE IS DRAINING TO GRAVITY AND HAS SLIGHTLY DARKENED OVER THE SHIFT FROM LIGHT YELLOW TO DARKER YELLOW AT THE END OF SHIFT.
--- NOTE | 2020-10-07 05:27 | NUR ---
SHIFT SUMMARY* PATIENT FOUND TO BE AN QUIET GENTLEMAN WITH DEMENTIA WHO IS A&OX2-3, FOLLOWS MOST COMMANDS, AND POWERS. NOT VERY TALKATIVE AND USUALLY GIVES ONE WORD ANSWERS TO QUESTIONS. GENERALIZED WEAKNESS NOTED. VSS. LOW GRADE TEMP OF 99.5 AT START OF SHIFT. SR ON THE MONITOR IN THE 80'S WITH FREQUENT PVC'S. ON RA SATING MID 90'S AND TOLERATING WEARING CPAP ALL NIGHT AFTER PUT ON FOR SLEEP. PRODUCTIVE COUGH BECOMING LESS FREQUENT. TOLERATING PUREE DIET WITHOUT ISSUE. ORAL CARE PERFORMED Q4H. 2 LARGE LIQUID BM'S THROUGHOUT SHIFT. WYLIE DRAINING WELL TO GRAVITY. Q2HR TURNS IN PLACE AND PREVENTATIVE MEPILEX TO BOTTOM. IV ABX, FLUIDS, AND PROTONIX DRIP INFUSING PER ORDER. NO ACUTE CONCERNS AT THIS TIME. WILL CONTINUE TO MONITOR UNTIL REPORT GIVEN TO MIYA PINK.
[2020-10-07 06:54] LABS: BASOPHILS ABSOLUTE AUTO 0.04 K/mm3 (0.00-0.23); BASOPHILS PERCENT AUTO 1 % (0-2); EOSINOPHILS ABSOLUTE AUTO 0.02 K/mm3 (0.00-0.68); EOSINOPHILS PERCENT AUTO 0 % (0-6); Hematocrit 33.2 % (37.0-53.0); Hemoglobin 10.8 g/dL (13.5-17.5); IMMATURE GRAN ABSOLUTE AUTO 0.47 K/mm3 (0.00-0.10); IMMATURE GRAN PERCENT AUTO 6 % (0-1); LYMPHOCYTES ABSOLUTE AUTO 0.46 K/mm3 (0.84-5.20); LYMPHOCYTES PERCENT AUTO 6 % (21-46); MONOCYTES ABSOLUTE AUTO 0.44 K/mm3 (0.16-1.47); MONOCYTES PERCENT AUTO 6 % (4-13); Mean Corpuscular HGB 31.1 pg (26.0-34.0); Mean Corpuscular HGB Conc 32.5 g/dL (31.5-36.5); Mean Corpuscular Volume 96 fL (80-100); Mean Platelet Volume 10.9 fL (9.1-12.4); NEUTROPHILS ABSOLUTE AUTO 6.42 K/mm3 (1.96-9.15); NEUTROPHILS PERCENT AUTO 82 % (41-73); NRBC ABSOLUTE 0.02 K/mm3 (0.00-0.02); NRBC Auto 0.3 /100 WBC (0.0-0.2); Platelet Count 139 K/mm3 (150-400); RDW Coefficient Variation 15.2 % (11.7-14.2); RDW Standard Deviation 53.9 fL (35.1-46.3); Red Blood Cell Count 3.47 M/mm3 (4.30-5.90); White Blood Cell Count 7.85 K/mm3 (4.00-11.30)
[2020-10-07 07:11] LABS: Alanine Aminotransfer (ALT/SGP 13 U/L (12-78); Albumin, Blood 2.1 g/dL (3.4-5.0); Albumin/Globulin Ratio 0.9 (0.8-1.8); Alk Phos 46 U/L (50-136); Anion Gap 3 mmol/L (6-16); Aspartate Aminotrans (AST/SGOT 11 U/L (12-37); Bilirubin, Total 0.3 mg/dL (0.1-1.0); Blood Urea Nitrogen 34 mg/dL (8-24); Bun/Creatinine Ratio 35.6 (12.0-20.0); CO2, Blood 31 mmol/L (21-32); Calcium, Blood 7.4 mg/dL (8.5-10.1); Chloride, Blood 114 mmol/L (98-108); Creatinine, Blood 0.96 mg/dL (0.60-1.20); Globulin, Blood 2.4 g/dL (2.2-4.0); Glomerular Filtration Rate >60 (60-); Glucose, Blood 99 mg/dL (70-99); Potassium, Blood 3.1 mmol/L (3.5-5.5); Sodium, Blood 148 mmol/L (136-145); Total Protein, Blood 4.5 g/dL (6.4-8.2)
--- NOTE | 2020-10-07 18:42 | NUR ---
SHIFT SUMMARY PT HAS BEEN DROWSY TODAY, BUT MORE INTERACTIVE WITH STAFF. PT REFUSED TO WORK WITH PHYSIAL THERAPY AND OCCUPATIONAL THERAPY TODAY. PT WAS TURNED Q2H AND HAD HIS BRIEF CHANGED NEEDED. PT CONTINUES TO HAVE THE INDWELLING CATHETER TO PROTECT HIS SKIN AND GIVE ACCURATE I/Os HE IS INCONTINENT OF BOTH URINE AND STOOL. PT IS ON THE PROTONIX DRIP, HIS STOOL IS STILL LOOSE BUT IS NO LONGER BLACK, TARRY. PT HAS BEEN ABLE TO DRINK THICKENED LIQUIDS TODAY AND HAVE HIS MEALS WITH HELP. PT IS NOW MEDICAL STATUS, VS STABLE, PT ON RA AND CPAP AT [facility]. PT IS RESTING IN BED AT THIS TIME
[2020-10-08 03:57] LABS: Hematocrit 36.2 % (37.0-53.0); Hemoglobin 11.5 g/dL (13.5-17.5); Mean Corpuscular HGB 30.6 pg (26.0-34.0); Mean Corpuscular HGB Conc 31.8 g/dL (31.5-36.5); Mean Corpuscular Volume 96 fL (80-100); Mean Platelet Volume 10.7 fL (9.1-12.4); NRBC ABSOLUTE 0.02 K/mm3 (0.00-0.02); NRBC Auto 0.3 /100 WBC (0.0-0.2); Platelet Count 146 K/mm3 (150-400); RDW Coefficient Variation 14.9 % (11.7-14.2); RDW Standard Deviation 53.1 fL (35.1-46.3); Red Blood Cell Count 3.76 M/mm3 (4.30-5.90); White Blood Cell Count 7.02 K/mm3 (4.00-11.30)
[2020-10-08 04:14] LABS: Albumin, Blood 2.2 g/dL (3.4-5.0); Anion Gap 2 mmol/L (6-16); Blood Urea Nitrogen 31 mg/dL (8-24); Bun/Creatinine Ratio 36.1 (12.0-20.0); CO2, Blood 31 mmol/L (21-32); Calcium, Blood 7.4 mg/dL (8.5-10.1); Chloride, Blood 115 mmol/L (98-108); Creatinine, Blood 0.86 mg/dL (0.60-1.20); Glomerular Filtration Rate >60 (60-); Glucose, Blood 92 mg/dL (70-99); Phosphorus, Blood 1.6 mg/dL (2.5-4.9); Potassium, Blood 3.6 mmol/L (3.5-5.5); Sodium, Blood 148 mmol/L (136-145)
--- NOTE | 2020-10-08 06:29 | NUR ---
pt oriented to self. one to two-word conversation. easily aggitated. dislikes being repositioned. bilateral forearms severely bruised and painful to movement. no stools this shift. vss. denies pain.
--- NOTE | 2020-10-08 14:31 | NUR ---
REPORT GIVEN TO RIN PINK ON MEDICAL.
--- NOTE | 2020-10-08 16:04 | NUR ---
TRANSFER SUMMARY PT ARRIVED TO UNIT @ APPROX 1445 FROM PCU. POTASSIUM PHOSPATE RUNNING AT TIME OF ARRIVAL IN PG. PT A&Ox2, RESPONDS TO VERBAL STIMULI, FORGETFUL AND CONFUSED @ TIMES. DOES NOT ANSWER ALL QUESTIONS. SEVERE BRUISING NOTED ON THE R ARM, PT STATES FROM A PREVIOUS HOSPITAL STAY A MONTH OR SO AGO. ON RA, DENIES SOB @ THIS TIME. PT HAS ORDERS TO WORK c PT, HAS NOT BEEN OUT OF BED SINCE ADMIT. INESSA PATENT AND DRAINING.
--- NOTE | 2020-10-08 18:25 | NUR ---
SHIFT SUMMARY NO ACUTE CHANGES SINCE ARRIVAL TO UNIT. PT DENIES ANY DISTRESS AND APPEARS COMFORTABLE. TOLERATING DIET AND SWALLOWING WELL. WYLIE REMAINS PATENT AND DRAINING CLEAR YELLOW URINE. PT IS CURRENTLY SLEEPING, CALL LIGHT WITHIN REACH. PT DOES NOT CALL OR ATTEMPT TO GET OUT OF BED THIS SHIFT, BED ALARM ON FOR PT SAFETY.
--- NOTE | 2020-10-09 05:20 | NUR ---
SHIFT SUMMARY ALERT TO SELF AND PLACE. FOLLOWS DIRECTIONS AND ABLE TO MAKE NEEDS KNOWN. COOPERATIVE WITH CARE. NO C/O PAIN/DISCOMFORT. WYLIE CATH REMAINS SECURED AND DRAINING CLEAR YELLOW URINE TO GRAVITY. NO BM NOTED THIS SHIFT; ATTENDS IN PLACE. PG TO MICHELLE INFILTRATED; FLOATED ON PILLOWS ABOVE HEART LEVEL. PEDIATRIC ACUTE CARE UNIT NURSE REPLACED PG TO GINNA. APPEARED TO REST OFF AND ON. NO OTHER ACUTE CHANGES NOTED. BED REMAINED IN LOWEST POSITION; ALARM ON. CALL LIGHT AND BELONGINGS WITHIN REACH. CONTINUE WITH CURRENT PLAN OF CARE. REPORT TO ONCOMING RN.
[2020-10-09 10:46] LABS: Hemoglobin 14.1 g/dL (13.5-17.5); Mean Corpuscular HGB 31.3 pg (26.0-34.0); Mean Corpuscular Volume 98 fL (80-100); Mean Platelet Volume 11.4 fL (9.1-12.4); Platelet Count 158 K/mm3 (150-400); RDW Coefficient Variation 14.9 % (11.7-14.2); RDW Standard Deviation 53.2 fL (35.1-46.3); Red Blood Cell Count 4.51 M/mm3 (4.30-5.90); White Blood Cell Count 10.08 K/mm3 (4.00-11.30)
[2020-10-09 10:56] LABS: Albumin, Blood 2.6 g/dL (3.4-5.0); Anion Gap 5 mmol/L (6-16); Blood Urea Nitrogen 26 mg/dL (8-24); Bun/Creatinine Ratio 31.2 (12.0-20.0); CO2, Blood 31 mmol/L (21-32); Calcium, Blood 7.6 mg/dL (8.5-10.1); Chloride, Blood 107 mmol/L (98-108); Creatinine, Blood 0.83 mg/dL (0.60-1.20); Glomerular Filtration Rate >60 (60-); Glucose, Blood 97 mg/dL (70-99); Phosphorus, Blood 2.2 mg/dL (2.5-4.9); Potassium, Blood 2.9 mmol/L (3.5-5.5); Sodium, Blood 143 mmol/L (136-145)
[2020-10-09] MEDS ORDERED: PANT40 PO (11:44)
[2020-10-09] MEDS ORDERED: LIQUACEL PO (11:45)
[2020-10-09] MEDS ORDERED: BANATROL PLUS1 EAC1 PO (11:45)
[2020-10-09] MEDS ORDERED: CEFU500T30 PO (11:46)
--- NOTE | 2020-10-09 19:27 | NUR ---
SHIFT SUMMARY PT TO DISCHARGE THIS SHIFT, HOWEVER REFUSING TO WORK c PHYSICAL THERAPY SINCE ADMISSION AND UNABLE TO STAND PIVOT TO WHEELCHAIR SAFELY. DAUGHTER (CAREGIVER) UNCOMFORTABLE c TAKING PT HOME TODAY. DAUGHTER IS HOPEFULY TO COME IN c PHYSICAL THERAPY TO ENCOURAGE PT TO PARTICPATE AND STAND PIVOT TO WHEELCHAIR. TLAANG NOTIFIED THAT PT WAS NOT DC'D. FAMILY DOES NOT WANT PT TO GO TO SNF. WYLIE REMOVED AND PT VOIDING, INCONT OF STOOL AND URINE. MULTIPLE LARGE SOFT BM THIS SHIFT, LACTULOSE HELD THIS AM. PT DENIES ANY PAIN OR DISTRESS. MICHELLE APPEARS LESS SWOLLEN AFTER INFILTRATION, REMAINED ELEVATED AT HEART LEVEL T/O SHIFT. GOOD ORAL INTAKE. PT RESTING IN BED WITH CALL LIGHT WITHIN REACH, BED ALARM ON AND BED IN LOWEST POSITION.
--- NOTE | 2020-10-10 04:57 | NUR ---
SHIFT SUMMARY- PT. ALERT TO SELF, ON BEDREST. REPOSITIONED FOR COMFORT AND PRN. PT. INCONT HAVING MULTIPLE LOOSE STOOLS DURING THE NIGHT, ATTENDS IN PLACE. DENIED ANY PAIN OR DISCOMFORT. CPAP IN PLACE AND BIOX ON. VSS. CALL LIGHT WITHIN REACH AND SIDE RAILS UPX2. WILL CONT TO MONITOR.
[2020-10-10 09:33] LABS: Albumin, Blood 2.2 g/dL (3.4-5.0); Anion Gap 4 mmol/L (6-16); Blood Urea Nitrogen 29 mg/dL (8-24); Bun/Creatinine Ratio 35.2 (12.0-20.0); CO2, Blood 27 mmol/L (21-32); Calcium, Blood 7.1 mg/dL (8.5-10.1); Chloride, Blood 107 mmol/L (98-108); Creatinine, Blood 0.82 mg/dL (0.60-1.20); Glomerular Filtration Rate >60 (60-); Glucose, Blood 138 mg/dL (70-99); Phosphorus, Blood 2.3 mg/dL (2.5-4.9); Potassium, Blood 3.9 mmol/L (3.5-5.5); Sodium, Blood 138 mmol/L (136-145)
--- NOTE | 2020-10-10 13:53 | NUR ---
called to meet with family pt and physician. Goal was to get patient up and transfer home. pt very hard of hearing and stoic. he was pushing back and resisitant to movement. Had some outbursts. He is not motivated to return home. Family at bedside daughter very anxious about his care. We had a long and blunt conversation about his needs. Suggested we take a break and stop stimulating him. Nathan states he still enjoys food but other than that he sleeps constantly. Sat pt up in bed and slowly fed him his lunch. About half way through the meal he was a little more interactive and said a few words. Review of his symptoms and his aggittion and non verbal cues of discomfort and pain with daughter. Suggested her rest after lunch and get unique tylenol and then we may be able to get him home. Daughter stated she did speak with Dr. Lester about hospice care. She is unsure where to draw the line. Her brother will be here in three weeks and she hopes he will help with the decision. We reviewed quality of life over quantity and suffering and symptoms. She struggles with stopping his cancer treatments. Advised if he get better symptom managment and improves she has the choice to revoke hospice and wendy rothman for furhter care. Will continue to follow up with plan of care.
--- NOTE | 2020-10-10 18:22 | NUR ---
SHIFT SUMMARY PT ALERT CONFUSED AT TIMES. PT MEDICATED FOR PAIN PER EMAR TYLENOL PRN. PT SCATTERED BRUISING/RED SKIN BUE. PT SUPPOSED TO DISCHARGE TODAY; BUT PT WAS NOT ABLE TO PARTICIPATE WITH PHYSICAL THERAPIST. PT VERY RESISTED AND AGITATED WHEN WE TRY TO WORK WITH HIM. BED. PALLIATIVE CARE IN THE ROOM WITH FAMILY. WILL TRY TO DISCHARGE TOMORROW PER . BED IS IN THE LOWEST POSITION AND CALL LIGHT WITHIN REACH
--- NOTE | 2020-10-11 05:32 | NUR ---
SHIFT SUMMARY- NO ACUTE EVENTS OVERNIGHT. PT. SLEPT T/O THE NIGHT, NO APPARENT DISTRESS NOTED. PT. HAD 1 LOOSE STOOL LAST NIGHT. NO COMPLAINTS OF PAIN OR DISCOMFORT, VSS. CALL LIGHT WITHIN REACH AND SIDE RAILS UPX2. WILL CONT TO MONITOR.
[2020-10-11 05:33] LABS: Anion Gap 4 mmol/L (6-16); Blood Urea Nitrogen 27 mg/dL (8-24); Bun/Creatinine Ratio 33.7 (12.0-20.0); CO2, Blood 30 mmol/L (21-32); Calcium, Blood 6.8 mg/dL (8.5-10.1); Chloride, Blood 108 mmol/L (98-108); Glomerular Filtration Rate >60 (60-); Glucose, Blood 83 mg/dL (70-99); Phosphorus, Blood 2.5 mg/dL (2.5-4.9); Potassium, Blood 3.8 mmol/L (3.5-5.5); Sodium, Blood 142 mmol/L (136-145)
--- NOTE | 2020-10-11 18:38 | NUR ---
SHIFT SUMMARY PT AXO TO SELF, FAMILY AND FOLLOWING DIRECTIONS. ATTEMPTED TO TRANSFER PATIENT TO WHEELCHAIR VIA PIVOT TRANSFER. PT STOOD BUT SAT MULTIPLE TIMES BUT WAS NOT ABLE TO TURN INTO CHAIR. SIT TO STAND ATTEMPTED BUT WAS UNSUCCESSFUL. PT WAS ABLE TO REST THEN PRIOR TO DINNER PT REFUSED TO ATTEMPT PIVOT TRANSFER. PT UP TO RECLINER VIA LIFT FOR DINNER. BED IN LOW POSITION, CALL LIGHT WITHIN REACH. VSS THOUGH PULSE OF 57 NOTED. MEDS ONE AT A TIME IN YOGURT.
--- NOTE | 2020-10-11 19:20 | NUR ---
Suggest oncology see pt on maonday and team meeting review advocacy for pt due to his suffering and decline.
--- NOTE | 2020-10-12 04:02 | NUR ---
SHIFT SUMMARY A/O X2, CURRENTLY ON BEDREST D/T IMMOBILITY. GROSS MOVEMENT TO BLE. INCONTINENT OF URINE AND STOOL, ATTENDS IN PLACE. Q2 REPOSITIONING AND ORAL CARE PRN. VSS, NO ACUTE CHANGES AT THIS TIME. BED IN LOWEST POSITION WITH CALL LIGHT IN REACH. WILL CONTINUE TO MONITOR AND REPORT TO ONCOMING RN.
[2020-10-12 06:01] LABS: Albumin, Blood 2.1 g/dL (3.4-5.0); Anion Gap 5 mmol/L (6-16); Blood Urea Nitrogen 23 mg/dL (8-24); Bun/Creatinine Ratio 32.8 (12.0-20.0); CO2, Blood 28 mmol/L (21-32); Calcium, Blood 6.9 mg/dL (8.5-10.1); Chloride, Blood 109 mmol/L (98-108); Glomerular Filtration Rate >60 (60-); Glucose, Blood 64 mg/dL (70-99); Phosphorus, Blood 2.4 mg/dL (2.5-4.9); Potassium, Blood 3.9 mmol/L (3.5-5.5); Sodium, Blood 142 mmol/L (136-145)
--- NOTE | 2020-10-12 06:25 | NUR ---
GLUCOSE OF 64 NOTED ON AM LABS, PT ASYMPTOMATIC AT THIS TIME. NECTAR THICK APPLE JUICE AND SNACK GIVEN. WILL CONTINUE TO MONITOR.
--- NOTE | 2020-10-12 18:33 | NUR ---
SHIFT SUMMARY: NO ACUTE CHANGES TO REPORT THIS SHIFT. PT ALERT; OCC CONFUSION; CALM AND COOEPRATIVE WITH CARE. NO C/O PAIN THIS SHIFT. HX NON-HODGKIN'S LYMPHOMA; ONCOLOGY (DR Aure WAYNE) CONSULTED THIS SHIFT. ASPIRATION PRECAUTIONS; ORAL MEDS WHOLE IN APPLESAUCE. PT & OT FOLLOWING; FAMILY UNPREPARED TO CARE FOR PATIENT AT PRESENT LEVEL OF CARE. WCTM.
--- NOTE | 2020-10-13 04:22 | NUR ---
SHIFT SUMMARY A/O 2-3, PT APPEARS FLAT AND WITHDRAWN AT TIMES, SOME CONFUSION NOTED. DENIES PAIN OR SOB. CURRENTLY ON RA WITH SATS GREATER THAN 92. VSS, NO ACUTE CHANGES AT THIS TIME. BED IN LOWEST POSITION WITH CALL LIGHT IN REACH. WILL CONTINUE TO MONITOR AND REPORT TO ONCOMING RN.
--- NOTE | 2020-10-13 17:35 | NUR ---
NURSING NOTE: PER FAMILY THEY WOULD LIKE TO BE PRESENT FOR PHYSICAL THERAPY ON 10/14. FAMILY WILL BE PRESENT STARTING FROM APPROXIMATELY 1000.
--- NOTE | 2020-10-13 19:17 | NUR ---
SHIFT SUMMARY: NO ACUTE CHANGES TO REPORT THIS SHIFT. PT ALERT; OCC CONFUSION; IRRITABLE; OCC UNCOOPERATIVE WITH CARE-ESPECIALLY PHYSICAL THERAPY. MEDICATED FOR GENERALIZED PAIN PER EMAR. ASPIRATION PRECAUTIONS-FEEDER. PHYSICAL THERAPY CONTINUING. REPORT GIVEN TO ONCOMING RN.
--- NOTE | 2020-10-14 04:34 | NUR ---
SHIFT SUMMARY A/O X2, FLAT WITHDRAWN AFFECT THIS SHIFT. Q2 REPOSITIONING AND ORAL CARE PRN. DENIES PAIN OR SOB. PT REFUSED TO WEAR CPAP. CONT. BIOX IN PLACE WITH SATS GREATER THAN 92. VSS, NO ACUTE CHANGES AT THIS TIME. BED IN LOWEST POSITION WITH CALL LIGHT IN REACH. WILL CONTINUE TO MONITOR AND REPORT TO ONCOMING RN.
--- NOTE | 2020-10-14 18:30 | NUR ---
SHIFT SUMMARY DAUGHTER AND AT BEDSIDE THIS MORNING TO AID IN ENCOURAGING PT TO GET UP AND WORK WITH P.T. PT ADAMENTLY REFUSED TO PARTICIPATE IN P.T. HAS BEEN SLEEPING ON AND OFF THROUGH THE DAY. BEING FED MEALS AND APPEARED TO TOLERATE ADVANCE TO [facility] SOFT DIET WITH NO S/S OF ASPIRATION. DAUGHTER REPORTS HOSPTIAL BED BEING DELIVERED THIS AFTERNOON TO HIS HOME AND A LIFT TO BE DELIVERED TOMORROW MORNING AT 10. SCDS APPLIED NEAR LUNCHTIME AND HAS TOLERATED WITH NO COMPLAINTS. POWER GLIDE DRESSING CHANGED.
--- NOTE | 2020-10-15 04:13 | NUR ---
SHIFT SUMMARY PT HAS A FLAT AFFECT. LACKS MOTIVATION. WHEN ASKING PT ABOUT NOT WANTING TO GET OUT OF BED HE STATES, "NOT EXACTLY" BUT REFUSED ANY ATTEMPTS AT GETTING OUT OF BED THIS EVENING. PT HAS SCATTERED BRUISING AND SMALL ABRASIONS THROUGHOUT. BRUISING SEVERE TO BUE'S. PT ALERT TO SELF ONLY. PT DOES ASSIST WITH TURNING IN THE BED AND DOES QUITE WELL WITH THAT WHEN ASKED. PT INCONTINENT. ATTENDS IN PLACE. PT SLEPT MUCH OF THE NIGHT. NO COMPLAINTS OF PAIN. VITAL SIGNS STABLE. NO ACUTE CHANGES THIS EVENING.
[2020-10-15 08:10] LABS: IMMUNOGLOBULIN A, QN, SERUM 20 mg/dL (61-437); IMMUNOGLOBULIN G, QN, SERUM 570 mg/dL (603-1613); IMMUNOGLOBULIN M, QN, SERUM 8 mg/dL (15-143)
[2020-10-15] MEDS ORDERED: NORVASC5 MG PO (11:53)
--- NOTE | 2020-10-15 16:00 | NUR ---
DISCHARGE INSTRUCTIONS COMPLETED AND DISCUSSED WITH PTS DAUGHTER EXPRESSING UNDERSTANDING. DAUGHTER DID COMMENT ON A FEW DISCHARGE ITEMS ON MED LIST THAT SHE HAS OTHER ALTERNATIVES SHE WILL POSSIBLE USE. [facility]. DAUGHTER AWARE OF PT LEAVING
[2020-10-16 15:11] LABS: A/G RATIO 1.4 (0.7-1.7); ALBUMIN 2.8 g/dL (2.9-4.4); ALPHA-1-GLOBULIN 0.2 g/dL (0.0-0.4); ALPHA-2-GLOBULIN 0.7 g/dL (0.4-1.0); BETA GLOBULIN 0.6 g/dL (0.7-1.3); GAMMA GLOBULIN 0.5 g/dL (0.4-1.8); IMMUNOGLOBULIN A, QN, SERUM 20 mg/dL (61-437); IMMUNOGLOBULIN G, QN, SERUM 565 mg/dL (603-1613); IMMUNOGLOBULIN M, QN, SERUM 9 mg/dL (15-143); M-SPIKE 0.1 g/dL (Not Observed); PROTEIN, TOTAL, SERUM 4.8 g/dL (6.0-8.5)
== END 2020-10-15 15:55 | disposition home health service (06) | DRG 177 ==
LOC: ER 16:37 → MEDS 16:38 → PCU 23:18 → MEDS 23:38 → ICUW 10-04 10:45 → PCU 10-04 18:13 → MEDS 10-08 14:45 → ENPENDDIS 10-09 12:38 → MEDS 10-15 15:55
PROVIDERS: Family Medicine; Internal Medicine; Internal Medicine Hematology & Oncology; Student in an Organized Health Care Education/Training Program; ADMIT Internal Medicine
DX: J69.0 Pneumonitis due to inhalation of food and vomit (principal); J96.01 Acute respiratory failure with hypoxia; N13.30 Unspecified hydronephrosis; G93.1 Anoxic brain damage, not elsewhere classified; E46 Unspecified protein-calorie malnutrition; K59.00 Constipation, unspecified; Z68.29 Body mass index [BMI] 29.0-29.9, adult; E87.6 Hypokalemia; Z88.0 Allergy status to penicillin; Z88.8 Allergy status to other drugs, medicaments and biological substances; Z88.1 Allergy status to other antibiotic agents; Z79.899 Other long term (current) drug therapy; E83.39 Other disorders of phosphorus metabolism; F41.9 Anxiety disorder, unspecified; F32.9 Major depressive disorder, single episode, unspecified; Z86.73 Personal history of transient ischemic attack (TIA), and cerebral infarction without residual deficits; E86.0 Dehydration; C88.0 Waldenstrom macroglobulinemia; Z85.46 Personal history of malignant neoplasm of prostate; Z79.82 Long term (current) use of aspirin; Z91.018 Allergy to other foods; Z96.651 Presence of right artificial knee joint; Z98.890 Other specified postprocedural states; Z90.49 Acquired absence of other specified parts of digestive tract; K21.9 Gastro-esophageal reflux disease without esophagitis; Z85.72 Personal history of non-Hodgkin lymphomas
CPT/HCPCS: 36415; 36600; 51702; 71045; 71046; 74018; 74176; 74177; 80053; 80069; 81001; 82784; 82803; 82947; 83690; 83735; 83880; 84100; 84132; 84145; 84165; 85025; 85027; 85610; 92526; 92610; 94640; 94660; 94667; 94668; 94760; 94762; 96361; 96365; 96366; 96375; 97110; 97162; 97166; 97530; 99285-25; A9270; C1751; C9113; J0456; J0696; J1568; J2250; J2405; J3010; J3480; J7030; J7040; J7050; J7060; J7070; Q9967

== ENCOUNTER → 2020-12-23 | Outpatient (CLI) | payer OTHER, MEDICARE ==
[~2020-12-23] MED LIST changes: +BANATROL PLUS1 EAC1 PO; +CEFU500T30 PO; +LIQUACEL PO; +METO2.5 PO; +NORVASC5 MG PO
[2020-12-23 11:33] LABS: Source, Urine Clean Catch
[2020-12-23 12:24] LABS: Appearance, Urine Cloudy (Clear); Bilirubin, Urine Neg (Neg); Blood, Urine 5+ (Neg); Color, Urine Yellow (P-Yellow); Glucose Qualitative, Urine Neg (Neg); Ketones, Urine Neg (Neg); Leukocyte Esterase, Urine 1+ (Neg); Nitrite, Urine Neg (Neg); Protein, Urine 1+ (Neg); Urobilinogen, Urine NORM (Normal)
[2020-12-23 12:34] LABS: Red Blood Cells, Urine TNTC /hpf (0-2)
[2020-12-23 12:36] LABS: Bacteria Rare /hpf; Hyaline Casts 0-2 /lpf (0-2); Mucus Light (0-Heavy); Squamous Epithelial Cells Rare /hpf (Few)
== END | disposition home or self-care (01) ==
LOC: LAB 10:50 → LAB SHORT 10:50
PROVIDERS: Family Medicine
DX: R35.0 Frequency of micturition (principal); R30.0 Dysuria
CPT/HCPCS: 81001; 87086